=== PATIENT | male | born 1965 | race Caucasian/White ===

== ENCOUNTER 2020-07-25 13:14 | Emergency (ER) | payer OTHER, SELFPAY ==
--- NOTE | ~2020-07-25 | CT_ITS ---
EXAMINATION: CT abdomen pelvis wo con DATE: 07/25/2020 14:25 INDICATION: Left flank pain. TECHNIQUE: Computed tomography (CT) of the abdomen and pelvis was performed without intravenous contr ast. Automated exposure control and iterative reconstruction technique were employed. The dose-length product was 245.10 mGy-cm. COMPARISON: None. FINDINGS: The visualized portions of the lung bases demonstrate mild atelectasis. No pleural effusion . The heart size is normal. No pericardial effusion. The liver, spleen, gallbladder, pancreas, adrena l glands, and right kidney are normal. There are cysts in left kidney measuring up to 2.0 cm. There i s a 2 mm stone in left kidney. Stool distends the proximal colon. The appendix is normal. There are n o pathologically enlarged lymph nodes. There is no free intraperitoneal fluid. IMPRESSION: 1. 2 mm nonobstructing left kidney stone. Reviewed, dictated and finalized at location B. [employer]
[2020-07-25 14:09] VITALS: BP 126/87; PULSE 80; RESP 17; TEMP 36.2; O2SAT 97
--- NOTE | 2020-07-25 14:16 | ED.ABDPAIN ---
HPI - Abdominal Pain General Chief Complaint: Abdominal Pain Stated Complaint: L FLANK PAIN X2D Time Seen by Provider: 07/25/20 14:13 Source: patient Mode of arrival: ambulatory Limitations: no limitations History of Present Illness HPI narrative: Patient is a 55-year-old male complaining of left flank pain rating to his left lower quadrant, 5 out of 10, sharp started proximately 2 days ago. Patient denies any nausea vomiting diarrhea. Patient denies any chest pain, shortness of breath, abdominal pain, fever or chills. Patient denies any urinary symptoms. Related Data Allergies Allergy/AdvReac Type Severity Reaction Status Date / Time No Known Allergies Allergy Unknown Unverified 11/19/08 12:02 Review of Systems Review of Systems: All systems reviewed & are unremarkable except as noted in HPI and below Constitutional: Constitutional: Denies body ache(s), Denies chills, Denies excessive sweating, Denies fatigue, Denies fever(s), Denies headache(s), Denies lethargy, Denies malaise, Denies weakness and Denies weight loss Eyes: Eyes: Denies blurry vision, Denies change in vision and Denies loss of vision ENT: Denies dizziness, Denies ear discharge, Denies headache(s), Denies lip swelling, Denies epistaxis, Denies nasal congestion, Denies neck pain, Denies throat swelling and Denies tongue swelling Cardiovascular: Cardiovascular: Denies chest pain, Denies chest pain at rest, Denies chest pain with activity, Denies diaphoresis, Denies rapid heart rate, Denies edema, Denies irregular heart rhythm, Denies lightheadedness, Denies palpitations, Denies dyspnea and Denies dyspnea on exertion Respiratory: Respiratory: Denies chest congestion, Denies cough, Denies hemoptysis, Denies dyspnea and Denies dyspnea on exertion Gastrointestinal: Gastrointestinal: Denies abdominal pain, Denies melena, Denies hematochezia, Denies diarrhea, Denies nausea, Denies vomiting and Denies hematemesis Musculoskeletal: Musculoskeletal: Denies abnormal gait, Denies deformity, Denies joint swelling, Denies limited range of motion, Denies neck pain and Denies numbness Neurologic: Denies Abnormal speech present, Denies abnormal gait, Denies confusion, Denies dizziness, Denies headache(s), Denies focal weakness, Denies loss of vision, Denies numbness, Denies Other visual disturbances, Denies Sensory deficit (Neuro) and Denies weakness Psychiatric: Psychiatric: Denies confusion, Denies depression, Denies auditory hallucinations, Denies homicidal ideation and Denies suicidal ideation Endocrine: Endocrine: Denies cold intolerance, Denies excessive sweating, Denies fatigue, Denies heat intolerance and Denies palpitations Hematologic/Lymphatic: Hematologic/Lymphatic: Denies easy bleeding and Denies easy bruising Allergic/Immunologic: Allergic/Immunologic: Denies lip swelling, Denies throat swelling and Denies tongue swelling [facility] Social History Social History Gender identity (if verbalized by the patient): Male Exam Const: General: cooperative, healthy appearing, comfortable, no acute distress, well developed, alert and awake; No confusion Orientation/consciousness: oriented to person, oriented to place, oriented to time, patient oriented x3 and No confusion Limitations: no limitations HENMT: Head: normal to inspection, normocephalic and atraumatic Ears: hearing grossly normal bilaterally, TM normal on the right and TM normal on the left General nose exam: Normal external nose present, Normal nares present and No nasal discharge present Face and sinus: normal facial exam Mouth: Yes Normal oral and palatal mucosa present, Yes lip normal, Yes tongue normal and Yes oropharynx normal Throat: posterior oropharynx normal, tonsils normal and uvula midline Eyes: General: appearance normal, both eyes and all related structures Pupils: Equal, round and reactive pupils present EOM: EOMs intact bilaterally Neck: Neck: normal visual inspection, full ROM, no lymphadenopa
--- NOTE | 2020-07-25 14:29 | PC.NURSE ---
1425 - Patient instructed that a urine specimen is needed. Urinal provided. 1427 - Patient to CT.
[2020-07-25 14:31] LABS: Basophils Percent Auto 0.5 % (0.2-1.2); Eosinophils Absolute Auto 0.1 K/mm3 (0-0.3); Eosinophils Percent Auto 0.8 % (0-4.4); Hematocrit 50.3 % (42.0-52.0); Hemoglobin 17.5 g/dL (14.0-18.0); Immature Granulocyte Absolute 0.03 K/mm3 (0.00-0.031); Immature Granulocyte Percent A 0.3 % (0-0.5); Lymphocytes Absolute Auto 1.78 K/mm3 (0.9-3.2); Lymphocytes Percent Auto 20.2 % (18.3-44.2); Mean Corpuscular HGB Conc 34.8 g/dl (32-36); Mean Corpuscular Hemoglobin 31.4 pg (26-34); Mean Corpuscular Volume 90.3 fl (80-100); Mean Platelet Volume 8.8 fl (7.4-10.4); Monocytes Absolute Auto 0.7 K/mm3 (0.1-0.6); Monocytes Percent Auto 7.9 % (2.6-8.5); Neutrophils Absolute Auto 6.2 K/mm3 (1.3-6.7); Neutrophils Percent Auto 70.3 % (45.5-73.1); Platelet Count Result 203 k/mm3 (150-375); Red Blood Count 5.57 M/mm3 (4.6-6.20); Red Cell Distribution Width 12.1 % (11.5-14.5); White Blood Count 8.8 K/mm3 (4.5-10.0)
[2020-07-25 14:34] LABS: Add Urine Microscopic? YES; Appearance Urine Clear (Clear); Bilirubin Urine Negative (Negative); Blood Urine 1+ (Negative); Color Urine Yellow (Yellow); Glucose Urine UA Negative (Negative); Ketones Urine Negative (Negative); Leukocyte Esterase Ur Negative LEU/UL (Negative); Mucus Urine Rare /lpf; Nitrate Urine Negative (Negative); Protein Urine 1+ mg/dL (Negative); Specific Grav Ur 1.028 (1.001-1.035); WBC Urine 0-3 /hpf
[2020-07-25 14:42] LABS: Alanine Aminotransferase 17 U/L (4-50); Alkaline Phosphatase 95 U/L (38-126); Anion Gap 6 mmol/L (8-16); Aspartate Amino Transferase 27 U/L (17-59); Bilirubin,Total 0.8 mg/dL (0.2-1.3); Blood Urea Nitrogen 8 mg/dL (9-20); Calcium 9.4 mg/dL (8.4-10.2); Carbon Dioxide 28 mmol/L (22-30); Chloride 99 mmol/L (98-107); Estimated CRCL calculation 92 ml/min; Estimated Glomerular Filt Rate > 60; Glucose 115 mg/dL (75-110); Lipase 29 U/L (23-300); Potassium 4.1 mmol/L (3.4-5.0); Sodium 133 mmol/L (137-145)
[2020-07-25 14:46] VITALS: BP 122/92; PULSE 73; RESP 14; O2SAT 98
[2020-07-25] MEDS: KETOROLAC 30 MG/ML VIAL (*BKC) IV PUSH (16:34)
== END 2020-07-25 16:39 | disposition home or self-care (01) ==
PROVIDERS: Emergency Medicine; Emergency Provider Emergency Medicine
DX: N23 Unspecified renal colic (principal)
CPT/HCPCS: 36415; 74176; 80053; 81001; 83690; 85025; 96374; 99284; J1885

== ENCOUNTER 2024-06-10 09:20 | Outpatient (CLI) | payer OTHER, SELFPAY ==
[2024-06-10 09:49] LABS: Basophils Absolute Auto 0.1 K/mm3 (0.0-0.1); Basophils Percent Auto 0.8 % (0.2-1.2); Eosinophils Absolute Auto 0.3 K/mm3 (0-0.3); Eosinophils Percent Auto 3.1 % (0-4.4); Hematocrit 48.6 % (42.0-52.0); Hemoglobin 16.2 g/dL (14.0-18.0); Immature Granulocyte Absolute 0.03 K/mm3 (0.00-0.031); Immature Granulocyte Percent A 0.4 % (0-0.5); Lymphocytes Absolute Auto 1.67 K/mm3 (0.9-3.2); Mean Corpuscular HGB Conc 33.3 g/dl (32-36); Mean Corpuscular Hemoglobin 31.3 pg (26-34); Mean Corpuscular Volume 93.8 fl (80-100); Mean Platelet Volume 8.5 fl (7.4-10.4); Monocytes Absolute Auto 0.8 K/mm3 (0.1-0.6); Monocytes Percent Auto 9.6 % (2.6-8.5); Neutrophils Absolute Auto 5.5 K/mm3 (1.3-6.7); Neutrophils Percent Auto 66.1 % (45.5-73.1); Platelet Count Result 201 k/mm3 (150-375); Red Blood Count 5.18 M/mm3 (4.6-6.20); Red Cell Distribution Width 13.2 % (11.5-14.5); White Blood Count 8.4 K/mm3 (4.5-10.0)
[2024-06-10 11:14] LABS: Alanine Aminotransferase 14 U/L (6-50); Albumin Level 4.3 g/dL (3.5-5.1); Alkaline Phosphatase 112 U/L (38-126); Anion Gap 8 mmol/L (4-12); Aspartate Amino Transferase 23 U/L (17-59); Bilirubin,Total 0.8 mg/dL (0.2-1.3); Blood Urea Nitrogen 11 mg/dL (9-20); Carbon Dioxide 31 mmol/L (22-30); Chloride 101 mmol/L (98-107); Estimated Glomerular Filt Rate > 60; Glucose 100 mg/dL (65-110); Potassium 4.7 mmol/L (3.4-5.0); Sodium 140 mmol/L (137-145)
== END 2024-06-10 09:21 | disposition home or self-care (01) ==
LOC: ANHLAB 09:22
PROVIDERS: Visit Provider Internal Medicine Hematology & Oncology
DX: C34.12 Malignant neoplasm of upper lobe, left bronchus or lung (principal)
CPT/HCPCS: 36415; 80053; 85025

== ENCOUNTER 2024-06-19 08:57 | Outpatient (CLI) | payer OTHER, SELFPAY ==
--- NOTE | 2024-06-19 11:46 | WPDPFTINT ---
PFT Procedure Performed PFT Procedure Performed Plethysmography (Lung Vol) Diffusing Cap (DLCO) Flow Vol Loop Spirometry w/o Bronchodil PFT Interpretation This is a pulmonary function test with spirometry, plethysmography and diffusing capacity. The test was performed and results interpreted in accordance with the 2019 and 2005 ATS/ERS Task Force guidelines respectively using the Global Lung Function Initiative-2012 reference equations. Patient demonstrated good effort and cooperation. Reproducibility criteria were met. The quality of the spirometry maneuver was Grade A. Findings: Spirometry: There is decreased maximal expiratory airflow at all lung volumes with concave expiratory flow tracing. The contour the inspiratory flow tracing is normal. The FVC is 3.38 L, 73% predicted. The FEV1 is 1.52 L, 43% predicted. The FEV1: FVC ratio is 45%. Plethysmography: The total lung capacity is 7.45 L, 106% predicted. The functional residual capacity is 4.87 L, 133% predicted. The residual volume is 3.84 L, 169% predicted. The residual volume: Total lung capacity ratio is 52%. Plethysmography: The diffusing capacity unadjusted for hemoglobin and carboxyhemoglobin is 10.2, 36% predicted. The diffusing capacity adjusted for alveolar volume is 1.60, 38% predicted. Impression: There is a severe obstructive abnormality. The increase in residual volume to total lung volume ratio is consistent with hyperinflation from an obstructive abnormality. The diffusing capacity unadjusted for hemoglobin and carboxyhemoglobin is severely decreased and remains severely decreased when adjusted for alveolar volume. There are no prior studies for comparison
== END 2024-06-19 08:58 | disposition home or self-care (01) ==
LOC: ANHPFT 08:58
PROVIDERS: Visit Provider Internal Medicine Hematology & Oncology
DX: C34.12 Malignant neoplasm of upper lobe, left bronchus or lung (principal); R94.2 Abnormal results of pulmonary function studies
CPT/HCPCS: 94375; 94726; 94729

== ENCOUNTER 2024-10-20 13:43 | Outpatient (CLI) | payer OTHER, SELFPAY ==
[2024-10-20 14:09] LABS: Estimated Glomerular Filt Rate > 60
== END 2024-10-20 13:44 | disposition home or self-care (01) ==
PROVIDERS: Visit Provider Internal Medicine Hematology & Oncology
DX: I71.40 Abdominal aortic aneurysm, without rupture, unspecified (principal); I72.3 Aneurysm of iliac artery; K59.00 Constipation, unspecified; K76.0 Fatty (change of) liver, not elsewhere classified; D18.09 Hemangioma of other sites; C34.12 Malignant neoplasm of upper lobe, left bronchus or lung
CPT/HCPCS: 71260; 74177; Q9967

== ENCOUNTER 2024-10-29 14:23 | Outpatient (CLI) | payer OTHER, SELFPAY ==
[2024-10-29 14:35] LABS: Basophils Absolute Auto 0.1 K/mm3 (0.0-0.1); Basophils Percent Auto 1.2 % (0.2-1.2); Eosinophils Absolute Auto 0.3 K/mm3 (0-0.3); Eosinophils Percent Auto 3.7 % (0-4.4); Hematocrit 44.2 % (42.0-52.0); Immature Granulocyte Absolute 0.04 K/mm3 (0.00-0.031); Immature Granulocyte Percent A 0.5 % (0-0.5); Lymphocytes Absolute Auto 1.46 K/mm3 (0.9-3.2); Lymphocytes Percent Auto 17.2 % (18.3-44.2); Mean Corpuscular HGB Conc 33.9 g/dl (32-36); Mean Corpuscular Hemoglobin 31.9 pg (26-34); Mean Platelet Volume 8.6 fl (7.4-10.4); Monocytes Absolute Auto 0.8 K/mm3 (0.1-0.6); Monocytes Percent Auto 9.3 % (2.6-8.5); Neutrophils Absolute Auto 5.8 K/mm3 (1.3-6.7); Neutrophils Percent Auto 68.1 % (45.5-73.1); Platelet Count Result 229 k/mm3 (150-375); Red Cell Distribution Width 12.6 % (11.5-14.5); White Blood Count 8.5 K/mm3 (4.5-10.0)
[2024-10-29 14:37] LABS: Blood Urea Nitrogen 10 mg/dL (8-26); Carbon Dioxide 27 mmol/L (22-30); Chloride 102 mmol/L (98-109); Estimated Glomerular Filt Rate > 60; Glucose 85 mg/dL (70-105); Ionized Calcium (POC) 1.18 mmol/L (1.11-1.31); Potassium 4.9 mmol/L (3.5-4.9); Sodium 140 mmol/L (138-146)
--- OUTSIDE RECORDS SUMMARY | 2024-10-29 16:14 | XMS_ITS | Patient Health Summary ---
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 This disclosure is being madepursuant to the Care Everywhere program and may not contain all information available regarding this patient. Last updated 18.[facility] Allergies No known active allergies Medications * Be aware that medications may not be up to date on this document. Alwaysverify current medications with the patient. * NIFEdipine CR osmotic 24hr (Procardia-XL) 30 MG tablet(Started 03/30/2024) Take 1 (one) tablet by mouth once daily * clopidogrel (plaVIX) 75 MG tablet Take 1 (one) tablet by mouth once daily * Breztri Aerosphere 160-9-4.8 MCG/ACT inhaler(Started 04/27/2024) Inhale 2 (two) puffs by mouth 2 times daily * aspirin (Aspirin) 81 MG chew tablet Chew 1 tablet every day by oral route. * albuterol HFA (Proventil; Ventolin; Proair) 108 (90 Base) MCG/ACT inhaler Take 1 (one) puff by mouth every 4 hours as needed Social History Tobacco Use Types Packs/Day Years Used Date Smoking Tobacco: Every Day Cigarettes Smokeless Tobacco: Never Tobacco Cessation:Ready to Q uit: Not Asked; Counseling Given: Not Answered Alcohol Use Standard Drinks/Week Comments Not Currently 0 (1 standard drink = 0.6 oz pur e alcohol) Sex and Gender Information Value Date Recorded Sex Assigned at Not on file Gender Identity Not on file Sexual Orientation Not on file Last Filed Vital Signs Vital Sign Reading Time Taken Comments Blood Pressure 115/80 05/18/2024 4:30 PM CDT Pulse 62 05/18/2024 4:30 PM CDT Temperature 36.7 C (98 F) 05/18/2024 4:30 PM CDT Respiratory Rate 14 05/18/2024 4:30 PM CDT Oxygen Saturation 97% 05/18/2024 4:30 PM CDT Inhaled Oxygen Concentration 21% 05/18/2024 3 :45 PM CDT Weight 58.3 kg (128 lb 8 oz) 05/18/2024 11:03 AM CDT Height 179.1 cm (5' 10.5 ) 05/18/2024 11:03 AM C DT Body Mass Index 18.18 05/18/2024 11:03 AM CDT Procedures * MRI BRAIN WWO CONTRAST(Performed 05/19/2024) Performed for Nodule of left lung * XR CHEST 1VW PORTABLE(Performed 05/18/2024) Performed for Abnormal chest CT * BRONCHOSCOPY(Performed 05/18/2024) * FINE NEEDLE ASPIRATION (STL)(Performed 05/18/2024) Performed for Abnormal chest CT * PATHOLOGY TISSUE(Performed 05/18/2024) Performed for Abnormal chest CT * ENDOTRACHEAL TUBE NOTE(Performed 05/18/2024) * VA DX BRONCHOSCOPE/LAVAGE(Performed 05/18/2024) Performed for Abnormal chest CT * CT CHEST W CONTRAST(Performed 05/11/2024) Performed for Lung nodule * CREATININE - POCT INTERFACED(Performed 05/11/2024) Results * MRI Brain Wwo Contrast (05/19/2024 8:50 AM CDT) Anatomical Region Laterality Modality Head Magnetic Resonan ce 05/19/2024 10:5 2 AM CDT Impressions 05/19/2024 2:52 PM CDT IMPRESSION: 1.No evidence of enhancing lesions to suggest intracranial metastatic disease. The report was drafted by Titus Weller MD (senior vice president) I, Rosales Amaro MD have personally reviewed and interpreted this examination/study. > Interpreting Provider: Rosales Amaro MD on 05/19/2024 2:52 PM Narrative 05/19/2024 2:52 PM CDT PROCEDURE: MRI BRAIN WWO CONTRAST, DATE/TIME OF EXAM: 05/19/2024 8:50 AM, LOCATION [facility] INDICATION: R91.1: Nodule of left lung ADDITIONAL CLINICAL INFORMATION: Ordering Provider Reason For Exam: Nodule of the left lung Technologist Note: None. Additional: None. EXAMINATION: Magnetic resonance imaging (MRI) of the brain without and with contrast CONTRAST: GADOBUTROL 1 MMOL/ML IV SSM SO:6 mL TECHNIQUE: MRI of the brain was performed prior to and following the uneventful administration of 6 mL GADAVIST intravenous gadolinium contrast according to a tumor protocol. COMPARISON: No prior study is available for comparison at the time of this dictation. FINDINGS: No evidence of acute or chronic hemorrhage is identified. No evidence of acute cerebral infarction is seen. There is mild cerebral volume loss with associated ex vacuo ventricular dilatation. No mass effect or midline shift is seen. Periventricular, subcortical, and pontine white matter FLAIR hyperintensities likely represent sequelae of chronic small vessel ischemic disease. No enhancing lesions are identified. Suggestion of a partially empty sella. The corpus callosum and sella appear otherwise grossly unremarkable. The posterior fossa, brainstem, and craniocervical junction appear normal. Other than mild paranasal sinus disease, the visualized portions of the orbits, paranasal sinuses, and mastoids appear normal. The nasal septum is deviated to the right with a septal spur extending between the right middle and inferior turbinates. Normal flow voids are demonstrated in the carotid arteries and basilar artery. The calvarium and visualized cervical spine appear normal. Procedure Note Rosales Amaro MD - 05/19/2024 PROCEDURE: MRI BRAIN WWO CONTRAST, DATE/TIME OF EXAM: 05/19/2024 8:50AM, LOCATION [facility] INDICATION: R91.1: Nodule of left lung ADDITIONAL CLINICAL INFORMATION: Ordering Provider Reason For Exam: Nodule of the left lung Technologist Note: None. Additional: None. EXAMINATION: Magnetic resonance imaging (MRI) of the brain without andwith contrast CONTRAST: GADOBUTROL 1 MMOL/ML IV SSM SO:6 mL TECHNIQUE: MRI of the brain was performed prior to and following the uneventful administration of 6 mL GADAVIST intravenous gadoliniumcontrast according to a tumor protocol. COMPARISON: No prior study is available for comparison at the time ofthis dictation. FINDINGS: No evidence of acute or chronic hemorrhage is identified. No evidence of acute cerebral infarction is seen. There is mild cerebral volume losswith associated ex vacuo ventricular dilatation. No mass effect or midlineshift is seen. Periventricular, subcortical, and pontine white matter FLAIR hyperintensities likely represent sequelae of chronic small vesselischemic disease. No enhancing lesions are identified. Suggestion of a partially empty sella. The corpus callosum and sella appear otherwise grossly unremarkable. The posterior fossa, brainstem, and craniocervicaljunction appear normal. Other than mild paranasal sinus disease, the visualized portions of the orbits, paranasal sinuses, and mastoids appear normal. The nasal septumis deviated to the right with a septal spur extending between the rightmiddle and inferior turbinates. Normal flow voids are demonstrated in thecarotid arteries and basilar artery. The calvarium and visualized cervical spine appear normal. IMPRESSION: 1.No evidence of enhancing lesions to suggest intracranial metastatic disease. The report was drafted by Titus Weller MD (senior vice president) IRosales MD have personally reviewed and interpretedthis examination/study. > Interpreting Provider: Rosales Amaro MD on 05/19/2024 2:52 PM Shon Ogden MD MR ORDERABLES * XR Chest 1Vw Portable (05/18/2024 3:48 PM CDT) Anatomical Region Laterality Modality Chest Digital Radiogra phy 05/18/2024 3:58 PM CDT Narrative 05/19/2024 11:38 AM CDT PROCEDURE: XR CHEST 1VW PORTABLE, DATE/TIME OF EXAM: 05/18/2024 3:48 PM, LOCATION [facility] INDICATION: R93.89: Abnormal chest CT ADDITIONAL CLINICAL INFORMATION: Ordering Provider Reason For Exam: post bronch COMPARISON: Chest CT dated 05/11/2024. FINDINGS/IMPRESSION: Diffuse bilateral coarsened interstitial opacities predominantly within the bilateral upper lobes compatible with emphysema better demonstrated on prior CT. No focal consolidation, pleural effusion or pneumothorax. The superior mediastinal contours and cardiac silhouette are normal. No displaced fracture. Report dictated by Deangelo Cuellar MD, (vice president underwriting). Rhonda Sharif MD have personally reviewed and interpreted this examination/study. > Interpreting Provider: Rhonda Gallagher MD on 05/19/2024 11:38 AM Procedure Note Rhonda Gallagher MD - 05/19/2024 PROCEDURE: XR CHEST 1VW PORTABLE, DATE/TIME OF EXAM: 05/18/2024 3:48PM, LOCATION [facility] INDICATION: R93.89: Abnormal chest CT ADDITIONAL CLINICAL INFORMATION: Ordering Provider Reason For Exam: post bronch COMPARISON: Chest CT dated 05/11/2024. FINDINGS/IMPRESSION: Diffuse bilateral coarsened interstitial opacities predominantly withinthe bilateral upper lobes compatible with emphysema better demonstrated on prior CT. No focal consolidation, pleural effusion or pneumothorax. The superior mediastinal contours and cardiac silhouette are normal. No displaced fracture. Report dictated by Deangelo Cuellar MD, (vice president underwriting). Rhonda Sharif MD have personally reviewed and interpreted this examination/study. > Interpreting Provider: Rhonda Gallagher MD on 05/19/2024 11:38 AM Elly Rosario MD DIAGNOSTIC IMAGING O RDERABLES * BRONCHOSCOPY (05/18/2024 2:54 PM CDT) Report Endoscopy POC [facility] Advanced Diagnostic Bronchoscopy and Interventional Pulmonary Service __ _ Patient Name: Prosper Dodson Procedure Date: 05/18/2024 2:54 PM Date of : 1965 Attending MD: Elly Rosario MD, [id number] Age: 58 __ _ Providers: Elly Rosario MD, Radames Waldrop MD (Fellow), Magnus Horton MD (Fellow), Elsa Swanson TOOL DISPATCHER, Arina Swanson TOOL DISPATCHER, Reinaldo Ayala TOOL DISPATCHER Referring MD: Procedure: Bronchoscopy Indications: Abnormal CT scan of chest Medicines: General Anesthesia Description of Procedure: After obtaining informed consent, the linear EBUS bronchoscope was introduced through the and advanced to the. The procedure was accomplished without difficulty. The patient tolerated the procedure well. Total fluoroscopy time was 3 minutes, 16 seconds. Findings: Noted moderate amount of clear mucus in bilateral airwat. Therapeutic suctioning was performed in the entire tracheobronchial tree. Mucus was removed from the airway and the airway was cleared. FIRST lesion: The Ion Shape Sensing Robotic Assisted Bronchoscope was brought into the field and the process of registration was carried out. The guide catheter was used for peripheral navigational bronchoscopy using the planned pathway into the JEAN MARIE lingular lesion and was able to be wedged peripherally at a distance of 0mm away from the target. We locked the catheter position in, and removed the vision probe. We introduced the radial EBUS probe and obtained a(n) concentric vhzy-lmt-tsqird image location relative to the lesion in the same lobe. We confirmed our location with a fluoroscopic C-arm. After that, we used the 1.1mm ERBE flexible cryoprobe with freeze time of 3-5 seconds to obtain 7 large samples for transbronchial cryobiopsies of the same lesion. Hemostasis was ensured by keeping the ION catheter in place for tamponade and TXA *2. LEONCIO is concerning non small cell lung cancer. Second Lesion: The Ion Shape Sensing Robotic Assisted Bronchoscope was brought into the field and the process of registration was carried out. The guide catheter was used for peripheral navigational bronchoscopy using the planned pathway into the JEAN MARIE apical lesion and was able to be wedged peripherally at a distance of 6mm away from the target. We locked the catheter position in, and removed the vision probe. We introduced the radial EBUS probe and obtained a(n) eccentric hgqy-gxa-thmicy image location relative to the lesion in the same lobe. We confirmed our location with a fluoroscopic C-arm. We then removed the R-EBUS and introduced the biopsy tools starting with a 21G ION bronchoscopic peripheral needle for Transbronchial Needle Aspirations (TBNA) for two passes. After that, we used the 1.1mm ERBE flexible cryoprobe with freeze time of 3-5 seconds to obtain 8 large samples for transbronchial cryobiopsies of the same lesion. Hemostasis was ensured by keeping the ION catheter in place for tamponade and TXA. Post Ion robotic bronch, regular bronch was performed and no active bleeding was appreciated. An endobronchial ultrasound endoscope was utilized to screen for LN at 4L, 4R, 10L, 10R, 11L, 11R, 7, with no pathologic lymph node >1cm apprecaited. Estimated Blood Loss: Estimated blood loss was minimal. Complications: No immediate complications. Estimated blood loss: Minimal __ _ Impression: - Abnormal CT scan of chest - Therapeutic suctioning was performed. - Endobronchial ultrasound was performed. Recommendation: - Await biopsy results. Attending Participation: I was present and participated during the entire procedure, including non-ness portions. Elly Rosario MD 05/18/2024 4:25:16 PM Magnus Horton MD, Radames Waldrop MD, Note Initiated On: 05/18/2024 2:54 PM Number of Addenda: 0 [facility] [address] [place] [address] [facility] 05/18/2024 2:54 PM CDT Elly Rosario MD RESPIRATORY THERAPY ORDERABLES [facility] * FINE NEEDLE ASPIRATION (STL) (05/18/2024 2:21 PM CDT) Case Report Medical Cytology Report Case: [id number] Authorizing Provider: Elly Rosario MD Collected: 05/18/2024 02:21 PM Ordering Location: [facility] Received: 05/18/2024 02:59 PM Pathologist: Annabel Zamorano MD Specimens: A) - Lung, JEAN MARIE lesion B) - Lung, JEAN MARIE Apical 05/19/2024 11:59 AM CDT [facility] Specimen Adequacy Adequate cellularity for evaluation. 05/19/2024 11:59 AM CDT [facility] Final Diagnosis Lung, left upper lobe lesion, cryobiopsy/touchprep (A): - Malignant cells present, morphologically compatible with non-small cell carcinoma Lung, left upper lobe apical lesion, EBUS/FNA and cryobiopsy/touchprep (B): - Specimen consists of reactive respiratory epithelial cells and macrophages - Negative for definite malignant cells 05/19/2024 11:59 AM CDT [facility] Clinical History The patient is a 58 year old male with a 8 x 6 mm spiculated nodular density within the left apex & a 1.4 cm spiculated pulmonary nodule within the inferior aspect of the left upper lobe. 05/19/2024 11:59 AM CDT [facility] Gross Description A) 3 diff quick stained touch preps B) 1 pap stained smear slide, 1 diff quick stained smear slide, 6 diff quick stained touch prep slides and 1 cell block (scant) from 25cc of light red, slightly cloudy collection fluid Immediate interpretation by Dr. Dima Zamorano A) Lung, JEAN MARIE lesion, Touchprep: Episode 1: Pass 1: Malignant, non small cell carcinoma (13:45) Episode 2: Pass 2: Malignant, non small cell carcinoma (13:50) Pass 3: Malignant, non small cell carcinoma B) Lung, JEAN MARIE apical lesion, EBUS/FNA: Episode 1: Pass 1: Inadequate (14:10) Lung, JEAN MARIE apical lesion, Touchprep: Episode 1: Pass 1: Inadequate (14:15) Episode 2: Pass 2/3: Inadequate (14:20) Pass 4/5: Inadequate Episode 3: Pass 6: Inadequate (14:25) 05/19/2024 11:59 AM CDT [facility] Microscopic Description Please also correlate with concurrent surgical pathology report, [id number]. If clinically indicated, additional sampling is recommended for part B. 05/19/2024 11:59 AM CDT [facility] Pathologist Location at [facility] 05/19/2024 11:59 AM CDT [facility] Disclaimer The performance characteristics of all immunohistochemical and indirect immunofluorescence stains (if any) cited in this report were determined by the Histopathology Laboratory of [facility]. Some of these tests rely on the use of analyte-specific reagents and are subject to specific labeling requirements by the US Food and Drug Administration. Such tests were developed by the [facility]ology Laboratory of [facility] and have not been cleared or approved by the FDA. The FDA has determined that such clearance and approval is not necessary. These tests are used for clinical purposes and should not be regarded as investigational or for research. This laboratory is certified under the Clinical Laboratory Improvement Amendments (CLIA) as qualified to perform high complexity clinical laboratory testing. This case has been personally reviewed and interpreted by the attending (teaching) pathologist. 05/19/2024 11:59 AM CDT [facility] Embedded Images 05/19/2024 11:59 AM CDT [facility] Pathology/Cytology ENTIRE LUNG / Unknown Collection / Unknown 05/18/2024 2:21 PM CDT 05/18/2024 2:59 PM CDT Miscellaneous samples (specimen) ENTIRE LUNG / Unknown 05/18/2024 2:21 PM CDT 05/18/2024 2:59 PM CDT Elly Rosario MD LAB - PATHOLOGY/CYTO LOGY ORDERABLES [facility] [address] [place], [place] [id number] [place] [address] * PATHOLOGY TISSUE (05/18/2024 1:54 PM CDT) Case Report Surgical Pathology Report Case: [id number] Authorizing Provider: Elly Rosario MD Collected: 05/18/2024 01:54 PM Ordering Location: [facility] Received: 05/18/2024 02:49 PM Pathologist: David Belcher MD Specimens: A) - Lung, Left Upper Lobe B) - Lung, Left Upper Lobe, Apical 05/20/2024 8:54 AM [facility] Final Diagnosis Left upper lung lobe, transbronchial biopsy (A): - Adenocarcinoma Left upper lung lobe apex, transbronchial biopsy (B): - Fragments of benign airway wall - No malignancy identified 05/20/2024 8:54 AM [facility] Microscopic Description and Comment The JEAN MARIE biopey (part A) shows acinar-pattern adenocarcinoma with marked nuclear pleomorphism and fibrotic stroma, characteristic of invasive acinar-pattern lung adenocarcinoma. The immunoprofile will be reported in an addendum. 05/20/2024 8:54 AM [facility] Clinical History The patient is a 58 year old male with a 8 x 6 mm spiculated nodular density within the left apex & a 1.4 cm spiculated pulmonary nodule within the inferior aspect of the left upper lobe. 05/20/2024 8:54 AM [facility] Gross Description The requisition and specimen(s) are identified with the patient's name Prosper Dodson . Received in formalin, specimen A , consists of multiple alejo-feng to red-pink, variegated, irregular, tissue fragments averaging 0.2 cm in greatest dimension and aggregating to 0.6 x 0.5 x 0.1 cm which are submitted in toto in a single cassette labeled A1. Received in formalin, specimen B , consists of multiple alejo-feng to red-pink, variegated, irregular, tissue fragments ranging from 0.1 to 0.4 cm in greatest dimension and aggregating to 0.6 x 0.5 x 0.1 cm which are submitted in toto in a single cassette labeled B1. RB 05/20/2024 8:54 AM [facility] Addendum 1 The tumor cells (par t A, block A1) are positive for TTF-1 and CK7 while negative for p40. The findings would be in keeping with lung primary. 05/20/2024 8:54 AM CDT [facility] Addendum electronically signed by David Belcher MD on 05/20/2024 at 8:54 AM Pathologist Location at [facility] 05/20/2024 8:54 AM CDT [facility] Disclaimer The performance characteristics of all immunohistochemical and indirect immunofluorescence stains (if any) cited in this report were determined by the Histopathology Laboratory of [facility]. Some of these tests were developed by our own laboratory and have not been cleared or approved by the US Food and Drug Administration. The FDA does not require this test to go through premarket FDA review. These tests are used for clinical purposes. They should not be regarded as investigational or for research. This laboratory is certified under the Clinical Laboratory Improvement Amendments (CLIA) as qualified to perform high complexity clinical laboratory testing. This case has been personally reviewed and interpreted by the attending (teaching) pathologist. 05/20/2024 8:54 AM CDT [facility] Embedded Images 05/20/2024 8:54 AM CDT [facility] Biopsy, Excision (Lung, Left Upper Lobe) 05/18/2024 1:54 PM CDT 05/18/2024 2:49 PM CDT Comment:Pre-op diagnosis: ABNORMAL CHEST CT Biopsy, Excision (Lung, Left Upper Lobe) 05/18/2024 2:18 PM CDT 05/18/2024 2:49 PM CDT Comment:Pre-op diagnosis: ABNORMAL CHEST CT Elly Rosario MD LAB - PATHOLOGY/CYTO LOGY ORDERABLES Performing Organization Address City/State/[facility] Phone Number [facility] [address] [place], [place] [id number] [place] [address] * ETT LINE PERFORMABLE (05/18/2024 1:37 PM CDT) Narrative Norma Florence Anes Asst - 05/18/2024 1:37 PM CDT Norma Florence Anes Asst 05/18/2024 1:38 PM Endotracheal Tube Placement: Patient Location: OR. Intubation Event Date/Time: 05/18/2024 1:22 PM Procedure: intubation ([id number]) Procedure Section: Sedation: under general anesthesia. Indications for Airway Management: anesthesia Induction: standard IV Patient Position: sniffing and supine Mask Ventilation: easy with oral airway. Blade Type: Belcher Blade Size: 2 Laryngoscopy View: grade 1 (full cords) Intubation Adjuncts: stylet Tube: endotracheal tube Placement: oral Tube type: cuff - inflated Tube Size (MM): 8.5 Depth of Insertion (CM): 24 Measured From: lips Cuff Inflated With: air Number of Attempts: 1. Placement Verified By: direct visualization, bilateral breath sounds, chest auscultation and CO2 monitor Tube secured with: adhesive tape. Dentition unchanged? Yes Difficult Airway? No. Procedure Start Time: 05/18/2024 1:22 PM. Procedure End Time: 05/18/2024 1:22 PM. Procedure Total Time: 0 minutes. Staff Section Anesthesia Provider: Norma Florence Anes Asst, Performed the procedure Provider #1: Lit Lucas MD. Additional Comments: Atraumatic intubation. Gums, lips, mouth and tongue as in preop.. Lit Lucas MD GENERAL ANESTHESIA O RDERABLES * CT Chest W Contrast (05/11/2024 8:31 AM CDT) Anatomical Region Laterality Modality Chest Computed Tomogra phy 05/11/2024 8:42 AM CDT Impressions 05/11/2024 1:33 PM CDT Impression: 1.There is a spiculated pulmonary nodule measuring 1.4 cm within the inferior aspect of the left upper lobe which is suspicious. Additional spiculated nodular density within the left apex may represent additional pulmonary nodule versus nodular scarring. Recommend PET/CT and/or biopsy for further evaluation. (No previous imaging is available for comparison at this time). 2.Moderate emphysema with upper lobe predominance. 3.The ascending aorta just above the sinotubular junction is aneurysmal measuring 5.3 cm. 4.Hepatic hemangioma noted within segment 3. > Dictated by Osei Hammonds DO (vice president underwriting). IJacquie MD have personally reviewed and interpreted this examination/study. > Interpreting Provider: Jacquie Pond MD on 05/11/2024 1:33 PM Narrative 05/11/2024 1:33 PM CDT PROCEDURE: CT CHEST W CONTRAST, DATE/TIME OF EXAM: 05/11/2024 8:32 AM, LOCATION [facility] INDICATION: R91.1: Lung nodule COMPARISON: None. TECHNIQUE: CT of the chest was performed following the uneventful administration of 100 mL of Isovue 370 intravenous contrast according to standard protocol. Findings: Lower Neck and Axillae: Normal. Lungs: There is moderate emphysema upper lobe predominance emphysematous change with scarring and bullae noted within the bilateral lung apices. There is 8 x 6 mm spiculated nodular density within the left apex which may represent pulmonary nodule versus nodular scarring. There are scattered areas of subsegmental atelectasis. There is a spiculated pulmonary nodule within the inferior aspect of the left upper lobe (series 4 image 61) that measures 1.4 cm. No previous CTs available for comparison. Heart and Pericardium: The cardiac chambers are normal in size. No pericardial fluid or thickening is present. The coronary arteries are atherosclerotic. Mediastinum and Petrona: No enlarged lymph nodes are present. Thoracic Vasculature: The ascending aorta just above the sinotubular junction is aneurysmal measuring 5.3 cm in maximal diameter (series 6 image 60). Bones and Chest Wall: Bone windows demonstrate no suspicious lytic or blastic lesions. The visible osseous structures are intact. Upper Abdomen: Several hypodensities are seen to be associated with the left kidney and likely represent cysts. There is circumferential atheromatous plaque of the visualized portions of the abdominal aorta. There is a 1.8 cm hypodense focus within hepatic segment 3 with peripheral nodular discontinuous contrast puddling likely representing a hepatic hemangioma. Procedure Note aLura Pond MD - 05/11/2024 PROCEDURE: CT CHEST W CONTRAST, DATE/TIME OF EXAM: 05/11/2024 8:32 AM, LOCATION [facility] INDICATION: R91.1: Lung nodule COMPARISON: None. TECHNIQUE: CT of the chest was performed following the uneventful administration of 100 mL of Isovue 370 intravenous contrast according to standard protocol. Findings: Lower Neck and Axillae: Normal. Lungs: There is moderate emphysema upper lobe predominance emphysematous change with scarring and bullae noted within the bilateral lung apices. There is8 x 6 mm spiculated nodular density within the left apex which mayrepresent pulmonary nodule versus nodular scarring. There are scattered areas of subsegmental atelectasis. There is a spiculated pulmonary nodule withinthe inferior aspect of the left upper lobe (series 4 image 61) that measures 1.4 cm. No previous CTs available for comparison. Heart and Pericardium: The cardiac chambers are normal in size. No pericardial fluid orthickening is present. The coronary arteries are atherosclerotic. Mediastinum and Petrona: No enlarged lymph nodes are present. Thoracic Vasculature: The ascending aorta just above the sinotubular junction is aneurysmal measuring 5.3 cm in maximal diameter (series 6 image 60). Bones and Chest Wall: Bone windows demonstrate no suspicious lytic or blastic lesions. The visible osseous structures are intact. Upper Abdomen: Several hypodensities are seen to be associated with the left kidney and likely represent cysts. There is circumferential atheromatous plaque ofthe visualized portions of the abdominal aorta. There is a 1.8 cm hypodense focus within hepatic segment 3 with peripheral nodular discontinuous contrast puddling likely representing a hepatic hemangioma. Impression: 1.There is a spiculated pulmonary nodule measuring 1.4 cm within the inferior aspect of the left upper lobe which is suspicious. Additional spiculated nodular density within the left apex may represent additional pulmonary nodule versus nodular scarring. Recommend PET/CT and/or biopsy for further evaluation. (No previous imaging is available for comparisonat this time). 2.Moderate emphysema with upper lobe predominance. 3.The ascending aorta just above the sinotubular junction is aneurysmal measuring 5.3 cm. 4.Hepatic hemangioma noted within segment 3. > Dictated by Osei Hammonds DO (vice president underwriting). IJacquie MD have personally reviewed and interpreted this examination/study. > Interpreting Provider: Jacquie Pond MD on 05/11/2024 1:33 PM Shon Ogden MD CT ORDERABLES * CREATININE - POCT INTERFACED (05/11/2024 8:19 AM CDT) Creatinine POCT 0.66 0.30 - 1.30 mg/dL 05/11/2024 8:21 AM CDT [facility] eGFR >90 >=90 mL/min/1.7 3 m2 05/11/2024 8:21 AM T [facility] Blood BLOOD SPECIMEN / Unknown 05/11/2024 8:19 AM CDT 05/11/2024 8:21 AM CDT Shon Ogden MD LAB - POINT O F CARE ORDERABLES Performing Organization Address [facility]/State/[facility] Co de Phone Number [facility] [address] [place] [phone], [facility] [phone] Care Teams Sheetmetal Patternmaker Relationship Specialty [place] [address] [place] [address] [address] [place] [id number] PCP - General Internal Medicine 04/29/24
--- OUTSIDE RECORDS SUMMARY | 2024-10-29 16:14 | XMS_ITS | CONTINUITY OF CARE DOCUMENT ---
Author Name gopal herron Address Unknown Organization [facility] Address [address] [place] [address] Phone [phone] Care Team Providers Care Desk Operator Name Role Phone Priscilla ANTONIO, Rj Unavailable [phone] TATIANA ANTONIO, NII Unavailable TATIANA ANTONIO, NII Unavailable PROBLEMS Condition Status Date Provider Notes Hyperkalemia active Chiquita Hernandez Abnormal EKG active Constantine Trujillo MD Tobacco abuse active Constantine Trujillo MD HTN essential active Constantine Trujillo MD h/o Kidney stones active Constantine Trujillo MD Shortness of breath with exertion active Us mynor Trujillo MD Pulmonary nodule, spiculated , left upper lobe, concerning for malignancy active Rj Germain Ascending aorta dilitation active Rj tyler MD Aortic regurgitation, severe active Rj Wells MD Abdominal aortic aneurysm, w ithout rupture, unspecified active Rj Wells MD TIA active Rj Wells MD Cardiology examination active Rj carlisle MD COPD active Rj Wells MD Lung cancer active Rj Wells MD ENCOUNTERS Date Type Provider Location Encounter Diag nosis - In-person encounter Office Visit Rj Wells MD [facility] Lung cancer - In-person encounter Office Visit Rj Wells MD [facility] - In-person encounter Office Visit Rj Wells MD [facility] Pulmonary nodule, spiculated, left upper lobe, concerning for malignancyCardiology examinationCOPD - In-person encounter Office Visit Rj Wells MD [facility] Pulmonary nodule, spiculated, left upper lobe, concerning for malignancyAscending aorta dilitationAortic regurgitation, severeAbdominal aortic aneurysm, without rupture, unspecifiedTIA - In-person encounter Office Visit Constantine Trujillo MD [facility] Abnormal EKGTobacco abuseHTN essentialh/o Kidney stonesShortness of breath with exertion VITAL SIGNS Date Observation Value Provider Body Mass Index (Ratio) 17.85 kg/m2 Marilee Wells MD blood pressure, diastolic 88 mm[Hg] Shiva [facility] blood pressure, systolic 120 mm[Hg] Amaris danilo [facility] oxygen saturation, oximetry 97 % [facility] 87 [facility]min Pamela [facility] blood pressure, cuff size regular Shiva nieves [facility] weight E&M 128 [lb_av] [facility] height E&M 71 [in_i] [facility] Body Mass Index (Ratio) 17.32 kg/m2 Marilee Wells MD blood pressure, diastolic 90 mm[Hg] Stephen Swan blood pressure, systolic 126 mm[Hg] Fantasma ob Delanot oxygen saturation, oximetry 98 % Emanuel Swan pulse rate 78 /min Emanuel Swan weight E&M 124.2 [lb_av] Emanuel Wickt height E&M 71 [in_i] [facility] Body [facility] Index (Ratio) 16.87 kg/m2 Ray blood Sosa blood pressure, cuff size regular Ta jeannette Belcher blood pressure, diastolic 88 mm[Hg] Ta jeannette Belcher blood pressure, systolic 110 mm[Hg] Micky minor Belcher pulse rate 93 /min Zaira Belcher oxygen saturation, oximetry 98 % Zaira Belcher weight E&M 121 [lb_av] Zaira Belcher respiratory rate E&M 12 /min Zaira Belcher height E&M 71 [in_i] Zaira Jackson Body Mass Index (Ratio) 17.29 kg/m2 Marilee Wells MD blood pressure, diastolic 89 mm[Hg] Stephen rret blood pressure, systolic 121 mm[Hg] Jar ret pulse rate 69 /min Augustin y blood pressure, cuff size regular Stephen rret oxygen saturation, oximetry 100 % Augustin weight E&M 124 [lb_av] Augustin y respiratory rate E&M 16 /min Augustin height E&M 71 [in_i] Augustin y Body Mass Index (Ratio) 21.76 kg/m2 Travis Trujillo MD blood pressure, cuff size regular Ke rri Morrouenedhiraj blood pressure, diastolic 80 mm[Hg] Ke rri Morrouenedhiraj blood pressure, systolic 122 mm[Hg] Rojas Kendall oxygen saturation, oximetry 98 % Heidi Kendall respiratory rate E&M 16 /min Heidi gaines pulse rate 85 /min Heidi puckett weight E&M 156 [lb_av] Heidi Sextonjimanderson lder height E&M 71 [in_i] Heidi Hookerdeisi lder ALLERGIES No Known Drug Allergies HISTORY OF MEDICATION USE Medication Status Instructions Dates Provider Indications Com ments aspirin 81 mg tablet,delayed release (DR/EC) active Take 1 tablet by mouth once a day Rj Raymundotri Aerosphere 160-9-4.8 mcg/actuation HFA aerosol inhaler active Emanuel Swan albuterol sulfate 90 mcg/actuation HFA aerosol inhaler active Inhale 1-2 puff using inhaler every four to six hours 2 Rj Wells MD clopidogrel 75 mg tablet completed Take 1 tablet by mouth once a day - 0 Rj Wells MD nifedipine 30 mg tablet extended release 24hr active Take 1 tablet by mouth once daily SOCIAL HISTORY Date Observation Value Provider Underweight yes Rj Wells MD alcohol use no Rj Wells MD smoking/tobacco cess ation, patient education and counseling yes Rj Wells MD number of years as a smoker 42 a Rj Wells MD smoking history, tot al pack/day 2 ppd Rj Wells MD cigarette use yes Rj Wells MD smoking status Current every day smoker Coral Wells MD Underweight yes Rj Wells MD alcohol use no Rj Wells MD smoking/tobacco cess ation, patient education and counseling yes Rj Wells MD number of years as a smoker 42 a Rj Wells MD smoking history, tot al pack/day 2 ppd Rj Wells MD cigarette use yes Rj Wells MD smoking status Current every day smoker Coral Wells MD Underweight yes Emanuel Swan alcohol use no Rj Wells MD smoking/tobacco cess ation, patient education and counseling yes Rj Wells MD number of years as a smoker 42 a Rj Wells MD smoking history, tot al pack/day 2 ppd Rj Wells MD cigarette use yes Rj Wells MD smoking status Current every day smoker Coral Wells MD alcohol use no Rj Wells MD smoking/tobacco cess ation, patient education and counseling yes Rj Wells MD number of years as a smoker 42 a Rj Wells MD smoking history, tot al pack/day 2 ppd Rj Wells MD cigarette use yes Rj Wells MD smoking status Current every day smoker Coral Wells MD Underweight yes Rj Wells MD number of grandchildren Constantine Trujillo MD U shar Trujillo MD alcohol use no Constantine Trujillo MD social history E&M S moking History: P atluiz currently smokes every day. P atluiz has been counseled to quit. Constantine Trujillo MD social history reviewed E&M revi ewed - no changes required Constantine Trujillo MD smoking/tobacco cess ation, patient education and counseling yes Constantine Trujillo MD number of years as a smoker 42 a Heidi Kendall smoking history, tot al pack/day 2 ppd Heidi Kendall cigarette use yes Heidi Geovany elder smoking status Current every day smoker K yury Kendall FAMILY HISTORY Family Member Condition First Degree Blood Relative No Known Fam pelon History INSURANCE PROVIDERS Payer name Policy type / Coverage type [place]ing red green party ID B[employer]TRY [employer] [id number] ADVANCE DIRECTIVES Name Date DISCUSSED - NO DECISION MADE TREATMENT PLAN Date Name Performer Cardiology Rj Germain Cardiology Rj Germain Cardiology: T he Patient was reencouraged to stop smoking. Rj Wells MD Cardiology:This visi t has been a part of the consistent, comprehensive, and ongoing management of the chronic medical condition(s) listed above for the patient. BP today: 120/88 P rior BP: 126/90 (04/27/2024) His updated medication list for this problem includes: Nifedipine 30 Mg Tablet Extended Release 24hr (Nifedipine) ..... Take 1 tablet by mouth once daily Rj Wells MD Cardiology Rj Germain Cardiology Rj Germain Cardiology:The Patie nt was reencouraged to stop smoking. Rj Wells MD Cardiology: H is updated medication list for this problem includes: Nifedipine 30 Mg Tablet Extended Release 24hr (Nifedipine) ..... Take 1 tablet by mouth once daily Rj Wells MD Cardiology: B P today: 126/90 P rior BP: 110/88 (03/30/2024) His updated medication list for this problem includes: Nifedipine 30 Mg Tablet Extended Release 24hr (Nifedipine) ..... Take 1 tablet by mouth once daily Rj Wells MD Cardiology:Was refer red for lung biopsy and copy of CT PET scan to be made for disc to be sent to Dr Urena. 6 month f/u. Rj Wells MD Cardiology Rj Germain Cardiology Rj Germain Cardiology: T he Patient was reencouraged to stop smoking. Devin retana 2 ppd Rj Wells MD Cardiology: B P today: 110/88 P rior BP: 121/89 (02/17/2024) His updated medication list for this problem includes: Nifedipine 30 Mg Tablet Extended Release 24hr (Nifedipine) ..... Take 1 tablet by mouth once daily Rj Wells MD Cardiology Rj Germain Cardiology Rj Germain Cardiology: T he Patient was reencouraged to stop smoking. Devin retana 2 violet Wells MD Cardiology: B P today: 121/89 P rior BP: 122/80 (08/29/2020) His updated medication list for this problem includes: Nifedipine 30 Mg Tablet Extended Release 24hr (Nifedipine) ..... Take 1 tablet by mouth once daily Rj Wells MD Cardiology Rj Germain Cardiology Rj Germain Cardiology Rj Germain Cardiology Rj Germain Cardiology Rj Germain Cardiology New Patient ':Check P FTs Constantine Trujillo MD Cardiology New Patie nt ':Reveals MAYUR Constantine Trujillo MD Cardiology New Patie nt ':The Patient was reencouraged to stop smoking. Devin retana 2 violet Trujillo MD Cardiology New Patie nt ':Check echo. On no meds BP today: 122/80 Constantine Trujillo MD Date Name Aldosterone BASIC METABOLIC PANE L W/EGFR PROTHROMBIN TIME WIT H INR LIPID PANEL CBC (INCLUDES DIFF/P LT) BASIC METABOLIC PANE L W/EGFR PET/CT Whole Body DLCO - 64421 FRC - 03591 FVC - 16258 CT Chest without con trast DLCO - 21613 FRC - 90085 FVC - 84387 Complete Echo HISTORY OF PROCEDURES Procedure Date Procedure Name Provider Procedure Notes S tatus Complex e/m visit add on jR Wells MD completed Complex e/m visit add on Rj Wells MD completed Complex e/m visit add on Rj Wells MD completed EKG Rj Wells MD complet ed EKG Constantine Trujillo MD completed
--- OUTSIDE RECORDS SUMMARY | 2024-10-29 16:14 | XMS_ITS | Clinical Summary ---
Author Organization [facility] Mallika whitaker Humberto Address [address] [address] Care Team Providers Care Forensic Chemist Name Role Phone Barbara Mcdonald MD Primary Care Provider Allergies No known active allergies Medications Breztri Aerosphere 160 mcg-9mcg-4.8mcg /actuation HFA aerosol inhaler Take 2 Puffs by inhalation 2 times daily. 4 Active albuterol sulfate HFA 90 mcg/actuation aerosol inhaler Take 1 Puff by mouth every 4 hours as needed. Active aspirin (ELIZABETH CHEWABLE) 81 mg Tablet, Chewable Take 81 mg by mouth daily. Active clopidogreL (PLAVIX) 75 mg Tablet Take 1 Tablet by mouth daily. 4 Active tamsulosin (FLOMAX) 0.4 mg capsule Take 1 Capsule by mouth daily. 4 Active NIFEdipine (PROCARDIA XL) 30 mg Extended Release 24 hour tablet Take 1 Tablet (30 mg) by mouth daily. 30 Tablet 3 4 Active Active Problems Problem Noted Date Diagnosed Date Primary malignant neoplasm of left upper lobe of lung 07/12/2024 Chronic obstructive pulmonary disease 03/30/2024 Aortic valve regurgitation 02/17/2024 Ascending aorta dilatation 02/17/2024 Transient ischemic attack 02/17/2024 Calculus of kidney 08/29/2020 Tobacco dependence syndrome 08/29/2020 Encounters Date Type Department Care Team Description 10/29/2024 2:30 PM CDT Office Visit [facility] Oncology and Hematology - [place] [address] [place] [address] Hilton Lindquist MD Malignant neoplasm of upper lobe of left lung (CMS/HCC) (Primary Dx) 10/21/2024 Orders Only [facility] Oncology and Hematology - [place] [address] [place] [address] Hilton Lindquist MD 10/13/2024 Orders Only [facility] Oncology and Hematology - [place] [address] [place] [address] Hilton Lindquist MD Malignant neoplasm of upper lobe of left lung (CMS/HCC) (Primary Dx) 10/07/2024 External Device Data STL ABSTRACTION Provider, Abstract 09/15/2024 External Device Data STL ABSTRACTION Provider, Abstract 09/09/2024 External Device Data STL ABSTRACTION Provider, Abstract 09/09/2024 External Device Data STL ABSTRACTION Provider, Abstract 09/01/2024 External Device Data STL ABSTRACTION Provider, Abstract 08/04/2024 Orders Only [facility] Chatterjee [facility] Radiation Therapy [address] [place] [phone] Ryder Valderrama MD from Last 3 Months Family History Medical History Relation Name Comments No Known Problems Brother No Known Problems Child No Known Problems Father Blood Clots Mother Lung Cancer Mother Heart Disease Sister Relation Name Status Comments Brother Child Alive Father Mother Sister Alive Social History Tobacco Use Types Packs/Day Years Used Date Smoking Tobacco: Every Day Cigarettes 1 45 Smokeless Tobacco: Never Tobacco Cessation:Ready to Q uit: Not Asked; Counseling Given: Not Answered Alcohol Use Standard Drinks/Week Comments Not Currently 0 (1 standard drink = 0.6 oz pur e alcohol) not in years Sex and Gender Information Value Date Recorded Sex Assigned at Not on file Legal Sex Male 12:24 PM CDT Gender Identity Not on file Sexual Orientation Not on file Last Filed Vital Signs Vital Sign Reading Time Taken Comments Blood Pressure 99/65 10/29/2024 2:44 PM CDT Pulse 86 10/29/2024 2:44 PM CDT Temperature 36.7 C (98 F) 10/29/2024 2:44 PM CDT Respiratory Rate 15 10/29/2024 2:44 PM CDT Oxygen Saturation 97% 10/29/2024 2:44 PM CDT Inhaled Oxygen Concentration - - Weight 57.2 kg (126 lb) 10/29/2024 2:44 PM CDT Height 177.8 cm (5' 10 ) 06/29/2024 2:38 PM QUALITY CONTROL SYSTEMS MANAGER Body Mass Index 18.08 06/29/2024 2:38 PM QUALITY CONTROL SYSTEMS MANAGER Plan of Treatment Upcoming Encounters Date Type Department Care Team (Late st Contact Info) Description 02/03/2025 3:30 PM CDT Office Visit [facility] Oncology and Hematology - [place] [address] [facility] [place] [address] Hilton Lindquist MD [address] [place] [address] Health Maintenance Due Date Last Done Comments DTAP/TDAP/TD VACCINES (1 - Tdap) 1982 COLORECTAL SCREENING 2008 Colorectal Cancer Screening 2008 FIT-DNA Q 3 years 2008 FIT/FOBT Q 1 year 2008 Flex Sig/CT Colonography Q 5 years 2008 ZOSTER VACCINE (1 of 2) 2013 RSV VACCINE (60+ or ) (1 - Risk 60-74 years 1-dose series) 2023 INFLUENZA VACCINE (#1) 2024 Preventative Visit- Commercial 08/19/2024 Procedures Procedure Name Priority Date/Time Associated Diagnosis Comments CT CHEST ABDOMEN PELVIS W CONT Routine 10/20/2024 9:23 AM QUALITY CONTROL SYSTEMS MANAGER from Last 3 Months Results * CT CHEST ABDOMEN PELVIS W CONT (10/20/2024 9:23 AM QUALITY CONTROL SYSTEMS MANAGER) Anatomical Region Laterality Modality Chest Other us Hilton Lindquist MD CT ORDERABLES Final Result from Last [address] [address] [address] [employer] [id number] Care Teams Forensic Chemist Relationship Specialty Start Date End Date Barbara Mcdonald MD PCP - General Internal Medicine 06/10/24
--- OUTSIDE RECORDS SUMMARY | 2024-10-29 16:14 | XMS_ITS | Encounter Summary ---
Author Organization [facility] Address [address] [place] [address] Care Team Providers Care Food And Beverage Checker Name Role Phone Barbara Mcdonald MD Primary Care Provider Reason for Referral * CT Scan (Routine) - Pending Review Specialty Diagnoses / Procedures Referred By Shari t Referred To Contact Diagnoses Malignant neoplasm of upper lobe of left lung (CMS/HCC) Procedures CT CHEST W CONTRAST Hilton Lindquist MD [address] [place] [address] Phone: tel: fax: [place] [phone] Referral ID Status Reason Start Date Expiration Date Visits Requested Visits Authorized [id number] Pending Review [facility] CTS 10/29/2024 11/29/2025 1 1 Reason for Visit * Reason Comments Cancer Follow Up Encounter Details Date Type Department Care Team (Late st Contact Info) Description 10/29/2024 2:30 PM CDT Office Visit [facility] Oncology and Hematology [place] [address] [address] [facility] [address] [place] [address] Hilton Lindquist MD [address] [place] [address] Malignant neoplasm of upper lobe of left lung (CMS/HCC) (Primary Dx) Social History Tobacco Use Types Packs/Day Years [...] on file Sexual Orientation Not on file documented as of this encounter Last Filed Vital Signs Vital Sign Reading Time Taken Comments Blood Pressure 99/65 10/29/2024 2:44 PM CDT Pulse 86 10/29/2024 2:44 PM CDT Temperature 36.7 C (98 F) 10/29/2024 2:44 PM CDT Respiratory Rate 15 10/29/2024 2:44 PM CDT Oxygen Saturation 97% 10/29/2024 2:44 PM CDT Inhaled Oxygen Concentration - - Weight 57.2 kg (126 lb) 10/29/2024 2:44 PM CDT Height - - Body Mass Index 18.08 06/29/2024 2:38 PM FORENSICS ANALYST documented in this encounter Progress Notes * Hilton Lindquist MD - 10/29/2024 3:14 PM CDT HEMATOLOGY / ONCOLOGY PROGRESS NOTE Patient Identification: Name: Prosper Dodson Age: 59 y.o. Sex: male : 1965 DIAGNOSIS T1 N0 M0 stage IA non-small cell lung cancer status post transbronchial biopsy done on May 18, 2024 showed adenocarcinoma. CURRENT TREATMENT Surveillance TREATMENT HISTORY SBRT treatment x 5 completed August 06, 2025 to the left upper lobe lung mass. SUBJECTIVE Patient came to the office for follow-up visit after the CT scan. He has some mild tiredness and fatigue. Complain of shortness of breath. No chest pain. Weight and appetite stable. No other new complaints. Review of system Constitutional: Patient did not mention fevers, sweats, complain of tiredness and fatigue HEENT: Patient did not mention sinus congestion, hearing or vision problems Respiratory: Patient did not mention cough, dyspnea, wheeze Cardiovascular: Patient did not mention chest pain, exertional chest pressure/discomfort, nausea, syncope, complain of shortness of breath GI: Patient did not mention constipation, diarrhea, dsyphagia, reflux symptoms, vomiting, melena : Patient did not mention dysuria, frequency, incontinence, urgency Integumentary system: no lymphadenopathy, sweats, flushing Musculoskeletal: Patient not mention: myalgia, arthralgia Neurological: Patient did not mention blurry or disturbed vision, numbness/weakness, dizziness Skin: No lumps, bumps or rashes. 12 point review of system was reviewed Objective: Vital signs in last 24 hours: As per nursing note Exam: General appearance: alert, cooperative, no distress, appears stated age Head: normocephalic, without obvious abnormality, atraumatic Eyes: conjunctivae/corneas clear, EOM's intact Ears: normal external ear canals AU Nose: Nares normal. Septum midline. Mucosa normal. No drainage or sinus tenderness Throat: Lips, mucosa, and tongue normal. Teeth and gums normal Neck: supple, symmetrical, trachea midline. Lungs: clear to auscultation bilaterally Heart: regular rate and rhythm, S1, S2 normal, no murmur, click, rub or gallop Abdomen: soft, non-tender. Bowel sounds normal. No masses, No organomegaly Extremities: extremities normal, atraumatic, no cyanosis or edema Skin: Skin color, texture, turgor normal. No rashes or lesions Lymph nodes: No lymphadenopathy Neuro: No obvious focal deficit Exam as above PATH LABS Labs from October 29 showed creatinine 1.2 hemoglobin 15 WBC 8.5 platelet 229,000 @IMAGEIMP@ Assessment: Plan: Patient Active Problem List Diagnosis Date Noted Primary malignant neoplasm of left upper lobe of lung (CMS/HCC) 07/12/2024 Chronic obstructive pulmonary disease (CMS/HCC) 03/30/2024 Aortic valve regurgitation 02/17/2024 Ascending aorta dilatation 02/17/2024 Transient ischemic attack 02/17/2024 Calculus of kidney 08/29/2020 Tobacco dependence syndrome 08/29/2020 T1 N0 M0 stage IA non-small cell lung cancer status post transbronchial biopsy done on May 18, 2024 showed adenocarcinoma. Status post SBRT treatment to the left upper lobe lung mass completed August 06, 2024. CT scan chest done on October 20, 2024 showed 2 nodules seen in the left lung apical region and in thelower lobe inferiorly with emphysematous changes. I will repeat CT chest in 3 months and follow-up in 3 months. Hypertension. Stable on. COPD. Stable on albuterol inhaler. I recommended smoking cessation. ? TOBACCO COUNSELING He was counseled to discontinue tobacco/nicotine use. 10/29/2024 Hilton Lindquist MD documented in this encounter Plan of Treatment Upcoming Encounters Date Type Department Care Team (Late st Contact Info) Description 02/03/2025 3:30 PM CDT Office Visit [facility] Oncology and Hematology [facility] [address] [facility] [address] [place] [id number] Hilton Lindquist MD [address] [place] [address] Scheduled Orders Name Type Priority Associated Diagnoses Orde r Schedule CBC WITH DIFFERENTIAL Lab Stat Malignant neoplasm of upper lobe of left lung (CMS/HCC) Expected: 01/21/2025, Expires: 10/29/2025 COMPREHENSIVE METABOLIC PANEL Lab Stat Malignant neoplasm of upper lobe of left lung (CMS/HCC) Expected: 01/21/2025, Expires: 10/29/2025 CT CHEST W CONTRAST Imaging Routine Malignant neoplasm of upper lobe of left lung (CMS/HCC) Expected: 01/29/2025, Expires: 10/29/2025 documented as of this encounter Visit Diagnoses Diagnosis Malignant neoplasm of upper lobe of left lung (CMS/HCC)- Primary documented in this encounter Care Teams Food And Beverage Checker Relationship Specialty Start Date End Date Barbara Mcdonald MD PCP - General Internal Medicine 06/10/24 documented as of this encounter
--- OUTSIDE RECORDS SUMMARY | 2024-10-29 16:14 | XMS_ITS | Clinical Summary ---
Author Organization [facility] Address [address] [place] [address] Care Team Providers Care Accountant Supervisor Name Role Phone Barbara Mcdonald MD Primary Care Provider Source Comments [facility],non-owned Affiliates and Associated Physician Practices is amultiple site organization consisting of ambulatory clinics and hospital sitesin [place], [place], [place] and [place]. This disclosure is being madepursuant to the Care Everywhere program and may not contain all information available regarding this patient. Last updated 18.[facility] Allergies No known active allergies Medications * Be aware that medications may not be up to date on this document. Alwaysverify current medications with the patient. Medication Sig Dispensed Refills Start Date End Date Status NIFEdipine CR osmotic 24hr (Procardia-XL) 30 MG tablet Take 1 (one) tablet by mouth once daily 03/30/2024 Active clopidogrel (plaVIX) 75 MG tablet Take 1 (one) tablet by mouth once daily Active Breztri Aerosphere 160-9-4.8 MCG/ACT inhaler Inhale 2 (two) puffs by mouth 2 times daily 04/27/2024 Active aspirin (Aspirin) 81 MG chew tablet Chew 1 tablet every day by oral route. Active albuterol HFA (Proventil; Ventolin; Proair) 108 (90 Base) MCG/ACT inhaler Take 1 (one) puff by mouth every 4 hours as needed Active Social History Tobacco Use Types Packs/Day Years [...] Mass Index 18.18 05/18/2024 11:03 AM CDT Plan of Treatment Health Maintenance Due Date Last Done Comments COLOGUARD (AGES 45-75) - COL ON CA SCREENING 1965 COLON MONITORING 1965 COLONOSCOPY - COLON CA SCREENING 1965 CT COLONOGRAPHY - COLON CA SCREENING 1965 Colorectal Cancer Screening 1965 FIT - COLON CA SCREENING 1965 FLEX SIG - COLON CA SCREENING 1965 LIPID TESTING 1965 HIV SCREENING 1978 HEPATITIS C SCREENING 05/26/1981 DTAP/TDAP/TD VACCINES (1 - Tdap) 1982 PNEUMOCOCCAL VACCINE 50+ (1 of 2 - PCV) 1982 ZOSTER VACCINE (1 of 2) 2013 Respiratory Syncytial Virus (RSV) Vaccine Pt: or over 60 yrs (1 - Risk 60-74 years 1-dose series) 2023 COVID-19 VACCINE (1 - 2023-2 5 season) 2024 DEPRESSION SCREENING 08/19/2024 INFLUENZA VACCINE Completed 06/04/2024 HEPATITIS B VACCINE Aged Out No longe r eligible based on patient's age to complete this topic HIB VACCINE Aged Out No longer eligi ble based on patient's age to complete this topic HPV VACCINE Aged Out No longer eligi ble based on patient's age to complete this topic MENINGOCOCCAL (Group B) VACC INE SHARED DECISION-MAKING Aged Out No longer eligibl e based on patient's age to complete this topic MENINGOCOCCAL GROUPS A/C/Y/W VACCINE Aged Out No longer eligible b ased on patient's age to complete this topic Care Teams Accountant Supervisor Relationship Specialty Start Date End Date Barbara Mcdonald MD [address] [facility] [address] [place] [address] PCP - General Internal Medicine 04/29/24
--- OUTSIDE RECORDS SUMMARY | 2024-10-29 16:14 | XMS_ITS | Referral Summary ---
Author Organization [facility] Address [address] [place] [address] Care Team Providers Care Oil Pipeline Dispatcher Name Role Phone Barbara Mcdonald MD Primary Care Provider Source Comments [facility],non-owned Affiliates and Associated Physician Practices is amultiple site organization consisting of ambulatory clinics and hospital sitesin [place], [place], [place] and [place]. This disclosure is being madepursuant to the Care Everywhere program and may not contain all information available regarding this patient. Last updated 18.[facility] Allergies No known active allergies Medications * [...] 05/18/2024 11:03 AM CDT Plan of Treatment Not on file Care Teams Oil Pipeline Dispatcher Relationship Specialty Start Date End Date Barbara Mcdonald MD [address] [facility] [address] [place] [address] PCP - General Internal Medicine 04/29/24
--- OUTSIDE RECORDS SUMMARY | 2024-10-29 16:14 | XMS_ITS | Data Portability ---
Author Organization [place] [facility] [employer], Main Office Address [address] [place] [address] Care Team Providers Care Complementary Health Therapists Name Role Phone BARBARA MCDONALD Primary Care Provider BARBARA MCDONALD Referring Provider PAUL URENA Surveying Teacher JINA COREAS Zipper Slide Attacher [facility] WELLS Faculty Dean Assessment Encounter Date Assessment Date Assessment LastModified by Organization Details LastModified Time 06/04/2024 06/04/2024 06/02/2024: PSA 4.72 LDL 100 K 5.3, Ca 10.2 (calculated) [email or web address] Not available 06/12/2024 23:55:06 10/13/2024 10/13/2024 Assessment: Multiple environmental allergies High IgE Nicotine smoke: 2 ppd since 1997 = 54 pack years 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 Shon Ogden thoracic surgery note 05/11/[address] Elly Rosario for robotic EBUS and biopsy Dr. Elly Rosario note 05/18/24 robotic bronchoscopy with cryobiopsy x7 and FNA x1 of JEAN MARIE nodule and cryobiopsy x8 of apical JEAN MARIE nodule -> JEAN MARIE T1N0M0 stage 1A adenocarcinoma Dr. Isaac Ivory thoracic surgery note 06/29/24 large ascending aortic aneurysm, severe AI, low lung function and DLCO -> poor operative candidate. Dr. Hilton Lindquist note 07/10/24 refer to radiation oncology as patient is not a surgical candidate Follow up with Dr. Hilton Lindquist as scheduled on October 29 and November 10. Nicotine cessation counseling provided. Strayhorn for quitting nicotine include getting ready, getting support and encouragement, learning new skills and behaviors and being prepared to handle slips. Tips for dealing with cravings provided. Prevention of subsequent illnesses from nicotine addiction discussed. Comorbidities include but are not limited to hypertension, cerebrovascular disease, coronary heart disease, congestive heart failure, hyperlipidemia, COPD/asthma, peptic ulcer disease, esophagitis/gastri tis, and osteoporosis. Therapy options offered include: Quitting by total abstinence Receiving nicotine replacement therapy Undergoing hypnosis Filling a bupropion or varenicline prescription Enrolling in Quit For Life program Registering at [email or web address] Making a call to 7-093-LPLF-NOW ( ). A strong, clear, personalized message was given to the patient to quit smoking. The patient was urged to set a quit date. We discussed patient's barriers to quitting and I will be of assistance when patient is ready to quit. I encouraged patient to inform friends and family of plans to quit with a request for support. I encouraged the patient to remove all cigarettes from the environment. We reviewed any previous quit attempts and lessons learned from them. I encouraged total abstinence from smoking and advised the patient that drinking alcohol and/or associating with other smokers are associated with failure or relapse. Patient can enroll in [facility]'s smoking cessation class through America Velásquez RN at . Enrollment is free and classes are held every saturday of the month from 1:30 pm to 2:30 pm at the conference room next to the cafeteria on the ground floor. General information on COPD was covered. COPD affects breathing. Self-care skills such as not smoking, using medications as prescribed, oxygen therapy, and knowing when to contact the healthcare provider are covered. Diaphragmatic breathing and pursed lip breathing are explained and demonstrated. Positive lifestyle changes are introduced. Following these self-care skills will help in the management of COPD so the patient can stay out of the hospital. Continue Albuterol HFA as needed. Continue Breztri 160/9/4.8 mcg 2 puffs BID. Gargle after use. The patient does not know how to accurately administer the inhalers. Today, the patient was shown how to take these medications. The proper technique for delivering these medications was instructed. The patient expressed a clear understanding and demonstrated back how to use these medications. Without the proper technique, the patient will not reap the benefits of these medications as the contents will not reach the lower airways as intended to be. Adherence to therapy is advocated. Nonadherence may lead to treatment failure, further progression of the condition, and other complications. Hospitals admissions are often the result of individuals not taking prescription medications accurately. Alternatively, greater adherence to medication regimens have shown to lower rates of hospitalization and decrease total medical costs in patients with chronic medical conditions. Advocated influenza vaccination annually and pneumonia vaccination ASTRID. Encouraged patient to adjust caloric intake to maintain/achieve ideal body weight, emphasizing on fruits, vegetables, whole grains, and fat-free or low-fat products. These include lean meats, poultry, fish, beans, eggs, and nuts and foods that are low in saturated fats, trans-fats, cholesterol, salt (sodium), and glycemic index. Stressed the importance of regular exercise up to the patient's capacity limits. In this case, we [email or web address] min daily walking, 2 days a week of resistance training. Patient to monitor BP daily and bring records to PCP for further management. Follow-up: 6 months, March 2025 Not available 10/13/2024 15:20:33 10/13/2024 10/13/2024 06/02/2024: PSA 4.72 LDL 100 K 5.3, Ca 10.2 (calculated) 06/19/2024: LDL 112 HCT 50.4 45 minutes spent with the patient, personally called and spoke with oncology, labs provided, medication prescribed [email or web address] Not available 10/13/2024 12:01:07 Plan of Treatment Reminders Order Date Submit Date Provider Last Modified By Organization Details Last Modified Time Details Appointments Any 15 2024 09:30A M Barbara carrasco MD Not available Not available Not available Follow Up 2024 08:00A Satish Urena MD Not available Not available Not available Lab CMP, serum or plasma [address] (Lab), [address] [place], [address], 10/15/2024 10:04:14 lipid panel, serum [address] (Lab), [address] [place], [address], 10/15/2024 10:04:14 CBC w/ auto diff [address] (Lab), [address] [place], [address], 10/15/2024 10:04:14 TSH, serum or plasma [address] (Lab), [address] [place], [address], 10/15/2024 10:04:14 potassium , serum or plasma [email or web address] (Lab), [address] [place], [address], 06/11/2024 09:20:22 CMP, serum or plasma 2023 024 [facility] (Lab), [address] [place], [address], 06/19/2024 16:41:25 lipid panel, serum 2023 024 [facility] (Lab), [address] [place], [address], 06/19/2024 16:41:29 CBC w/ auto diff 2023 024 [facility] (Lab), [address] [place], [address], 06/19/2024 16:36:22 TSH, serum or plasma 2023 024 [facility] (Lab), [address] [place], [address], 06/19/2024 17:11:19 PSA, total, serum or plasma 2023 024 [facility] (Lab), [address] [place], [address], 06/02/2024 18:43:52 CMP, serum or plasma 2023 024 [facility] (Lab), [address] [place], [address], 06/02/2024 18:08:50 lipid panel, serum 2023 024 [facility] (Lab), [address] [place], [address], 06/02/2024 18:08:54 CBC w/ auto diff 2023 024 [facility] (Lab), [address] [place], [address], 06/02/2024 17:50:24 TSH, serum or plasma 2023 024 [facility] (Lab), [address] [place], [address], 06/02/2024 18:43:47 Referral pulmonolo gist referral 2024 025 [email or web address] Paul Urean MD, [address] [place], [address], 10/13/2024 17:46:32 urologist referral - Please call patient to schedule an appointme nt. Thank you. 2024 025 [email or web address], [address], [address], [place], [address], 10/29/2024 13:35:28 hematolog ist/oncol ogist referral - Please call patient to schedule an appointme nt. Thank you. 2024 025 KEATON Lindquist MD, [address], [place], [address], 10/13/2024 18:45:23 cardiolog ist referral 2024 025 [email or web address] Nhi Wells, [address], [address], [place], [address], 10/14/2024 09:56:30 pulmonolo gist referral 2023 024 [email or web address] Paul Urena MD, [address] [place], [address], 06/04/2024 18:39:49 urologist referral 2023 024 TROY Arnold, [address] [facility], [facility] [place], [address], 06/19/2024 15:55:24 hematolog ist/oncol ogist referral 2023 024 [email or web address] Hilton Lindquist MD, [address], [place], [address], 07/02/2024 16:01:23 cardiolog ist referral 2023 024 [email or web address] Nhi Wells, [address], [address], [address], 06/04/2024 18:39:22 hematolog ist/oncol ogist referral 2023 024 [email or web address] Hilton Lindquist MD, [address], [place], [address], 05/05/2024 09:14:45 cardiolog ist referral 2023 024 [email or web address] Nhi Wells, [address] [facility], [address], [place], [address], 05/05/2024 09:15:36 pulmonolo gist referral 2023 024 [email or web address] Paul Urena MD, [address] [place], [address], 05/05/2024 09:15:21 Procedures colonosco py screening (PROC) - Please call patient to schedule an appointme nt. Thank you. 2024 025 [facility], [address] [facility] [address], [place], [address], 10/14/2024 11:20:31 colonosco py screening (PROC) - Please call patient to schedule. 2023 024 [email or web address] Jina Coreas MD, [address] [facility], [address], [place], [address], 06/04/2024 18:36:40 colonosco py screening (PROC) - Please call patient to schedule. 2023 024 Jina Coreas MD, [address] [facility], [facility] [address], [place], [address], 06/08/2024 15:37:57 Surgeries None recorded. Imaging US, bladder 2023 024 [email or web address] [facility] [place], [address] [facility], [address], [place], [address], 06/19/2024 15:58:09 Medication Orders albuterol sulfate HFA 90 mcg/actua tion aerosol inhaler [address] [facility] #[id number], [address] [place], [place], [id number], 10/13/2024 15:02:43 Breztri Aerospher e 160 mcg-9mcg- 4.8mcg/ac tuation HFA aerosol inhaler [address] [facility] #48433, [address] [place], [place], [id number], 10/13/2024 15:02:42 ondansetr on 4 mg disintegr ating tablet [address] [facility] #46418, [address] [place], [place], [id number], 10/13/2024 11:57:21 nifedipin e ER 30 mg tablet,ex tended release [address] [facility] #81231, [address] [place], [place], [id number], 10/13/2024 11:57:21 ciproflox acin 500 mg tablet [address] [facility] #30981, [address] [place], [place], [id number], 10/13/2024 11:15:11 tamsulosi n 0.4 mg capsule [address] [facility] #14567, [address] [place], [place], [id number], 06/19/2024 15:41:41 alprazola m 1 mg tablet [address] [facility] #83883, [address] [place], [place], [id number], 10/13/2024 11:15:55 Breztri Aerospher e 160 mcg-9mcg- 4.8mcg/ac tuation HFA aerosol inhaler 2023 024 [facility] #[id number], [address] [place], [place], [id number], 06/04/2024 15:06:52 Patient TargetsNo targets recorded. Patient Instructions Encounter Date Encounter Id Patient Instructions Last Modified By Organization Details Last Modified Time 06/19/2024 [id number] 1. The patient will be scheduled in the office for transrectal ultrasound with ultrasound-guided biopsy of the prostate under just local. if the patient needs alprazolam I will have to send him in another time when my VIP is working if so it will just be 1 mg they will bring to the office but he does not necessarily have to have the alprazolam 2. I will still send a prescription for Cipro 3. I will also still go ahead and give him possible Ancef on the day of his procedure if his transperineal [email or web address] Not available 07/08/2024 17:41:29 10/13/2024 [id number] complete PFT w/ post bronchodilator spirometry* Not available 10/13/2024 15:02:37 Reason for Referral Surveying Teacher Referral for C hronic obstructive pulmonary disease Referring Physician: Barbara Mcdonald Internal [facility], Encounter Date: 04/30/2024 Faculty Dean Referral for Es sential hypertension Referring Physician: Barbara Mcdonald Internal Medicine, Encounter Date: 04/30/2024 Referring Physician: Barbara Mcdonald [facility], Encounter Date: 04/30/2024 Surveying Teacher Referral for C hronic obstructive pulmonary disease Referring Physician: Barbara Mcdonald Internal [facility], Encounter Date: 06/04/2024 Faculty Dean Referral for Es sential hypertension Referring Physician: Barbara Mcdonald Internal Medicine, Encounter Date: 06/04/2024 Referring Physician: Barbara Mcdonald Internal [facility], Encounter Date: 06/04/2024 Urologist Referral for Prost ate specific antigen above reference range Referring Physician: Barbara Mcdonald Internal Medicine, Encounter Date: 06/04/2024 Surveying Teacher Referral for C hronic obstructive pulmonary disease Referring Physician: Barbara Mcdonald Internal [facility], Encounter Date: 10/13/2024 Faculty Dean Referral for Es sential hypertension Referring Physician: Barbara Mcdonald Internal Medicine, Encounter Date: 10/13/2024 Urologist Referral for Prost ate specific antigen above reference range Please call patient to schedule an appointment. Thank you. Referring Physician: Barbara Mcdonald Internal Medicine, Encounter Date: 10/13/2024 Please call patient to sched ule an appointment. Thank you. Referring Physician: Barbara Mcdonald Internal Medicine, Encounter Date: 10/13/2024 Results Created Date Observation Date Name Description Value Unit Range Abnormal Flag Note LastModifiedBy Organization Detail LastModifiedTime 06/02/2006/02/2024 CBC/C OMPLE TE BLD COUNT W/DIF F white blood cells 7.6 x10'3 /uL 4.2-10 .8 Not Available [facility] (Lab) [address] [place], [address], 06/02/2024 17:50:24 06/02/2006/02/2024 CBC/C OMPLE TE BLD COUNT W/DIF F red blood cells 4.97 x10'6 /uL 4.10-5 .80 Not Available [facility] (Lab) [address] [place], [address], 06/02/2024 17:50:24 06/02/20 24 06/02/2024 CBC/C OMPLE TE BLD COUNT W/DIF F hemoglobin 15.8 g/dL 13.2-1 7.0 Not Available [facility] (Lab) [address] [place], [address], 06/02/2024 17:50:24 06/02/2006/02/2024 CBC/C OMPLE TE BLD COUNT W/DIF F hematocrit 46.6 % 39.3-5 0.0 Not Available [facility] (Lab) [address] [place], [address], 06/02/2024 17:50:24 06/02/2006/02/2024 CBC/C OMPLE TE BLD COUNT W/DIF F mean red cell volume 93.8 fL 80.0-9 7.0 Not Available [facility] (Lab) [address] [place], [address], 06/02/2024 17:50:24 06/02/2006/02/2024 CBC/C OMPLE TE BLD COUNT W/DIF F mean red cell hemoglobin 31.8 pg 27.0-3 3.0 Not Available [facility] (Lab) [address] [place], [address], 06/02/2024 17:50:24 06/02/20 24 06/02/2024 CBC/C OMPLE TE BLD COUNT W/DIF F mean RBC HGB concentratio n 33.9 g/dL 31.0-3 6.0 Not Available [facility] (Lab) [address] [place], [address], 06/02/2024 17:50:24 06/02/20 24 06/02/2024 CBC/C OMPLE TE BLD COUNT W/DIF F red cell distribution width 13.2 % 11.8-1 5.5 Not Available [facility] (Lab) [address] [place], [address], 06/02/2024 17:50:24 06/02/20 24 06/02/2024 CBC/C OMPLE TE BLD COUNT W/DIF F platelets 219 x10'3 /uL 150-40 0 Not Available [facility] (Lab) [address] [place], [address], 06/02/2024 17:50:24 06/02/2006/02/2024 CBC/C OMPLE TE BLD COUNT W/DIF F mean platelet volume 8.9 fL 9.0-12 .4 low Not Available [facility] (Lab) [address] [place], [address], 06/02/2024 17:50:24 06/02/2006/02/2024 CBC/C OMPLE TE BLD COUNT W/DIF F neutrophils 63.9 % 39.0-7 2.0 Not Available [facility] (Lab) [address] [place], [address], 06/02/2024 17:50:24 06/02/2006/02/2024 CBC/C OMPLE TE BLD COUNT W/DIF F lymphocytes 23.7 % 16.0-4 7.0 Not Available [facility] (Lab) [address] [place], [address], 06/02/2024 17:50:24 06/02/20 24 06/02/2024 CBC/C OMPLE TE BLD COUNT W/DIF F monocytes 8.7 % 5.0-12 .0 Not Available [facility] (Lab) [address] [place], [address], 06/02/2024 17:50:24 06/02/2006/02/2024 CBC/C OMPLE TE BLD COUNT W/DIF F eosinophils 2.5 % 1.0-7. 0 Not Available [facility] (Lab) [address] [place], [address], 06/02/2024 17:50:24 06/02/20 24 06/02/2024 CBC/C OMPLE TE BLD COUNT W/DIF F basophils 0.7 % 0.0-2. 0 Not Available [facility] (Lab) [address] [place], [address], 06/02/2024 17:50:24 06/02/2006/02/2024 CBC/C OMPLE TE BLD COUNT W/DIF F immature granulocytes 0.5 % 0.00-0 .50 Not Available [facility] (Lab) [address] [place], [address], 06/02/2024 17:50:24 06/02/2006/02/2024 CBC/C OMPLE TE BLD COUNT W/DIF F neutrophils, absolute count 4.82 x10'3 /uL 1.5-8. 0 Not Available [facility] (Lab) [address] [place], [address], 06/02/2024 17:50:24 06/02/2006/02/2024 CBC/C OMPLE TE BLD COUNT W/DIF F lymphocytes, absolute count 1.79 x10'3 /uL 1.07-3 .43 Not Available [facility] (Lab) [address] [place], [address], 06/02/2024 17:50:24 06/02/20 24 06/02/2024 CBC/C OMPLE TE BLD COUNT W/DIF F monocytes, absolute count 0.66 x10'3 /uL 0.29-0 .99 Not Available [facility] (Lab) [address] [place], [address], 06/02/2024 17:50:24 06/02/2006/02/2024 CBC/C OMPLE TE BLD COUNT W/DIF F eosinophils, absolute count 0.19 x10'3 /uL 0.02-0 .53 Not Available [facility] (Lab) [address] [place], [address], 06/02/2024 17:50:24 06/02/20 24 06/02/2024 CBC/C OMPLE TE BLD COUNT W/DIF F basophils, absolute count 0.05 x10'3 /uL 0.01-0 .08 Not Available [facility] (Lab) [address] [place], [address], 06/02/2024 17:50:24 06/02/20 24 06/02/2024 CBC/C OMPLE TE BLD COUNT W/DIF F immature granulocytes ,absolute 0.04 x10'3 /uL 0.00-0 .05 Not Available [facility] (Lab) [address] [place], [address], 06/02/2024 17:50:24 06/02/20 24 06/02/2024 CBC/C OMPLE TE BLD COUNT W/DIF F nucleated red blood cells 0.0 % -0 Not Available [facility] (Lab) [address] [place], [address], 06/02/2024 17:50:24 06/02/20 24 06/02/2024 CBC/C OMPLE TE BLD COUNT W/DIF F NRBC# 0.00 x10'3 /uL Not Available [facility] (Lab) [address] [place], [address], 06/02/2024 17:50:24 06/02/2006/02/2024 COMPR EHENS RISHI METAB OLIC PANEL sodium 140 mmol/ L 137-14 5 Not Available [facility] (Lab) [address] [place], [address], 06/02/2024 18:08:50 06/02/2006/02/2024 COMPR EHENS RISHI METAB OLIC PANEL potassium 5.3 mmol/ L 3.5-5. 1 high Not Available [facility] (Lab) [address] [place], [address], 06/02/2024 18:08:50 06/02/20 24 06/02/2024 COMPR EHENS RISHI METAB OLIC PANEL chloride 105 mmol/ L 98-107 Not Available [facility] (Lab) [address] [place], [address], 06/02/2024 18:08:50 06/02/20 24 06/02/2024 COMPR EHENS RISHI METAB OLIC PANEL carbon dioxide 29 mmol/ L 22-30 Not Available [facility] (Lab) [address] [place], [address], 06/02/2024 18:08:50 06/02/20 24 06/02/2024 COMPR EHENS RISHI METAB OLIC PANEL anion gap 11.3 mmol/ L 14-22 low Not Available [facility] (Lab) [address] [place], [address], 06/02/2024 18:08:50 06/02/20 24 06/02/2024 COMPR EHENS RISHI METAB OLIC PANEL glucose 82 mg/dL 70-99 Not Available [facility] (Lab) [address] [place], [address], 06/02/2024 18:08:50 06/02/20 24 06/02/2024 COMPR EHENS RISHI METAB OLIC PANEL BUN 8 mg/dL 8-19 Not Available [facility] (Lab) [address] [place], [address], 06/02/2024 18:08:50 06/02/20 24 06/02/2024 COMPR EHENS RSIHI METAB OLIC PANEL creatinine 1.06 mg/dL 0.66-1 .25 Not Available [facility] (Lab) [address] [place], [address], 06/02/2024 18:08:50 06/02/20 24 06/02/2024 COMPR EHENS RISIH METAB OLIC PANEL GFR >60 Refer ence Range : [place] ge GFR Healt hy Adult : >60 mL/mi n/1.7 3 m2 Chron ic Kidne y Disea se: 15-60 mL/mi n/1.7 3 m2 Kidne y Failu re: <15/m L/min /1.73 m2 www.n iddk. nih.g ov The MDRD study equat ion has not been valid ated in child shanna <18 years of age; pregn ant women ; the elder ly >85 years of age; or in some racia l or ethni c subgr oups, such as Hispa nics. Outsi de the valid ated florencio eters , estim ated GFR is less accur ate, requi ring clini stanley judgm ent on a case- by-ca se basis . Clini stanley inter preta tion for other races and ages must be made by the clini adelia. The MDRD study equat ion has not been valid ated for the evalu ation of serum creat inine relat ed to nutri mita l statu s or medic ation usage . For perso ns <18 years of age, a pedia tric GFR calcu lator is avail able on the [facility] websi te: https ://alicia w.tru rayo.o rg/pr ofess ional s/kdo qi/gf r_cal culat or Not Available [facility] (Lab) [address] [place], [address], 06/02/2024 18:08:50 06/02/20 24 06/02/2024 COMPR EHENS RISHI METAB OLIC PANEL alkaline phosphatase 101 U/L 38-126 Not Available [facility] (Lab) [address] [place], [address], 06/02/2024 18:08:50 06/02/20 24 06/02/2024 COMPR EHENS RISHI METAB OLIC PANEL alanine aminotransfe rase 20 U/L 0-50 Not Available [facility] (Lab) [address] [place], [address], 06/02/2024 18:08:50 06/02/20 24 06/02/2024 COMPR EHENS RISHI METAB OLIC PANEL aspartate aminotransfe rase 28 U/L 15-46 Not Available [facility] (Lab) [address] [place], [address], 06/02/2024 18:08:50 06/02/20 24 06/02/2024 COMPR EHENS RISHI METAB OLIC PANEL bilirubin, total 1.10 mg/dL 0.20-1 .30 Not Available [facility] (Lab) [address] [place], [address], 06/02/2024 18:08:50 06/02/20 24 06/02/2024 COMPR EHENS RISHI METAB OLIC PANEL calcium 10.3 mg/dL 8.4-10 .2 high Not Available [facility] (Lab) [address] [place], [address], 06/02/2024 18:08:50 06/02/20 24 06/02/2024 COMPR EHENS RISHI METAB OLIC PANEL total protein 7.0 g/dL 6.3-8. 2 Not Available [facility] (Lab) [address] [place], [address], 06/02/2024 18:08:50 06/02/20 24 06/02/2024 COMPR EHENS RISHI METAB OLIC PANEL albumin 4.1 g/dL 3.4-5. 0 Not Available [facility] (Lab) [address] [place], [address], 06/02/2024 18:08:50 06/02/20 24 06/02/2024 COMPR EHENS RISHI METAB OLIC PANEL globulin 2.9 g/dL 2.6-4. 2 Not Available [facility] (Lab) [address] [place], [address], 06/02/2024 18:08:50 06/02/20 24 06/02/2024 COMPR EHENS RISHI METAB OLIC PANEL A/G ratio 1.4 ratio 1.0-2. 0 Not Available [facility] (Lab) [address] [place], [address], 06/02/2024 18:08:50 06/02/2006/02/2024 LIPID PANEL cholesterol 165 mg/dL 140-19 9 NIH UGDELIA NSUS RECOM MENDA TION FOR ELKE STERO L: ADULT CHILD LOW RISK: <200 <170 BORDE RLINE : <200- 239 ----- HIGH RISK: >240 >200 Not Available [facility] (Lab) [address] [place], [address], 06/02/2024 18:08:54 06/02/2006/02/2024 LIPID PANEL triglyceride s 112 mg/dL 0-150 NIH GUDELIA NSUS REPOR T RECOM MENDA TION FOR TRIGL YCERI KARIS: ADULT CHILD LOW RISK: <150 ----- BODER LINE: 150-1 99 ----- HIGH RISK: >200 ----- Not Available [facility] (Lab) [address] [place], [address], 06/02/2024 18:08:54 06/02/2006/02/2024 LIPID PANEL HDL cholesterol 43 mg/dL 40- Not Available [facility] (Lab) [address] [place], [address], 06/02/2024 18:08:54 06/02/2006/02/2024 LIPID PANEL LDL cholesterol, calculated 100 mg/dL 0-130 NIH GUDELIA NSUS REPOR T RECOM MENDA TIONS FOR LDL: ADULT CHILD LOW RISK <130 <110 (OPTI MAL LDL) <100 ----- BORDE RLINE : 130-1 59 ----- HIGH RISK: >160 >130 A TRIGL YCERI DE RESUL T >400 INVAL IDATE S THE CALCU LATIO N FOR LDL FRACT IONAT ION - THE LDL RESUL T WILL NOT BE REPOR VÍCTOR. Not Available [facility] (Lab) [address] [place], [address], 06/02/2024 18:08:54 06/02/20 24 06/02/2024 TSH W/REF MAGGIE FT4 TSH with reflex free T4 0.863 uIU/m L 0.465- 4.680 Not Available [facility] (Lab) [address] [place], [address], 06/02/2024 18:43:47 06/02/20 24 06/02/2024 PSA SCREE N PSA medicare screen 4.72 NG/mL 0.00-4 .00 high Not Available [facility] (Lab) [address] [place], [address], 06/02/2024 18:43:52 06/19/20 24 06/19/2024 CBC/C OMPLE TE BLD COUNT W/DIF F white blood cells 7.9 x10'3 /uL 4.2-10 .8 Not Available [facility] (Lab) [address] [place], [address], 06/19/2024 16:36:22 06/19/20 24 06/19/2024 CBC/C OMPLE TE BLD COUNT W/DIF F red blood cells 5.20 x10'6 /uL 4.10-5 .80 Not Available [facility] (Lab) [address] [place], [address], 06/19/2024 16:36:22 06/19/20 24 06/19/2024 CBC/C OMPLE TE BLD COUNT W/DIF F hemoglobin 16.7 g/dL 13.2-1 7.0 Not Available [facility] (Lab) [address] [place], [address], 06/19/2024 16:36:22 06/19/20 24 06/19/2024 CBC/C OMPLE TE BLD COUNT W/DIF F hematocrit 50.4 % 39.3-5 0.0 high Not Available [facility] (Lab) [address] [place], [address], 06/19/2024 16:36:22 06/19/20 24 06/19/2024 CBC/C OMPLE TE BLD COUNT W/DIF F mean red cell volume 96.9 fL 80.0-9 7.0 Not Available [facility] (Lab) [address] [place], [address], 06/19/2024 16:36:22 06/19/20 24 06/19/2024 CBC/C OMPLE TE BLD COUNT W/DIF F mean red cell hemoglobin 32.1 pg 27.0-3 3.0 Not Available [facility] (Lab) [address] [facility] [place], [address], 06/19/2024 16:36:22 06/19/20 24 06/19/2024 CBC/C OMPLE TE BLD COUNT W/DIF F mean RBC HGB concentratio n 33.1 g/dL 31.0-3 6.0 Not Available [facility] (Lab) [address] [place], [address], 06/19/2024 16:36:22 06/19/20 24 06/19/2024 CBC/C OMPLE TE BLD COUNT W/DIF F red cell distribution width 13.2 % 11.8-1 5.5 Not Available [facility] (Lab) [address] [place], [address], 06/19/2024 16:36:22 06/19/20 24 06/19/2024 CBC/C OMPLE TE BLD COUNT W/DIF F platelets 247 x10'3 /uL 150-40 0 Not Available [facility] (Lab) [address] [place], [address], 06/19/2024 16:36:22 06/19/20 24 06/19/2024 CBC/C OMPLE TE BLD COUNT W/DIF F mean platelet volume 9.6 fL 9.0-12 .4 Not Available [facility] (Lab) [address] [place], [address], 06/19/2024 16:36:22 06/19/20 24 06/19/2024 CBC/C OMPLE TE BLD COUNT W/DIF F neutrophils 63.8 % 39.0-7 2.0 Not Available [facility] (Lab) [address] [place], [address], 06/19/2024 16:36:22 06/19/20 24 06/19/2024 CBC/C OMPLE TE BLD COUNT W/DIF F lymphocytes 20.8 % 16.0-4 7.0 Not Available [facility] (Lab) [address] [place], [address], 06/19/2024 16:36:22 06/19/20 24 06/19/2024 CBC/C OMPLE TE BLD COUNT W/DIF F monocytes 10.3 % 5.0-12 .0 Not Available [facility] (Lab) [address] [place], [address], 06/19/2024 16:36:22 06/19/20 24 06/19/2024 CBC/C OMPLE TE BLD COUNT W/DIF F eosinophils 3.6 % 1.0-7. 0 Not Available [facility] (Lab) [address] [place], [address], 06/19/2024 16:36:22 06/19/20 24 06/19/2024 CBC/C OMPLE TE BLD COUNT W/DIF F basophils 1.0 % 0.0-2. 0 Not Available [facility] (Lab) [address] [place], [address], 06/19/2024 16:36:22 06/19/20 24 06/19/2024 CBC/C OMPLE TE BLD COUNT W/DIF F immature granulocytes 0.5 % 0.00-0 .50 Not Available [facility] (Lab) [address] [place], [address], 06/19/2024 16:36:22 06/19/20 24 06/19/2024 CBC/C OMPLE TE BLD COUNT W/DIF F neutrophils, absolute count 5.02 x10'3 /uL 1.5-8. 0 Not Available [facility] (Lab) [address] [place], [address], 06/19/2024 16:36:22 06/19/20 24 06/19/2024 CBC/C OMPLE TE BLD COUNT W/DIF F lymphocytes, absolute count 1.64 x10'3 /uL 1.07-3 .43 Not Available [facility] (Lab) [address] [facility] [place], [address], 06/19/2024 16:36:22 06/19/20 24 06/19/2024 CBC/C OMPLE TE BLD COUNT W/DIF F monocytes, absolute count 0.81 x10'3 /uL 0.29-0 .99 Not Available [facility] (Lab) [address] [place], [address], 06/19/2024 16:36:22 06/19/20 24 06/19/2024 CBC/C OMPLE TE BLD COUNT W/DIF F eosinophils, absolute count 0.28 x10'3 /uL 0.02-0 .53 Not Available [facility] (Lab) [address] [place], [address], 06/19/2024 16:36:22 06/19/20 24 06/19/2024 CBC/C OMPLE TE BLD COUNT W/DIF F basophils, absolute count 0.08 x10'3 /uL 0.01-0 .08 Not Available [facility] (Lab) [address] [place], [address], 06/19/2024 16:36:22 06/19/20 24 06/19/2024 CBC/C OMPLE TE BLD COUNT W/DIF F immature granulocytes ,absolute 0.04 x10'3 /uL 0.00-0 .05 Not Available [facility] (Lab) [address] [place], [address], 06/19/2024 16:36:22 06/19/20 24 06/19/2024 CBC/C OMPLE TE BLD COUNT W/DIF F nucleated red blood cells 0.0 % -0 Not Available [facility] (Lab) [address] [place], [address], 06/19/2024 16:36:22 06/19/20 24 06/19/2024 CBC/C OMPLE TE BLD COUNT W/DIF F NRBC# 0.00 x10'3 /uL Not Available [facility] (Lab) [address] [place], [address], 06/19/2024 16:36:22 06/19/20 24 06/19/2024 COMPR EHENS RISHI METAB OLIC PANEL sodium 142 mmol/ L 137-14 5 Not Available [facility] (Lab) [address] [place], [address], 06/19/2024 16:41:25 06/19/20 24 06/19/2024 COMPR EHENS RISHI METAB OLIC PANEL potassium 5.1 mmol/ L 3.5-5. 1 Not Available [facility] (Lab) [address] [place], [address], 06/19/2024 16:41:25 06/19/20 24 06/19/2024 COMPR EHENS RISHI METAB OLIC PANEL chloride 104 mmol/ L 98-107 Not Available [facility] (Lab) [address] [place], [address], 06/19/2024 16:41:25 06/19/20 24 06/19/2024 COMPR EHENS RISHI METAB OLIC PANEL carbon dioxide 28 mmol/ L 22-30 Not Available [facility] (Lab) [address] [place], [address], 06/19/2024 16:41:25 06/19/20 24 06/19/2024 COMPR EHENS RISHI METAB OLIC PANEL anion gap 15.1 mmol/ L 14-22 Not Available [facility] (Lab) [address] [place], [address], 06/19/2024 16:41:25 06/19/20 24 06/19/2024 COMPR EHENS RISHI METAB OLIC PANEL glucose 93 mg/dL 70-99 Not Available [facility] (Lab) [address] [place], [address], 06/19/2024 16:41:25 06/19/20 24 06/19/2024 COMPR EHENS RISHI METAB OLIC PANEL BUN 12 mg/dL 8-19 Not Available [facility] (Lab) [address] [place], [address], 06/19/2024 16:41:25 06/19/20 24 06/19/2024 COMPR EHENS RISHI METAB OLIC PANEL creatinine 0.95 mg/dL 0.66-1 .25 Not Available [facility] (Lab) [address] [place], [address], 06/19/2024 16:41:25 06/19/20 24 06/19/2024 COMPR EHENS RISHI METAB OLIC PANEL GFR >60 Refer ence Range : [place] ge GFR Healt hy Adult : >60 mL/mi n/1.7 3 m2 Chron ic Kidne y Disea se: 15-60 mL/mi n/1.7 3 m2 Kidne y Failu re: <15/m L/min /1.73 m2 www.n iddk. nih.g ov The MDRD study equat ion has not been valid ated in child shanna <18 years of age; pregn ant women ; the elder ly >85 years of age; or in some racia l or ethni c subgr oups, such as Hispa nics. Outsi de the valid ated florencio eters , estim ated GFR is less accur ate, requi ring clini stanley judgm ent on a case- by-ca se basis . Clini stanley inter preta tion for other races and ages must be made by the clini adelia. The MDRD study equat ion has not been valid ated for the evalu ation of serum creat inine relat ed to nutri mita l statu s or medic ation usage . For perso ns <18 years of age, a pedia tric GFR calcu lator is avail able on the [facility] websi te: https ://ww w.kid girma.o rg/pr ofess ional s/kdo qi/gf r_cal culat or Not Available [facility] (Lab) [address] [place], [address], 06/19/2024 16:41:25 06/19/20 24 06/19/2024 COMPR EHENS RISHI METAB OLIC PANEL alkaline phosphatase 112 U/L 38-126 Not Available [facility] (Lab) [address] [place], [address], 06/19/2024 16:41:25 06/19/20 24 06/19/2024 COMPR EHENS RISHI METAB OLIC PANEL alanine aminotransfe rase 23 U/L 0-50 Not Available [facility] (Lab) [address] [place], [address], 06/19/2024 16:41:25 06/19/20 24 06/19/2024 COMPR EHENS RISHI METAB OLIC PANEL aspartate aminotransfe rase 32 U/L 15-46 Not Available [facility] (Lab) [address] [place], [address], 06/19/2024 16:41:25 06/19/20 24 06/19/2024 COMPR EHENS RISHI METAB OLIC PANEL bilirubin, total 0.70 mg/dL 0.20-1 .30 Not Available [facility] (Lab) [address] [place], [address], 06/19/2024 16:41:25 06/19/20 24 06/19/2024 COMPR EHENS RISHI METAB OLIC PANEL calcium 9.8 mg/dL 8.4-10 .2 Not Available [facility] (Lab) [address] [place], [address], 06/19/2024 16:41:25 06/19/20 24 06/19/2024 COMPR EHENS RISHI METAB OLIC PANEL total protein 7.4 g/dL 6.3-8. 2 Not Available [facility] (Lab) [address] [place], [address], 06/19/2024 16:41:25 06/19/20 24 06/19/2024 COMPR EHENS RISHI METAB OLIC PANEL albumin 4.5 g/dL 3.4-5. 0 Not Available [facility] (Lab) [address] [place], [address], 06/19/2024 16:41:25 06/19/20 24 06/19/2024 COMPR EHENS RISHI METAB OLIC PANEL globulin 2.9 g/dL 2.6-4. 2 Not Available [facility] (Lab) [address] [place], [address], 06/19/2024 16:41:25 06/19/20 24 06/19/2024 COMPR EHENS RISHI METAB OLIC PANEL A/G ratio 1.6 ratio 1.0-2. 0 Not Available [facility] (Lab) [address] [place], [address], 06/19/2024 16:41:25 06/19/20 24 06/19/2024 LIPID PANEL cholesterol 193 mg/dL 140-19 9 NIH GUDELIA NSUS RECOM MENDA TION FOR ELKE STERO L: ADULT CHILD LOW RISK: <200 <170 BORDE RLINE : <200- 239 ----- HIGH RISK: >240 >200 Not Available [facility] (Lab) [address] [place], [address], 06/19/2024 16:41:29 06/19/20 24 06/19/2024 LIPID PANEL triglyceride s 144 mg/dL 0-150 NIH GUDELIA NSUS REPOR T RECOM MENDA TION FOR TRIGL YCERI KARIS: ADULT CHILD LOW RISK: <150 ----- BODER LINE: 150-1 99 ----- HIGH RISK: >200 ----- Not Available [facility] (Lab) [address] [place], [address], 06/19/2024 16:41:29 06/19/20 24 06/19/2024 LIPID PANEL HDL cholesterol 52 mg/dL 40- Not Available [facility] (Lab) [address] [place], [address], 06/19/2024 16:41:29 06/19/20 24 06/19/2024 LIPID PANEL LDL cholesterol, calculated 112 mg/dL 0-130 NIH GUDELIA NSUS REPOR T RECOM MENDA TIONS FOR LDL: ADULT CHILD LOW RISK <130 <110 (OPTI MAL LDL) <100 ----- JEFFDE RLINE : 130-1 59 ----- HIGH RISK: >160 >130 A TRIGL YCERI DE RESUL T >400 INVAL IDATE S THE CALCU LATIO N FOR LDL FRACT IONAT ION - THE LDL RESUL T WILL NOT BE REPOR VÍCTOR. Not Available [facility] (Lab) [address] [place], [address], 06/19/2024 16:41:29 06/19/20 24 06/19/2024 TSH W/REF MAGGIE FT4 TSH with reflex free T4 0.603 uIU/m L 0.465- 4.680 Not Available [facility] (Lab) [address] [place], [address], 06/19/2024 17:11:18 04/21/20 24 01/16/2024 CT, angio gram, abdom en + pelvi s, w/ contr ast No observ ation record ed. BARCODE Not Available 2023 13:53:01 06/19/20 24 06/19/2024 US, bladd er No observ ation record ed. [email or web address] [facility] [place] [address] [facility], [address], [place], [address], 06/19/2024 15:14:13 10/13/19 25 01/16/2024 US, echoc ardio gram, trans thora cic, compl ete No observ ation record ed. BARCODE Not Available 2024 15:56:49 Result Notes None recorded. Problems Name Problem SNOMED Code Status Onset Date Resolution Date Notes Provider Name and Address Organization Details Recorded Time History of calculus of kidney 335853072 Active 2020 Not Available [facility] 06:08:27 Smoker 45187598 Active 2023 Paul Urena MD [address], [place], [address] , [facility] [employer] [facility] 4 15:47:42 Solitary nodule of lung 519956199 Active 2023 Paul Urena MD [address], [place], [address] , [facility] [employer] [facility] 4 15:49:25 Severe chronic obstructive pulmonary disease 433786048 Active 2023 Paul Urena MD [address], [place], [address] , [facility] 4 15:54:08 Essential hypertension 51562527 Active 2023 Barbara carlisle MD [address], [place], [address] , [facility] [employer] [facility] 4 18:36:22 Prostate specific antigen above reference range 631944773 Active 2023 Barbara carlisle MD [address], [place], [address] , [facility] 4 14:53:00 Hyperlipidemi a 23668273 Active 2023 Barbara carlisle MD [address] [facility], [address], [address] , [facility] 4 14:55:46 Anxiety 55802434 Active 2023 Reinaldo Arnold MD [address] [facility], [address], [address] , [facility] 4 15:33:08 Benign prostatic hyperplasia with outflow obstruction 008073262 Active 2023 Reinaldo Arnold MD [address] [facility], [address], [address] , [facility] 4 15:41:13 Erythrocytosi s 719106529 Active 2024 Barbara carlisle MD [address] [facility], [address], [address] , [facility] 5 11:29:23 Malignant tumor of lung 420503869 Active 2024 Barbara carlisle MD [address], [address] , [facility] 5 11:55:45 Adenocarcinom a of lung 651676467 Active 2024 Paul Urena MD [address] [facility], [address], [address] , [facility] 5 15:05:20 Notes:2-D echocardiogram EF 50%, mild MR, severe AR PFT pending Medical History: Right tinnitus Eosinophils 210/uL Rhinitis to multiple environmental allergens with postnasal drip IgE 762 IU/mL AAT PiMM 211 mg% Nicotine use 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 Procedures Surgical History Date Name Laterality Status Provider Name and Address Organization Details Recorded Time removal completed Not Available [facility] 08/2022 05:58:49 Back Surgery completed GISEL Lou [facility] 04/27/2024 15:17:56 Back Surgery completed Natalie Garrison MA [facility] 04/27/2024 15:17:57 Back Surgery completed GISEL Lou Dev[facility] 04/27/2024 15:17:58 Imaging Results Imaging Date Name Status LastModified by Organiz ation Details LastModified Time 01/16/2024 CT, angiogram, abdomen + pelvis, w/ contrast completed BARCODE Information not available 04/21/2024 13:53:01 06/19/2024 US, bladder completed [email or web address] [facility] [address], [address], [place], [address], 06/19/2024 15:14:13 01/16/2024 US, echocardiogra m, transthoracic , complete completed BARCODE Information not available 10/13/2024 15:56:49 Procedure Notes None recorded. Medical Equipment None Reported. Allergies No known drug allergies Medications Name Sig Start Date Stop Date Status Note LastModified by Organization Details LastModified Time nifedipine ER 30 mg tablet,exte nded release 24 hr TAKE 1 TABLET BY MOUTH DAILY 10/13 completed Not Available Not Available Not Available alprazolam 1 mg tablet TAKE 1 TABLET BY MOUTH 20 MINUTES BEFORE PROCEDURE 10/13 completed Not Available Not Available Not Available nifedipine ER 30 mg tablet,exte nded release TAKE 1 TABLET BY MOUTH EVERY DAY active Not Available Not Available No t Available clopidogrel 75 mg tablet TAKE 1 TABLET BY MOUTH DAILY active Not Available Not Available No t Available ciprofloxac in 500 mg tablet take 1 tablet twice a day day before procedure day of procedure and day after 10/13 completed Not Available Not Available Not Available tamsulosin 0.4 mg capsule TAKE ONE CAPSULE BY MOUTH ONCE DAILY active Not Available Not Available No t Available nicotine 21 mg/24 hr daily transdermal patch APPLY TRANSDERM ALLY ONCE DAILY 10/13 completed Not Available Not Available Not Available aspirin 81 mg chewable tablet Chew 1 tablet every day by oral route. active Not Available Not Available No t Available albuterol sulfate HFA 90 mcg/actuati on aerosol inhaler INHALE 1 PUFF BY MOUTH EVERY 4 HOURS NEEDED active Not Available Not Available No t Available ondansetron 4 mg disintegrat ing tablet DISSOLVE 1 TABLET ON THE TONGUE TWICE DAILY FOR 15 DAYS NEEDED active Not Available Not Available No t Available NyQuil prn 10/13 completed Not Available Not Available Not Available Tylenol PRN for pain 2019 active Not Available Not Available Not Avai lable Breztri Aerosphere 160 mcg-9mcg-4. 8mcg/actuat ion HFA aerosol inhaler INHALE 2 PUFFS BY MOUTH TWICE DAILY active Not Available Not Available No t Available Vitals Date Recorded Body height Body mass index (BMI) Body weight Body temperature Heart rate Oxygen saturation Oxygen saturation in Arterial blood by Pulse oximetry Systolic blood pressure Diastolic blood pressure Provider Name and Address Organization Details Last Updated DateTime 4 179.07 cm 17.3 kg/m2 71410.2 7 g 96.4 [degF] 72 /min 96 % 96 % 126 mm[Hg] 76 mm[Hg] Natalie Garrison MA [facility] [employer] 4 09:44:05 Date Recorded Body height Body mass index (BMI) Body weight Body temperature Heart rate Systolic blood pressure Diastolic blood pressure Provider Name and Address Organization Details Last Updated DateTime 4 179.07 cm 18.4 kg/m2 91469.0 1 g 97.4 [degF] 78 /min 120 mm[Hg] 80 mm[Hg] YUNG Sanchez [place] [employer] [facility] [email or web address] [facility] 4 14:34:19 Date Recorded Body height Heart rate Body temperature Body mass index (BMI) Body weight Oxygen saturation Oxygen saturation in Arterial blood by Pulse oximetry Systolic blood pressure Diastolic blood pressure Provider Name and Address Organization Details Last Updated DateTime 4 179.07 cm 90 /min 97.3 [degF] 18.1 kg/m2 55160.8 2 g 96 % 96 % 133 mm[Hg] 87 mm[Hg] Liliana Maynard CMA [facility] [employer] [facility] 4 15:10:09 Date Recorded Body height Body mass index (BMI) Body weight Body temperature Heart rate Systolic blood pressure Diastolic blood pressure Provider Name and Address Organization Details Last Updated DateTime 5 179.07 cm 18.7 kg/m2 27589.1 9 g 97.7 [degF] 90 /min 124 mm[Hg] 76 mm[Hg] YUNG Sanchez [facility] [employer] [facility] 5 11:18:21 Date Recorded Body height Body mass index (BMI) Body weight Heart rate Body temperature Oxygen saturation Oxygen saturation in Arterial blood by Pulse oximetry Systolic blood pressure Diastolic blood pressure Provider Name and Address Organization Details Last Updated DateTime 5 179.07 cm 18.7 kg/m2 97326.1 9 g 87 /min 97.5 [degF] 98 % 98 % 116 mm[Hg] 74 mm[Hg] Matilde Tello MA [facility] [employer] [facility] 5 14:41:57 Date Recorded Heart rate Respiratory rate Provider Paula guzmán and Address Organization Details Last Updated DateTime 10/13/2024 87 /min 14 /min Paul Urena MD [address] [place] [address], [address], [facility] [employer] [facility] 10/13/2024 15:20:53 Social History Question Answer Notes LastModified by Organizat ion Details LastModified Time Tobacco Smoking Status Current Every Day Smoker Not Available [facility] 10/17/2022 05:55:30 Do You Have An Advance Directive? No [id number] Information not available 10/17/2022 What Is Your Level Of Alcohol Consumption? Occasional [id number] Information not available 10/17/2022 What Is Your Level Of Caffeine Consumption? Heavy [id number] Information not available 10/17/2022 How Much Tobacco Do You Chew? None [id number] Information not available 10/17/2022 In The 14 Days Before Symptom Onset, Have You Had Close Contact With A Laboratory-confir med COVID-19 While That Case Was Ill? No [id number] Information not available 10/17/2022 In The 14 Days Before Symptom Onset, Have You Had Close Contact With A Person Who Is Under Investigation For COVID-19 While That Person Was Ill? No [id number] Information not available 10/17/2022 Are You Currently Employed? Yes Information not available 10/13/2024 What Type Of Diet Are You Following? REGULAR [id number] Information not available 10/17/2022 Which Illicit Or Recreational Drugs Have You Used? NONE [id number] Information not available 10/17/2022 Do You Or Have You Ever Used E-cigarettes Or Vape? Never Used Electronic Cigarettes [id number] Information not available 10/17/2022 Do You Have An Electrostatic Air Filter? 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 No Not That Aware Of Information not available 10/13/2024 Do You Have A Humidifier? No Information not available 04/27/2024 Where Do You Live? [place] Information not available 10/13/2024 Do You Have Moisture Problems In Your Home? No Information not available 04/27/2024 What Was The Date Of Your Most Recent Tobacco Screening? 10/13/2024 Information not available 10/13/2024 Do You Have Any Pets? Yes Information not available 04/27/2024 Do You Use Your Seat Belt Or Car Seat Routinely? Yes Information not available 04/27/2024 Do You Have Smoke And Carbon Monoxide Detectors In Your Home? Yes Information not available 04/27/2024 At What Age Did You Start Smoking Tobacco? 12 STARTED SMOKING AROUND 12 YEARS OLD [id number].[id number] Information not available 10/17/2022 Are You Passively Exposed To Smoke? No Information no t available 04/27/2024 Do You Or Have You Ever Used Smokeless Tobacco? Never Used Smokeless Tobacco [id number] [id number] Information not available 10/17/2022 How Much Tobacco Do You Smoke? 1 PPD 1.5 Packs Per Day Information not available 10/13/2024 Do You Feel Stressed (tense, Restless, Nervous, Or Anxious, Or Unable To Sleep At Night)? [id number] Information not available 04/27/2024 Do You Use Any Illicit Or Recreational Drugs? No Information not available 10/13/2024 Do You Use Sunscreen Routinely? No MIGRATION.39798 [id number] Information not available 10/17/2022 Have You Recently Traveled Abroad? No Information not available 04/27/2024 Do You Have Any Dietary Restrictions? No Information not available 04/27/2024 Do You Or Have You Ever Used Any Other Forms Of Tobacco Or Nicotine? No Information not available 06/04/2024 Sex: Unknown Functional Status Question Answer Note LastModified by Organizat ion Details LastModified Time What is your exercise level? None [id number] Information not available 10/17/2022 Mental Status None recorded. Family History Relationship Description Onset Age of this Age Resolved Age Notes LastModified by Organization Details LastModified Time Mother Family history of malignant neoplasm [id number] Not available 10/17/2022 05:58:51 Mother Aneurysm [id number] Not available 10/17/2022 05:58:51 Maternal Grandfather Family history of malignant neoplasm [id number] Not available 10/17/2022 05:58:52 Medical History Condition Response BLINDNESS N NERVE DISEASE N RHEUMATIC FEVER N BLADDER PROBLEMS N KIDNEY STONES N MRSA N OTHER # 1 N POLIO N LUNG DISEASE/DISORDER N HISTORY OF DRUG ABUSE N RADIATION / CHEMOTHERAPY N COPD N Other # 2 N BLOOD DISEASES N EAR OR HEARING PROBLEMS N MUMPS N SHINGLES N DEPRESSION (INCLUDING POST ) N BOWEL PROBLEMS N STROKE/TIA N ULCERS N BENIGN PROSTATIC HYPERPLASIA N MEASLES N HYPOTENSION N MYOCARDIAL INFARCTION N OBESITY N GERD/NAUSEA N ANEURYSM N URINARY/BLADDER/KIDNEY PROBLEMS N CORONARY ARTERY DISEASE (CAD) N ADDICTION CONCERNS N ENDOMETRIOSIS N Impotence N USE OF BLOOD THINNERS N SKIN PROBLEMS N GASTROINTESTINAL DISORDER N PERIPHERAL VASCULAR DISEASE N MUSCLE,JOINT OR BONE PROBLEMS N GASTROINTESTINAL BLEEDING N BLOOD CLOTS N ASTHMA N CATARACTS N ERECTILE DYSFUNCTION N VARICOSITIES N GI PROBLEMS N Low Testosterone N INFERTILITY N AIDS/HIV N CHEMOTHERAPY / RADIATION N LIVER DISEASE N MALE HYPOGONADISM N HYPERTENSION N Deficiency N TOURETTE'S N ANXIETY DISORDER N BLOOD TRANSFUSION N ANEMIA/BLOOD DISORDER N CHRONIC EAR INFECTIONS N BRONCHITIS N TUBERCULOSIS N GLAUCOMA N FOOT PROBLEM N DIVERTICULITIS N CHICKENPOX N SLEEP APNEA N INFECTIOUS DISEASE N HEART ARRHYTHMIA N PROSTATE N INSOMNIA N HIGH CHOLESTEROL / HYPERLIPIDEMIA N HYPERTHYROIDISM N EYE PROBLEMS N EDEMA N CHRONIC PAIN SYNDROME N HYPOTHYROIDISM N CAROTID BLOCKAGE N CONSTIPATION N BACK / NECK PROBLEMS Y ATHEROSCLEROSIS N BREAST PROBLEMS N DIALYSIS N ECZEMA N OSTEOPOROSIS N ARTHRITIS N APPENDICITIS N DIABETES, TYPE N BAD TEETH N ENT N HEARTBURN / REFLUX N AUTISM SPECTRUM DISORDER (ASD) N HEPATITIS / LIVER DISEASE N GOUT N SLEEP DISORDER N ALZHEIMER'S DISEASE N Brain Problems N HERPES N DEMENTIA N HEADACHES/MIGRAINES Y SEIZURES/EPILEPSY N VASCULAR DISEASE N PACEMAKER N Blood Disorder N DIZZINESS N HEART DISEASE/HEART PROBLEMS N KIDNEY DISEASE N MULTIPLE SCLEROSIS N CARDIAC ARRHYTHMIA N CANCER: SPECIFY N ATRIAL FIBRILLATION N Gall Stones N PULMONARY EMBOLISM N AUTOIMMUNE DISEASE N Immunizations Vaccine Type Date Status Note Provider Nam e and Address Organization Details Recorded Time pneumococcal polysaccharide PPV23 0 completed Not Available [facility] 10/17/2022 06:18:40 Tdap 0 completed Not Available [facility] 10/17/2022 06:18:40 Influenza, split virus, trivalent, PF 4 completed Barbara Mcdonald MD [address] [place] [address], [place], [address], [facility] [employer] [facility] 06/12/2024 23:53:37 Past Encounters Encounter ID Performer Location Encounter Start Date Encounter Closed Date Diagnosis/Indication Diagnosis SNOMED-CT Code Diagnosis ICD10 Code Diagnosis Note [id number] Paul Urena MD [facility] [place] [address] [place] [address] 15 [place] [address] 04/27/2024 14:37:02 04/28/2024 15:19:38 Smoker 30045180 F17.218 F17.219 Z87.891 Solitary n odule of lung 359984834 R91.1 Severe chr onic obstructive pulmonary disease 784109953 J44.9 Dyspnea on exertion 6084 5006 R06.09 R05.9 T78.40XA D89.9 [id number] Barbara carlisle MD [facility] Internal Med [facility] [address] [place] [address] 15 [place] [address] 04/30/2024 09:26:00 04/30/2024 10:28:20 Screening - NAD 967005272 Z13.9 C-scope: Get this if not done Get yearly flu shot, get Tdap if not doneCan do shingrix vaccineGet RSV vaccine, can do COVID 19 vaccine RTC in 3 months, do labs Essential hypertension 79540101 I10 [facility] Dr Wells 03/31/2024 , f/u in one month On nifedipine ER 30mg dailyGet labs Chronic ob structive pulmonary disease 06946050 J44.9 JuanOn Karoline louise odasaf of lung 695053500 R91.1 Dr Urena 04/27/2024 Referred to thoracic surgeon by Dr Starr referred to Dr Urena Screening for malignant neoplasm of prostate 126855817 Z12.5 Screening for malignant neoplasm of colon 715566249 Z12.11 [id number] Barbara carlisle MD [facility] Internal Med [facility] [address] [facility], [facility] 15 [place] [address] 06/04/2024 14:22:36 06/04/2024 15:16:16 Screening - NAD 394104486 Z13.9 C-scope: Get this if not done Get yearly flu shot, get Tdap if not doneCan do shingrix vaccineGet RSV vaccine, can do COVID 19 vaccine RTC in 3 months, do labs, ER if worse, he did verbalize his understand ing of the above Essential hypertension 07707432 I10 [facility] 03/04/[address] [facility] [address] Wells 03/31/2024 , f/u in [facility] Dr Wells 04/27/2024 , f/u in 6 months On nifedipine ER 30mg dailyGet labs Chronic ob structive pulmonary disease 00958506 J44.9 Alice louise odasaf of lung 026217322 R91.[address] 03/12/2204 Dr Urena 04/27/2024 Referred to thoracic surgeon by Dr Urena, Dr Shon Kingsley referred to Dr Urena Screening for malignant neoplasm of colon 520868744 Z12.11 Prostate s pecific antigen above reference range 436165020 R97.20 Get a referral to urologist Hyperkalemia 08494981 E8 7.5 Repeat the K level Hyperlipidemia 36058617 E78.5 More diet and exerciseHe has declined any meds as he feels that this is 'borderlin e'Repeat the labs Administra tion of influenza vaccine 59301701 Z23 [id number] Reinaldo Arnold MD [facility] [address], [address] [place] [address] 06/19/2024 14:58:36 06/19/2024 15:58:08 Prostate specific antigen above reference range 700171610 R97.20 Anxiety 81282035 F41.9 Benign pro static hyperplasia with outflow obstruction 782636229 N40.1 [id number] Barbara carlisle MD [facility] Internal Med [facility] [address] [facility], [facility] 15 [place] [address] 10/13/2024 10:59:33 10/13/2024 11:56:30 Screening - NAD 376150313 Z13.9 C-scope: Get this if not done, referred 10/13/2024 Get yearly flu shot, get Tdap if not doneCan do shingrix vaccineGet RSV vaccine, can do COVID 19 vaccine RTC in 3 months, do labs, ER if worse, he did verbalize his understand ing of the above Essential hypertension 85226276 I10 [facility] 03/04/[address] [facility] [address] Wells 03/31/2024 , f/u in [facility] Dr Wells 04/27/2024 , f/u in 6 months On nifedipine ER 30mg daily renewed 10/13/2024 Get labs Chronic ob structive pulmonary disease 49537834 J44.9 SmokerOn Karoline n Sriram s Dr Ayanna Larios n odule of lung 946813399 R91.[address] 03/12/2204 Dr Urena 04/27/2024 Referred to thoracic surgeon by Dr Urena, Dr Shon Kingsley referred to Dr Ayanna Lindquist 07/10/2024 , referred to Dr Valderrama, as per Dr Lindquist 10/13/2024 , to get SBRT treatmentH e should see Dr Lindquist Screening for malignant neoplasm of colon 234788847 Z12.11 Prostate s pecific antigen above reference range 994682349 R97.20 Get a referral to urologist Hyperlipidemia 62380884 E78.5 More diet and exerciseHe has declined any meds as he feels that this is 'borderlin e'Repeat the labs Erythrocytosis 858096576 D75.[address] Lindquist Nausea and vomiting 1693 1999 R11.2 Will get on zofranWill do CT A/P with oncology, did personally speak with Dr Lindquist, today regarding his care Malignant tumor of lung 149434516 C34.90 S/p visit with Dr Vela/p radiaton Rx Dr Valderrmaa, now will have a follow up with Dr Lindquist again [id number] Paul Urena MD [facility] Pulmonolo gy [place] [address] 10/13/2024 14:21:47 10/13/2024 15:24:35 Smoker 29512946 F17.218 F17.219 Z87.891 Severe chr onic obstructive pulmonary disease 210895532 J44.9 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 Health Concerns Section Related Observation LastModified by Organization Detai ls LastModified Time None Recorded Concern Status LastModified by Organization Details LastModified Time None Recorded Advance Directives Directive N: Payers Encounter Date Sequence Insurance Name Policy Number Policy Martin Covered Member ID Martin Member ID Guarantor Name 04/30/2024 1 [facility] [id number] Prosper Arzola West [id number] Prosper L West 06/04/2024 1 [facility] [id number] Prosper Arzola West [id number] Prosper L West 06/19/2024 1 [facility] [id number] Prosper Arzola West [id number] Prosper L West 10/13/2024 1 [facility] [id number] Prosper L West [id number] Prosper L West 10/13/2024 1 [facility] [id number] Prosper Arzola West [id number] Prosper Arzola West Notes Date Note Type Note Provider Name and Address Organization Details Recorded Time 04/30/2024 text/html OV 04/30/2024:He re to establish care Present hx:HTNCOPDLung nodule Here to discuss above, states that he was seen by Dr Urena and the instructor technical training, did have a PET CT and is now referred to more testing Barbara Mcdonald MD [address], [place], [address], [facility] [employer] [facility] 05/04/2024 17:39:02 06/04/2024 text/html OV 04/30/2024:He re to establish care Present hx:HTNCOPDLung nodule Here to discuss above, states that he was seen by Dr Urena and the instructor technical training, did have a PET CT and is now referred to more testing OV 06/04/2024: Here for his f/u apt, he is doing well, he did do the labs on 06/02/2024 Barbara Mcdonald MD [address], [place], [address], [facility] [employer] [facility] 06/12/2024 23:55:15 06/19/2024 text/html this patient has a PSA of 4.72 which is definitely high for someone that is only 59 years of age. He has some slight BPH symptoms but he drinks a lot of coffee and tea and he gets up 0-3 times per night. But his bladder scan shows a postvoid residual of 142 He is very thin. He is a smoker. He has no history of gross hematuria. Reinaldo Arnold MD [address], [place], [address], [facility] [employer] 07/08/2024 17:41:34 10/13/2024 text/html Primary care/Referring provider: Barbara Mcdonald MD; Nhi Wells MD; Constantine Trujillo MD Patient is here to go over his JEAN MARIE adenocarcinoma and ACO management. Initial development of shortness of breath: 1978Duration of shortness of breath: 47 yearsCondition of shortness of breath: stableTiming of shortness of breath: noneFrequency: up to 3 times a dayLimits activities: yesAggravating factors: walking, bending over, cold airAlleviating factors: rest Modified [employer] [place] ([employer]) Dyspnea Scale - Grade 2Grade 0 I only get breathless with strenuous exercise .Grade 1 I get short of breath when hurrying on the level or walking up a slight hill .Grade 2 I walk slower than people of the same age on the level because of breathlessness or have to stop for breath when walking at my own pace on the level .Grade 3 I stop for breath after walking about 100 yards or after a few minutes on the level .Grade 4 I am too breathless to leave the house or I am breathless when dressing . Treatment history: Albuterol HFA as needed since 02/2024 [facility] 160/9/4.8 mcg 2 puffs BID Other symptoms:Drooling: noDysarthria: noNeck pain: noOdynophagia: noDysphagia: noWeak mastication: noFacial weakness: noNasal speech: noProtruding tongue: noProductive cough: clearWheezing: noChest tightness: yesOrthopnea: 2-pillow habitFrequent throat clearing or swallowing: noPalpitations: noHeartburn: noEdema: no Environmental exposures:Nicotine smoke: 2 ppd since 1997 = 54 pack yearsPaint: noDye: noDust mites: yesMold: noDamp basement: noWood burning stove: noAnimal dander: 2 dogsCockroaches: noPollen: yesArsenic: noAsbestos: noBeryllium: noCadmium: noChromium: noCoal smoke: noDiesel fumes: noNickel: noSilica: noSoot: no EPWORTH SLEEPINESS SCALE (ESS) CHANCE OF DOZING SCORE0 = would never doze1 = slight chance of dozing2 = moderate chance of dozing3 = high chance of dozing SITUATION AND CHANCE OF DOZINGSitting and reading - 1Watching television - 1Sitting inactive in a public place (e.g. a theater or meeting) - 0As a passenger in a car for an hour without a break - 2Lying down to rest in the afternoon when circumstances permit - 2Sitting and talking to someone - 0Sitting quietly after lunch without alcohol - 1In a car, while stopped for a few minutes in the traffic - 1TOTAL SCORE 8Subjectively, patient has a moderate chance of dozing. Paul Urena MD [address], [place], [address], [facility] [employer] [facility] [email or web address] [facility] 10/13/2024 15:21:11 10/13/2024 text/html OV 04/30/2024:He re to establish care Present hx:HTNCOPDLung nodule Here to discuss above, states that he was seen by Dr Urena and the instructor technical training, did have a PET CT and is now referred to more testing OV 06/04/2024: Here for his f/u apt, he is doing well, he did do the labs on 06/02/2024 OV 10/13/2024: Here for his f/u apt, he has been doing well, s/p radiation Rx with Dr Valderrama, has another apt and has to still have an apt with Dr Lindquist, he did have an episode of N/V yesterday but states that he ate a lot of 'greasy fast food', none today Barbara Mcdonald MD [address], [place], [address], [employer] 10/13/2024 12:03:48
[2024-10-29 16:35] LABS: Alanine Aminotransferase 13 U/L (6-50); Albumin Level 4.1 g/dL (3.5-5.1); Alkaline Phosphatase 107 U/L (38-126); Anion Gap 8 mmol/L (4-12); Aspartate Amino Transferase 22 U/L (17-59); Bilirubin,Total 0.6 mg/dL (0.2-1.3); Blood Urea Nitrogen 12 mg/dL (9-20); Calcium 9.4 mg/dL (8.4-10.2); Carbon Dioxide 29 mmol/L (22-30); Chloride 102 mmol/L (98-107); Estimated Glomerular Filt Rate > 60; Glucose 86 mg/dL (65-110); Sodium 139 mmol/L (137-145)
== END 2024-10-29 14:24 | disposition home or self-care (01) ==
LOC: ANHLAB 14:24
PROVIDERS: Visit Provider Internal Medicine Hematology & Oncology
DX: C34.12 Malignant neoplasm of upper lobe, left bronchus or lung (principal)
CPT/HCPCS: 36415; 80047; 80053; 85025

== ENCOUNTER 2024-11-27 00:21 | Day surgery (SDC) | payer OTHER, SELFPAY ==
[2024-11-20 08:40] VITALS: BMI 17.9
--- NOTE | 2024-11-20 09:18 | PC.NURSE ---
Spoke with patient regarding medication aspirin. Patient verbalizes understanding that the last dose is to be taken on 11/21/2024 and the Endoscopist will instruct them when to restart after the procedure. Got clearance from Dr. Wells. Pt no longer takes plavix. Hold ASA for 5 days, per Dr. Wells.
--- OUTSIDE RECORDS SUMMARY | 2024-11-27 00:23 | XMS_ITS | Clinical Summary ---
Author Organization [facility] [employer] Address [address] [place] [address] Care Team Providers Care Rand Cementer Name Role Phone Barbara Mcdonald MD Primary Care Provider Source Comments [facility] [employer],non-owned Affiliates and Associated Physician Practices is amultiple site organization consisting of ambulatory clinics and hospital sitesin [place], [place], [place] and [place]. This disclosure is being madepursuant to the Care Everywhere program and may not contain all information available regarding this patient. Last updated 18.[facility] Allergies No known active allergies Medications * [...] age to complete this topic Care Teams Rand Cementer Relationship Specialty Start Date End Date Barbara Mcdonald MD [address] [facility] [address] [place] [address] PCP - General Internal Medicine 04/29/24
--- OUTSIDE RECORDS SUMMARY | 2024-11-27 00:23 | XMS_ITS | CONTINUITY OF CARE DOCUMENT ---
Author Name gopal herron Address Unknown Organization [facility] Address [address] [place] [address] Phone [phone] Care Team Providers Care Regulatory Manager Name Role Phone Priscilla ANTONIO, Rj Unavailable TATIANA ANTONIO, NII Unavailable [phone] TATIANA ANTONIO, NII Unavailable PROBLEMS Condition Status [...] Rj Germain Ascending aorta dilitation active Rj tylre MD Aortic regurgitation, severe active Rj Wells MD Abdominal aortic aneurysm, w ithout rupture, unspecified active Rj Wells MD TIA active Rj Wells MD Cardiology examination active Rj carlisle MD COPD active Rj Wells MD Lung cancer active Rj Wells MD ENCOUNTERS Date Type Provider Location Encounter Diag nosis - In-person encounter Office Visit Rj Wells MD [facility] Lung cancer - In-person encounter Office Visit Rj Wells MD [facility] - In-person encounter Office Visit Rj Wells MD [facility] Pulmonary nodule, spiculated, left upper lobe, concerning for malignancyCardiology examinationCOPD - In-person encounter Office Visit Rj Wells MD [facility] Pulmonary nodule, spiculated, left upper lobe, concerning for malignancyAscending aorta dilitationAortic regurgitation, severeAbdominal aortic aneurysm, without rupture, unspecifiedTIA - In-person encounter Office Visit Constantine Trujillo MD [facility] Abnormal EKGTobacco abuseHTN essentialh/o Kidney stonesShortness of breath with exertion VITAL SIGNS Date Observation Value Provider Body Mass Index (Ratio) 17.85 kg/m2 Marilee Wells MD blood pressure, diastolic 88 mm[Hg] Shiva [facility] blood pressure, systolic 120 mm[Hg] Amaris danilo [facility] oxygen saturation, oximetry 97 % [facility] 87 /min Pamela [facility] blood pressure, cuff size regular Shiva nieves [facility] weight E&M 128 [lb_av] [facility] height E&M 71 [in_i] [facility] Body Mass Index (Ratio) 17.32 kg/m2 Marilee Wells MD blood pressure, diastolic 90 mm[Hg] Stephen Swan blood pressure, systolic 126 mm[Hg] Fantasma ob Delanot oxygen saturation, oximetry 98 % Emanuel Swan pulse rate 78 /min Emanuel Swan weight E&M 124.2 [lb_av] Emanuel Wickt height E&M 71 [in_i] [facility] Body Mass Index (Ratio) 16.87 [...] Zaira Belcher height E&M 71 [in_i] Zaira [place] Body Mass Index (Ratio) 17.29 kg/m2 Marilee [...] Payer name Policy type / Coverage type [employer] party ID [id number] [id number] ADVANCE DIRECTIVES Name Date DISCUSSED - NO [...] L W/EGFR PET/CT Whole Body DLCO - 08508 FRC - 17520 FVC - 68261 CT Chest without con trast DLCO - 44375 FRC - 48181 FVC - 99566 Complete Echo HISTORY OF PROCEDURES Procedure Date Procedure Name Provider Procedure Notes S tatus Complex e/m visit add on Rj Wells MD completed Complex e/m visit add on Rj Wells MD completed Complex e/m visit add on Rj Wells MD completed EKG Rj Wells MD complet ed EKG Constantine Truijllo MD completed
--- OUTSIDE RECORDS SUMMARY | 2024-11-27 00:23 | XMS_ITS | Clinical Summary ---
Author Organization [facility] Mallika whitaker Humberto Address [address] [place] [address] Care Team Providers Care Hvac Instructor Name Role Phone Barbara Mcdonald MD Primary [...] Encounters Date Type Department Care Team Description 11/02/2024 Orders Only [facility] Oncology and Hematology [facility] [address] [place] [address] Hilton Lindquist MD 10/29/2024 2:30 PM CDT Office Visit [facility] Oncology [facility] H[facility]ology [facility] [address] [place] [address] Hilton Lindquist MD Malignant neoplasm of upper lobe of left lung (CMS/HCC) (Primary Dx) 10/21/2024 Orders Only [facility] Oncology and Hematology [place] [address] [place] [address] Hilton Lindquist MD 10/13/2024 Orders Only [facility] Oncology [facility] H[facility]ology [place] [address] [place] [address] Hilton Lindquist MD Malignant neoplasm of upper lobe of left lung (CMS/HCC) (Primary Dx) 10/07/2024 External Device Data STL ABSTRACTION Provider, Abstract 09/15/2024 External Device Data STL ABSTRACTION Provider, Abstract 09/09/2024 External Device Data STL ABSTRACTION Provider, Abstract 09/09/2024 External Device Data STL ABSTRACTION Provider, Abstract 09/01/2024 External Device Data STL ABSTRACTION Provider, Abstract from Last 3 Months Family History Medical [...] cm (5' 10 ) 06/29/2024 2:38 PM FULL TIME Body Mass Index 18.08 06/29/2024 2:38 PM FULL TIME Plan of Treatment Upcoming Encounters Date Type Department Care Team (Late st Contact Info) Description 02/03/2025 3:30 PM CDT Office Visit [facility] Oncology and Hematology - [place] [address] [facility] [address] [facility] [address] [place] [address] Hilton Lindquist MD [address] [address] [place] [address] Health Maintenance Due Date Last [...] Procedure Name Priority Date/Time Associated Diagnosis Comments COMPREHENSIVE METABOLIC PANEL Routine 10/29/2024 3:[address] CHEST ABDOMEN PELVIS W CONT Routine 10/20/2024 9:23 AM FULL TIME from Last 3 Months Results * COMPREHENSIVE METABOLIC PANEL (10/29/2024 3:44 PM CDT) Blood us Hilton Lindquist MD CHEMISTRY ORDERABLES Final Resu lt * CT CHEST ABDOMEN PELVIS W CONT (10/20/2024 9:23 AM FULL TIME) Anatomical Region Laterality Modality Chest Computed Tomogra phy us Hilton Lindquist MD CT ORDERABLES Final Result from Last 3 Months Insurance Erma ODONNELL [address] [id number] Care Teams Hvac Instructor Relationship Specialty Start Date End Date Barbara Mcdonald MD PCP - General Internal Medicine 06/10/24
--- OUTSIDE RECORDS SUMMARY | 2024-11-27 00:24 | XMS_ITS | Data Portability ---
Author Organization [place] - [facility] [employer] Main Office Address [address] [place] [address] Care Team Providers Care Fabric Worker Supervisor Name Role Phone BARBARA MCDONALD Primary Care Provider BARBARA MCDONALD Referring Provider PALU URENA Materials Buyer JINA COREAS Air Reduction Equipment Operator NHI [place]S Mission Systems Engineer Assessment Encounter Date Assessment Date Assessment LastModified [...] and November 10. Nicotine cessation counseling provided. [place] for quitting nicotine include getting ready, getting [...] in Quit For Life program Registering at [email or web address] Making a call to 9-048-EIZF-NOW ( ). A strong, clear, personalized message [...] failure or relapse. Patient can enroll in [facility]'s smoking cessation class through America Velásquez RN [...] patient's capacity limits. In this case, we [id number] min daily walking, 2 days a week [...] Lab CMP, serum or plasma [address] (Lab), [address] [place], [address], 10/15/2024 10:04:14 lipid panel, serum [address] (Lab), [address] [place], [address], 10/15/2024 10:04:14 CBC w/ auto diff [address] (Lab), [address] [place], [address], 10/15/2024 10:04:14 TSH, serum or plasma [address] (Lab), [address] [place], [address], 10/15/2024 10:04:14 potassium , serum or plasma [email or web address] (Lab), [address] [place], [address], 06/11/2024 09:20:22 CMP, serum or plasma 2023 024 [facility] (Lab), [address] [place], [address], 06/19/2024 16:41:25 lipid panel, serum 2023 024 [facility] (Lab), [address] [place], [address], 06/19/2024 16:41:29 CBC w/ auto diff 2023 024 [facility] (Lab), [address] [place], [address], 06/19/2024 16:36:22 TSH, serum or plasma 2023 024 [facility] (Lab), [address] [place], [address], 06/19/2024 17:11:19 PSA, total, serum or plasma 2023 024 [facility] (Lab), [address] [place], [address], 06/02/2024 18:43:52 CMP, serum or plasma 2023 024 [facility] (Lab), [address] [place], [address], 06/02/2024 18:08:50 lipid panel, serum 2023 024 [facility] (Lab), [address] [place], [address], 06/02/2024 18:08:54 CBC w/ auto diff 2023 024 [facility] (Lab), [address] [place], [address], 06/02/2024 17:50:24 TSH, serum or plasma 2023 024 [facility] (Lab), [address] [place], [address], 06/02/2024 18:43:47 Referral pulmonolo gist referral 2024 025 [email or web address] Paul Urena MD, [address] [place], [address], 10/13/2024 17:46:32 urologist referral - Please call patient to schedule an appointme nt. Thank you. 2024 025 [email or web address], [address], [address], [place], [address], 10/29/2024 13:35:28 hematolog ist/oncol ogist referral - Please call patient to schedule an appointme nt. Thank you. 2024 025 KEATON Lindquist MD, [address], [place], [address], 10/13/2024 18:45:23 cardiolog ist referral 2024 025 [email or web address] Nhi [place], [address], [address], [place], [address], 10/14/2024 09:56:30 pulmonolo gist referral 2023 024 [email or web address] Paul Urena MD, [address] [place], [address], 06/04/2024 18:39:49 urologist referral 2023 024 TROY Arnold, [address] [facility] [place], [address], 06/19/2024 15:55:24 hematolog ist/oncol ogist referral 2023 024 [email or web address] Hilton Lindquist MD, [address], [place], [address], 07/02/2024 16:01:23 cardiolog ist referral 2023 024 Nhi [place], [address], [address] [place], [address], 06/04/2024 18:39:22 hematolog ist/oncol ogist referral 2023 024 [email or web address] Hilton Lindquist MD, [address], [place], [address], 05/05/2024 09:14:45 cardiolog ist referral 2023 024 [email or web address] Nhi [place], [address], [address], [place], [address], 05/05/2024 09:15:36 pulmonolo gist referral 2023 024 [email or web address] Paul Urena MD, [address] [facility] [place], [address], 05/05/2024 09:15:21 Procedures colonosco py screening (PROC) - Please call patient to schedule an appointme nt. Thank you. 2024 025 [email or web address] Aleksey Mercado MD, [address] [facility] [address], [place], [address], 11/11/2024 08:40:56 colonosco py screening (PROC) - Please call patient to schedule. 2023 024 Jina Coreas MD, [address] [facility], [place], [address], 06/04/2024 18:36:40 colonosco py screening (PROC) - Please call patient to schedule. 2023 024 [email or web address] Jina Coreas MD, [address] [facility], [place], [address], 06/08/2024 15:37:57 Surgeries None recorded. Imaging US, bladder 2023 024 [email or web address], [address], [place], [address], 06/19/2024 15:58:09 Medication Orders albuterol sulfate HFA 90 mcg/actua tion aerosol inhaler 2024 025 [id number], [address] [place], [place], [id number], 10/13/2024 15:02:43 Breztri Aerospher e 160 mcg-9mcg- 4.8mcg/ac tuation HFA aerosol inhaler 2024 025 [facility] #[id number], [address] [place], [place], [id number], 10/13/2024 15:02:42 ondansetr on 4 mg disintegr ating tablet 2024 [facility] #[id number], [address] [place], [place], [id number], 10/13/2024 11:57:21 nifedipin e ER 30 mg tablet,ex tended release 2024 025 [facility] #[id number], [address] [place], [place], [id number], 10/13/2024 11:57:21 ciproflox acin 500 mg tablet [address] [facility], [address] [place], [place], [id number], 10/13/2024 11:15:11 tamsulosi n 0.4 mg capsule 2023 024 [facility] #[id number], [address] [place], [place], [id number], 06/19/2024 15:41:41 alprazola m 1 mg tablet [address] [facility][id number], [address] [place], [place], [id number], 10/13/2024 11:15:55 Breztri Aerospher e 160 mcg-9mcg- 4.8mcg/ac tuation HFA aerosol inhaler 2023 024 [facility][id number], [address] [place], [id number], 06/04/2024 15:06:52 Patient TargetsNo targets recorded. Patient Instructions Encounter Date Encounter Id Patient Instructions Last Modified By Organization Details Last Modified Time 06/19/2024 [id number] 1. The patient will be scheduled in [...] transperineal [email or web address] Not available 07/08/2024 17:41:29 10/13/2024 [id number] complete PFT w/ post bronchodilator spirometry* Not available 10/13/2024 15:02:37 Reason for Referral Materials Buyer Referral for C hronic obstructive pulmonary disease Referring Physician: Barbara Mcdonald, Internal Medicine, Encounter Date: 04/30/2024 Mission Systems Engineer Referral for Es sential hypertension Referring Physician: Barbara Mcdonald Internal Medicine, Encounter Date: 04/30/2024 Referring Physician: Barbara Mcdonald Internal Medicine, Encounter Date: 04/30/2024 Materials Buyer Referral for C hronic obstructive pulmonary disease Referring Physician: Barbara Mcdonald Internal Medicine, Encounter Date: 06/04/2024 Mission Systems Engineer Referral for Es sential hypertension Referring Physician: Barbara Mcdonald Internal Medicine, Encounter Date: 06/04/2024 Referring Physician: Barbara Mcdonald Internal Medicine, Encounter Date: 06/04/2024 Urologist Referral for Prost ate specific antigen above reference range Referring Physician: Barbara Mcdonald Internal Medicine, Encounter Date: 06/04/2024 Materials Buyer Referral for C hronic obstructive pulmonary disease Referring Physician: Barbara Mcdonald Internal Medicine, Encounter Date: 10/13/2024 Mission Systems Engineer Referral for Es sential hypertension Referring Physician: [...] 7.6 x10'3 /uL 4.2-10 .8 Not Available [facility] (Lab) [address] [place], [address], 06/02/2024 17:50:24 06/02/20 24 06/02/2024 CBC/C OMPLE TE BLD COUNT W/DIF F red blood cells 4.97 x10'6 /uL 4.10-5 .80 Not Available [facility] (Lab) [address] [place], [address], 06/02/2024 17:50:24 06/02/20 24 06/02/2024 CBC/C OMPLE TE BLD COUNT W/DIF F hemoglobin 15.8 g/dL 13.2-1 7.0 Not Available [facility] (Lab) [address] [place], [address], 06/02/2024 17:50:24 06/02/2006/02/2024 CBC/C OMPLE TE BLD COUNT W/DIF F hematocrit 46.6 % 39.3-5 0.0 Not Available [facility] (Lab) [address] [place], [address], 06/02/2024 17:50:24 06/02/2006/02/2024 CBC/C OMPLE TE BLD COUNT W/DIF F mean red cell volume 93.8 fL 80.0-9 7.0 Not Available [facility] (Lab) [address] [place], [address], 06/02/2024 17:50:24 06/02/2006/02/2024 CBC/C OMPLE TE BLD COUNT W/DIF F mean red cell hemoglobin 31.8 pg 27.0-3 3.0 Not Available [facility] (Lab) [address] [place], [address], 06/02/2024 17:50:24 06/02/2006/02/2024 CBC/C OMPLE TE BLD COUNT W/DIF F mean RBC HGB concentratio n 33.9 g/dL 31.0-3 6.0 Not Available [facility] (Lab) [address] [place], [address], 06/02/2024 17:50:24 06/02/20 24 06/02/2024 CBC/C OMPLE TE BLD COUNT W/DIF F red cell distribution width 13.2 % 11.8-1 5.5 Not Available [facility] (Lab) [address] [place], [address], 06/02/2024 17:50:24 06/02/20 24 06/02/2024 CBC/C OMPLE TE BLD COUNT W/DIF F platelets 219 x10'3 /uL 150-40 0 Not Available [facility] (Lab) [address] [place], [address], 06/02/2024 17:50:24 06/02/2006/02/2024 CBC/C OMPLE TE BLD COUNT W/DIF F mean platelet volume 8.9 fL 9.0-12 .4 low Not Available [facility] (Lab) [address] [place], [address], 06/02/2024 17:50:24 06/02/2006/02/2024 CBC/C OMPLE TE BLD COUNT W/DIF F neutrophils 63.9 % 39.0-7 2.0 Not Available [facility] (Lab) [address] [place], [address], 06/02/2024 17:50:24 06/02/2006/02/2024 CBC/C OMPLE TE BLD COUNT W/DIF F lymphocytes 23.7 % 16.0-4 7.0 Not Available [facility] (Lab) [address] [place], [address], 06/02/2024 17:50:24 06/02/20 24 06/02/2024 CBC/C OMPLE TE BLD COUNT W/DIF F monocytes 8.7 % 5.0-12 .0 Not Available [facility] (Lab) [address] [place], [address], 06/02/2024 17:50:24 06/02/2006/02/2024 CBC/C OMPLE TE BLD COUNT W/DIF F eosinophils 2.5 % 1.0-7. 0 Not Available [facility] (Lab) [address] [place], [address], 06/02/2024 17:50:24 06/02/20 24 06/02/2024 CBC/C OMPLE TE BLD COUNT W/DIF F basophils 0.7 % 0.0-2. 0 Not Available [facility] (Lab) [address] [place], [address], 06/02/2024 17:50:24 06/02/2006/02/2024 CBC/C OMPLE TE BLD COUNT W/DIF F immature granulocytes 0.5 % 0.00-0 .50 Not Available [facility] (Lab) [address] [place], [address], 06/02/2024 17:50:24 06/02/2006/02/2024 CBC/C OMPLE TE BLD COUNT W/DIF F neutrophils, absolute count 4.82 x10'3 /uL 1.5-8. 0 Not Available [facility] (Lab) [address] [place], [address], 06/02/2024 17:50:24 06/02/20 24 06/02/2024 CBC/C OMPLE TE BLD COUNT W/DIF F lymphocytes, absolute count 1.79 x10'3 /uL 1.07-3 .43 Not Available [facility] (Lab) [address] [place], [address], 06/02/2024 17:50:24 06/02/20 24 06/02/2024 CBC/C OMPLE TE BLD COUNT W/DIF F monocytes, absolute count 0.66 x10'3 /uL 0.29-0 .99 Not Available [facility] (Lab) [address] [place], [address], 06/02/2024 17:50:24 06/02/2006/02/2024 CBC/C OMPLE TE BLD COUNT W/DIF F eosinophils, absolute count 0.19 x10'3 /uL 0.02-0 .53 Not Available [facility] (Lab) [address] [place], [address], 06/02/2024 17:50:24 06/02/20 06/02/2024 CBC/C OMPLE TE BLD COUNT W/DIF F basophils, absolute count 0.05 x10'3 /uL 0.01-0 .08 Not Available [facility] (Lab) [address] [place], [address], 06/02/2024 17:50:24 06/02/20 24 06/02/2024 CBC/C OMPLE TE BLD COUNT W/DIF F immature granulocytes ,absolute 0.04 x10'3 /uL 0.00-0 .05 Not Available [facility] (Lab) [address] [place], [address], 06/02/2024 17:50:24 06/02/2006/02/2024 CBC/C OMPLE TE BLD COUNT W/DIF F nucleated red blood cells 0.0 % -0 Not Available [facility] (Lab) [address] [place], [address], 06/02/2024 17:50:24 06/02/20 24 06/02/2024 CBC/C OMPLE TE BLD COUNT W/DIF F NRBC# 0.00 x10'3 /uL Not Available [facility] (Lab) [address] [place], [address], 06/02/2024 17:50:24 06/02/2006/02/2024 COMPR EHENS RISHI METAB OLIC PANEL sodium 140 mmol/ L 137-14 5 Not Available [facility] (Lab) [address] [place], [address], 06/02/2024 18:08:50 06/02/2006/02/2024 COMPR EHENS RISHI METAB OLIC PANEL potassium 5.3 mmol/ L 3.5-5. 1 high Not Available [facility] (Lab) [address] [place], [address], 06/02/2024 18:08:50 06/02/20 06/02/2024 COMPR EHENS RISHI METAB OLIC PANEL chloride 105 mmol/ L 98-107 Not Available [facility] (Lab) [address] [place], [address], 06/02/2024 18:08:50 06/02/20 24 06/02/2024 COMPR EHENS RISHI METAB OLIC PANEL carbon dioxide 29 mmol/ L 22-30 Not Available [facility] (Lab) [address] [place], [address], 06/02/2024 18:08:50 06/02/2006/02/2024 COMPR EHENS RISHI METAB OLIC PANEL anion gap 11.3 mmol/ L 14-22 low Not Available [facility] (Lab) [address] [place], [address], 06/02/2024 18:08:50 06/02/2006/02/2024 COMPR EHENS RISHI METAB OLIC PANEL glucose 82 mg/dL 70-99 Not Available [facility] (Lab) [address] [place], [address], 06/02/2024 18:08:50 06/02/20 24 06/02/2024 COMPR EHENS RISHI METAB OLIC PANEL BUN 8 mg/dL 8-19 Not Available [facility] (Lab) [address] [place], [address], 06/02/2024 18:08:50 06/02/20 24 06/02/2024 COMPR EHENS RISHI METAB OLIC PANEL creatinine 1.06 mg/dL 0.66-1 .25 Not Available [facility] (Lab) [address] [place], [address], 06/02/2024 18:08:50 06/02/20 24 06/02/2024 COMPR EHENS RISHI METAB OLIC PANEL GFR >60 Refer ence Range : [place] ge GFR Healt hy Adult : >60 [...] calcu lator is avail able on the [facility] websi te: https ://alicia w.kid girma.o rg/pr ofess ional s/kdo qi/gf r_cal culat or Not Available [facility] (Lab) [address] [place], [address], 06/02/2024 18:08:50 06/02/20 24 06/02/2024 COMPR EHENS RISHI METAB OLIC PANEL alkaline phosphatase 101 U/L 38-126 Not Available [facility] (Lab) [address] [place], [address], 06/02/2024 18:08:50 06/02/20 24 06/02/2024 COMPR EHENS RISHI METAB OLIC PANEL alanine aminotransfe rase 20 U/L 0-50 Not Available [facility] (Lab) [address] [place], [address], 06/02/2024 18:08:50 06/02/20 24 06/02/2024 COMPR EHENS RISHI METAB OLIC PANEL aspartate aminotransfe rase 28 U/L 15-46 Not Available [facility] (Lab) [address] [place], [address], 06/02/2024 18:08:50 06/02/20 24 06/02/2024 COMPR EHENS RISHI METAB OLIC PANEL bilirubin, total 1.10 mg/dL 0.20-1 .30 Not Available [facility] (Lab) [address] [place], [address], 06/02/2024 18:08:50 06/02/20 24 06/02/2024 COMPR EHENS RISHI METAB OLIC PANEL calcium 10.3 mg/dL 8.4-10 .2 high Not Available [facility] (Lab) [address] [place], [address], 06/02/2024 18:08:50 06/02/20 24 06/02/2024 COMPR EHENS RISHI METAB OLIC PANEL total protein 7.0 g/dL 6.3-8. 2 Not Available [facility] (Lab) [address] [place], [address], 06/02/2024 18:08:50 06/02/20 24 06/02/2024 COMPR EHENS RISHI METAB OLIC PANEL albumin 4.1 g/dL 3.4-5. 0 Not Available [facility] (Lab) [address] [place], [address], 06/02/2024 18:08:50 06/02/20 24 06/02/2024 COMPR EHENS RISHI METAB OLIC PANEL globulin 2.9 g/dL 2.6-4. 2 Not Available [facility] (Lab) [address] [place], [address], 06/02/2024 18:08:50 06/02/20 24 06/02/2024 COMPR EHENS RISHI METAB OLIC PANEL A/G ratio 1.4 ratio 1.0-2. 0 Not Available [facility] (Lab) [address] [place], [address], 06/02/2024 18:08:50 06/02/2006/02/2024 LIPID PANEL cholesterol 165 mg/dL 140-19 9 NIH GUDELIA NSUS RECOM MENDA TION FOR ELKE STERO L: ADULT CHILD LOW RISK: <200 <170 BORDE RLINE : <200- 239 ----- HIGH RISK: >240 >200 Not Available [facility] (Lab) [address] [place], [address], 06/02/2024 18:08:54 06/02/2006/02/2024 LIPID PANEL triglyceride s 112 mg/dL 0-150 NIH GUDELIA NSUS REPOR T RECOM MENDA TION FOR TRIGL YCERI KARIS: ADULT CHILD LOW RISK: <150 ----- BODER LINE: 150-1 99 ----- HIGH RISK: >200 ----- Not Available [facility] (Lab) [address] [place], [address], 06/02/2024 18:08:54 06/02/2006/02/2024 LIPID PANEL HDL cholesterol 43 mg/dL 40- Not Available [facility] (Lab) [address] [place], [address], 06/02/2024 18:08:54 06/02/2006/02/2024 LIPID PANEL LDL cholesterol, [...] WILL NOT BE REPOR VÍCTOR. Not Available [facility] (Lab) [address] [place], [address], 06/02/2024 18:08:54 06/02/20 24 06/02/2024 TSH W/REF MAGGIE FT4 TSH with reflex free T4 0.863 uIU/m L 0.465- 4.680 Not Available [facility] (Lab) [address] [place], [address], 06/02/2024 18:43:47 06/02/20 24 06/02/2024 PSA SCREE N PSA medicare screen 4.72 NG/mL 0.00-4 .00 high Not Available [facility] (Lab) [address] [place], [address], 06/02/2024 18:43:52 06/19/20 24 06/19/2024 CBC/C OMPLE TE BLD COUNT W/DIF F white blood cells 7.9 x10'3 /uL 4.2-10 .8 Not Available [facility] (Lab) [address] [place], [address], 06/19/2024 16:36:22 06/19/20 24 06/19/2024 CBC/C OMPLE TE BLD COUNT W/DIF F red blood cells 5.20 x10'6 /uL 4.10-5 .80 Not Available [facility] (Lab) [address] [place], [address], 06/19/2024 16:36:22 06/19/20 24 06/19/2024 CBC/C OMPLE TE BLD COUNT W/DIF F hemoglobin 16.7 g/dL 13.2-1 7.0 Not Available [facility] (Lab) [address] [place], [address], 06/19/2024 16:36:22 06/19/20 24 06/19/2024 CBC/C OMPLE TE BLD COUNT W/DIF F hematocrit 50.4 % 39.3-5 0.0 high Not Available [facility] (Lab) [address] [place], [address], 06/19/2024 16:36:22 06/19/20 24 06/19/2024 CBC/C OMPLE TE BLD COUNT W/DIF F mean red cell volume 96.9 fL 80.0-9 7.0 Not Available [facility] (Lab) [address] [place], [address], 06/19/2024 16:36:22 06/19/20 24 06/19/2024 CBC/C OMPLE TE BLD COUNT W/DIF F mean red cell hemoglobin 32.1 pg 27.0-3 3.0 Not Available [facility] (Lab) [address] [place], [address], 06/19/2024 16:36:22 06/19/20 24 06/19/2024 CBC/C OMPLE TE BLD COUNT W/DIF F mean RBC HGB concentratio n 33.1 g/dL 31.0-3 6.0 Not Available [facility] (Lab) [address] [place], [address], 06/19/2024 16:36:22 06/19/20 24 06/19/2024 CBC/C OMPLE TE BLD COUNT W/DIF F red cell distribution width 13.2 % 11.8-1 5.5 Not Available [facility] (Lab) [address] [place], [address], 06/19/2024 16:36:22 06/19/20 24 06/19/2024 CBC/C OMPLE TE BLD COUNT W/DIF F platelets 247 x10'3 /uL 150-40 0 Not Available [facility] (Lab) [address] [place], [address], 06/19/2024 16:36:22 06/19/20 24 06/19/2024 CBC/C OMPLE TE BLD COUNT W/DIF F mean platelet volume 9.6 fL 9.0-12 .4 Not Available [facility] (Lab) [address] [place], [address], 06/19/2024 16:36:22 06/19/20 24 06/19/2024 CBC/C OMPLE TE BLD COUNT W/DIF F neutrophils 63.8 % 39.0-7 2.0 Not Available [facility] (Lab) [address] [place], [address], 06/19/2024 16:36:22 06/19/20 24 06/19/2024 CBC/C OMPLE TE BLD COUNT W/DIF F lymphocytes 20.8 % 16.0-4 7.0 Not Available [facility] (Lab) [address] [place], [address], 06/19/2024 16:36:22 06/19/20 24 06/19/2024 CBC/C OMPLE TE BLD COUNT W/DIF F monocytes 10.3 % 5.0-12 .0 Not Available [facility] (Lab) [address] [place], [address], 06/19/2024 16:36:22 06/19/20 24 06/19/2024 CBC/C OMPLE TE BLD COUNT W/DIF F eosinophils 3.6 % 1.0-7. 0 Not Available [facility] (Lab) [address] [place], [address], 06/19/2024 16:36:22 06/19/20 24 06/19/2024 CBC/C OMPLE TE BLD COUNT W/DIF F basophils 1.0 % 0.0-2. 0 Not Available [facility] (Lab) [address] [place], [address], 06/19/2024 16:36:22 06/19/20 24 06/19/2024 CBC/C OMPLE TE BLD COUNT W/DIF F immature granulocytes 0.5 % 0.00-0 .50 Not Available [facility] (Lab) [address] [place], [address], 06/19/2024 16:36:22 06/19/20 24 06/19/2024 CBC/C OMPLE TE BLD COUNT W/DIF F neutrophils, absolute count 5.02 x10'3 /uL 1.5-8. 0 Not Available [facility] (Lab) [address] [place], [address], 06/19/2024 16:36:22 06/19/20 24 06/19/2024 CBC/C OMPLE TE BLD COUNT W/DIF F lymphocytes, absolute count 1.64 x10'3 /uL 1.07-3 .43 Not Available [facility] (Lab) [address] [place], [address], 06/19/2024 16:36:22 06/19/20 24 06/19/2024 CBC/C OMPLE TE BLD COUNT W/DIF F monocytes, absolute count 0.81 x10'3 /uL 0.29-0 .99 Not Available [facility] (Lab) [address] [place], [address], 06/19/2024 16:36:22 06/19/20 24 06/19/2024 CBC/C OMPLE TE BLD COUNT W/DIF F eosinophils, absolute count 0.28 x10'3 /uL 0.02-0 .53 Not Available [facility] (Lab) [address] [place], [address], 06/19/2024 16:36:22 06/19/20 24 06/19/2024 CBC/C OMPLE TE BLD COUNT W/DIF F basophils, absolute count 0.08 x10'3 /uL 0.01-0 .08 Not Available [facility] (Lab) [address] [place], [address], 06/19/2024 16:36:22 06/19/20 24 06/19/2024 CBC/C OMPLE TE BLD COUNT W/DIF F immature granulocytes ,absolute 0.04 x10'3 /uL 0.00-0 .05 Not Available [facility] (Lab) [address] [place], [address], 06/19/2024 16:36:22 06/19/20 24 06/19/2024 CBC/C OMPLE TE BLD COUNT W/DIF F nucleated red blood cells 0.0 % -0 Not Available [facility] (Lab) [address] [place], [address], 06/19/2024 16:36:22 06/19/20 24 06/19/2024 CBC/C OMPLE TE BLD COUNT W/DIF F NRBC# 0.00 x10'3 /uL Not Available [facility] (Lab) [address] [place], [address], 06/19/2024 16:36:22 06/19/20 24 06/19/2024 COMPR EHENS RISHI METAB OLIC PANEL sodium 142 mmol/ L 137-14 5 Not Available [facility] (Lab) [address] [place], [address], 06/19/2024 16:41:25 06/19/20 24 06/19/2024 COMPR EHENS RISHI METAB OLIC PANEL potassium 5.1 mmol/ L 3.5-5. 1 Not Available [facility] (Lab) [address] [place], [address], 06/19/2024 16:41:25 06/19/20 24 06/19/2024 COMPR EHENS RISHI METAB OLIC PANEL chloride 104 mmol/ L 98-107 Not Available [facility] (Lab) [address] [place], [address], 06/19/2024 16:41:25 06/19/20 24 06/19/2024 COMPR EHENS RISHI METAB OLIC PANEL carbon dioxide 28 mmol/ L 22-30 Not Available [facility] (Lab) [address] [place], [address], 06/19/2024 16:41:25 06/19/20 24 06/19/2024 COMPR EHENS RISHI METAB OLIC PANEL anion gap 15.1 mmol/ L 14-22 Not Available [facility] (Lab) [address] [place], [address], 06/19/2024 16:41:25 06/19/20 24 06/19/2024 COMPR EHENS RISHI METAB OLIC PANEL glucose 93 mg/dL 70-99 Not Available [facility] (Lab) [address] [place], [address], 06/19/2024 16:41:25 06/19/20 24 06/19/2024 COMPR EHENS RISHI METAB OLIC PANEL BUN 12 mg/dL 8-19 Not Available [facility] (Lab) [address] [place], [address], 06/19/2024 16:41:25 06/19/20 24 06/19/2024 COMPR EHENS RISHI METAB OLIC PANEL creatinine 0.95 mg/dL 0.66-1 .25 Not Available [facility] (Lab) [address] [place], [address], 06/19/2024 16:41:25 06/19/20 24 06/19/2024 COMPR EHENS RISHI METAB OLIC PANEL GFR >60 Refer ence Range : [place] ge GFR Healt hy Adult : >60 [...] calcu lator is avail able on the [facility] websi te: https ://ww w.kid girma.o rg/pr ofess ional s/kdo qi/gf r_cal culat or Not Available [facility] (Lab) [address] [place], [address], 06/19/2024 16:41:25 06/19/20 24 06/19/2024 COMPR EHENS RISHI METAB OLIC PANEL alkaline phosphatase 112 U/L 38-126 Not Available [facility] (Lab) [address] [place], [address], 06/19/2024 16:41:25 06/19/20 24 06/19/2024 COMPR EHENS RISHI METAB OLIC PANEL alanine aminotransfe rase 23 U/L 0-50 Not Available [facility] (Lab) [address] [place], [address], 06/19/2024 16:41:25 06/19/20 24 06/19/2024 COMPR EHENS RISHI METAB OLIC PANEL aspartate aminotransfe rase 32 U/L 15-46 Not Available [facility] (Lab) [address] [place], [address], 06/19/2024 16:41:25 06/19/20 24 06/19/2024 COMPR EHENS RISHI METAB OLIC PANEL bilirubin, total 0.70 mg/dL 0.20-1 .30 Not Available [facility] (Lab) [address] [place], [address], 06/19/2024 16:41:25 06/19/20 24 06/19/2024 COMPR EHENS RISHI METAB OLIC PANEL calcium 9.8 mg/dL 8.4-10 .2 Not Available [facility] (Lab) [address] [place], [address], 06/19/2024 16:41:25 06/19/20 24 06/19/2024 COMPR EHENS RSIHI METAB OLIC PANEL total protein 7.4 g/dL 6.3-8. 2 Not Available [facility] (Lab) [address] [facility] [place], [address], 06/19/2024 16:41:25 06/19/20 24 06/19/2024 COMPR EHENS RISHI METAB OLIC PANEL albumin 4.5 g/dL 3.4-5. 0 Not Available [facility] (Lab) [address] [place], [address], 06/19/2024 16:41:25 06/19/20 24 06/19/2024 COMPR EHENS RISHI METAB OLIC PANEL globulin 2.9 g/dL 2.6-4. 2 Not Available [facility] (Lab) [address] [place], [address], 06/19/2024 16:41:25 06/19/20 24 06/19/2024 COMPR EHENS RISHI METAB OLIC PANEL A/G ratio 1.6 ratio 1.0-2. 0 Not Available [facility] (Lab) [address] [place], [address], 06/19/2024 16:41:25 06/19/20 24 06/19/2024 LIPID PANEL cholesterol 193 mg/dL 140-19 9 NIH GUDELIA NSUS RECOM MENDA TION FOR ELKE STERO L: ADULT CHILD LOW RISK: <200 <170 BORDE RLINE : <200- 239 ----- HIGH RISK: >240 >200 Not Available [facility] (Lab) [address] [place], [address], 06/19/2024 16:41:29 06/19/20 24 06/19/2024 LIPID PANEL triglyceride s 144 mg/dL 0-150 NIH GUDELIA NSUS REPOR T RECOM MENDA TION FOR TRIGL YCERI KARIS: ADULT CHILD LOW RISK: <150 ----- BODER LINE: 150-1 99 ----- HIGH RISK: >200 ----- Not Available [facility] (Lab) [address] [place], [address], 06/19/2024 16:41:29 06/19/20 24 06/19/2024 LIPID PANEL HDL cholesterol 52 mg/dL 40- Not Available [facility] (Lab) [address] [place], [address], 06/19/2024 16:41:29 06/19/20 24 06/19/2024 LIPID PANEL [...] WILL NOT BE REPOR VÍCTOR. Not Available [facility] (Lab) [address] [place], [address], 06/19/2024 16:41:29 06/19/20 24 06/19/2024 TSH W/REF MAGGIE FT4 TSH with reflex free T4 0.603 uIU/m L 0.465- 4.680 Not Available [facility] (Lab) [address] [place], [address], 06/19/2024 17:11:18 04/21/20 24 01/16/2024 CT, angio gram, abdom en + pelvi s, w/ contr ast No observ ation record ed. BARCODE Not Available 2023 13:53:01 06/19/20 24 06/19/2024 US, bladd er No observ ation record ed. [email or web address] [facility] [address], [place], [address], 06/19/2024 15:14:13 10/13/19 25 01/16/2024 US, echoc ardio gram, trans thora cic, compl ete No observ ation record ed. BARCODE Not Available 2024 15:56:49 Result Notes None recorded. Problems Name Problem SNOMED Code Status Onset Date Resolution Date Notes Provider Name and Address Organization Details Recorded Time History of calculus of kidney 150430003 Active 2020 Not Available [employer] 3 06:08:27 Smoker 10326358 Active 2023 Paul Urena MD [address], [address], [place], [address] , [facility] [employer] [facility] 4 15:47:42 Solitary nodule of lung 250003831 Active 2023 Paul Urena MD [address], [address], [place], [address] , [facility] [employer] [facility] 4 15:49:25 Severe chronic obstructive pulmonary disease 605837994 Active 2023 Paul Urena MD [address], [address], [place], [address] , [facility] [employer] [facility] 4 15:54:08 Essential hypertension 31384505 Active 2023 Barbara carlisle MD [address], [address], [place], [address] , [facility] [employer] [facility] 4 18:36:22 Prostate specific antigen above reference range 176863400 Active 2023 Barbara carlisle MD [address], [address], [place], [address] , [facility] 4 14:53:00 Hyperlipidemi a 54440220 Active 2023 Barbara carlisle MD [address] [facility], [address], [address] , [facility] 4 14:55:46 Anxiety 05968079 Active 2023 Reinaldo Arnold MD [address] [facility], [address], [address] , [facility] 4 15:33:08 Benign prostatic hyperplasia with outflow obstruction 077387505 Active 2023 Reinaldo Arnold MD [address] [facility], [address], [address] , [facility] 4 15:41:13 Erythrocytosi s 508122406 Active 2024 Barbara carlisle MD [address] [facility], [address], [address] , [facility] 5 11:29:23 Malignant tumor of lung 896324632 Active 2024 Barbara carlisle MD [address] [facility], [address], [address] , [facility] 5 11:55:45 Adenocarcinom a of lung 988024779 Active 2024 Paul Urena MD [address] [facility], [place] [address], [place], [address] , [facility] 5 15:05:20 Notes:2-D echocardiogram EF 50%, mild [...] catheterization 2023 Transbronchial biopsy 2023 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 Procedures Surgical History Date Name Laterality Status Provider Name and Address Organization Details Recorded Time removal completed Not Available [facility] 08[facility] 05:58:49 Back Surgery completed GISEL Lou Devin [facility] 04/27/2024 15:17:56 [facility] 04/27/2024 15:17:57 Back Surgery completed GISEL Lou Devin [facility] 04/27/2024 15:17:58 Imaging Results Imaging Date Name Status LastModified by Organiz ation Details LastModified Time 01/16/2024 CT, angiogram, abdomen + pelvis, w/ contrast completed BARCODE Information not available 04/21/2024 13:53:01 06/19/2024 US, bladder completed [email or web address] [facility] [address] [facility] [address], [place], [address], 06/19/2024 15:14:13 01/16/2024 US, echocardiogra m, transthoracic [...] Updated DateTime 4 179.07 cm 17.3 kg/m2 84035.2 7 g 96.4 [degF] 72 /min 96 % 96 % 126 mm[Hg] 76 mm[Hg] Natalie Garrison MA [place] [employer] [facility] [employer] 4 09:44:05 Date Recorded Body height Body mass index (BMI) Body weight Body temperature Heart rate Systolic blood pressure Diastolic blood pressure Provider Name and Address Organization Details Last Updated DateTime 4 179.07 cm 18.4 kg/m2 54255.0 1 g 97.4 [degF] 78 /min 120 mm[Hg] 80 mm[Hg] YUGN Sanchez [place] [employer] [facility] [employer] 4 14:34:19 Date Recorded Body height Heart rate Body temperature Body mass index (BMI) Body weight Oxygen saturation Oxygen saturation in Arterial blood by Pulse oximetry Systolic blood pressure Diastolic blood pressure Provider Name and Address Organization Details Last Updated DateTime 4 179.07 cm 90 /min 97.3 [degF] 18.1 kg/m2 33125.8 2 g 96 % 96 % 133 mm[Hg] 87 mm[Hg] Liliana Maynard CMA [facility] 4 15:10:09 Date Recorded Body height Body mass index (BMI) Body weight Body temperature Heart rate Systolic blood pressure Diastolic blood pressure Provider Name and Address Organization Details Last Updated DateTime 5 179.07 cm 18.7 kg/m2 28986.1 9 g 97.7 [degF] 90 /min 124 mm[Hg] 76 mm[Hg] YUNG Sanchez [facility] 5 11:18:21 Date Recorded Body height Body mass index (BMI) Body weight Heart rate Body temperature Oxygen saturation Oxygen saturation in Arterial blood by Pulse oximetry Systolic blood pressure Diastolic blood pressure Provider Name and Address Organization Details Last Updated DateTime 5 179.07 cm 18.7 kg/m2 43120.1 9 g 87 /min 97.5 [degF] 98 % 98 % 116 mm[Hg] 74 mm[Hg] Matilde Tello MA [facility] [employer] [facility] 5 14:41:57 Date Recorded Heart rate Respiratory rate Provider Paula guzmán and Address Organization Details Last Updated DateTime 10/13/2024 87 /min 14 /min Palu Urena MD [address] [place] [address], [address], [facility] 10/13/2024 15:20:53 Social History Question Answer Notes LastModified by Organizat ion Details LastModified Time Tobacco Smoking Status Current Every Day Smoker Not Available [facility] [employer] 10/17/2022 05:55:30 Do You Have An Advance Directive? No [id number].[id number] Information not available 10/17/2022 What Is Your Level Of Alcohol Consumption? Occasional MIGRATION.14518 [id number] Information not available 10/17/2022 What Is Your Level Of Caffeine Consumption? Heavy MIGRATION.55608 71695 Information not available 10/17/2022 How Much Tobacco Do You Chew? None MIGRATION. 67024 Information not available 10/17/2022 In The 14 Days Before Symptom Onset, Have You Had Close Contact With A Laboratory-confir med COVID-19 While That Case Was Ill? No MIGRATION.63678 [id number] Information not available 10/17/2022 In The 14 Days Before Symptom Onset, Have You Had Close Contact With A Person Who Is Under Investigation For COVID-19 While That Person Was Ill? No MIGRATION.05972 34581 Information not available 10/17/2022 Are You Currently Employed? Yes Information not available 10/13/2024 What Type Of Diet Are You Following? REGULAR MIGRATION.71952 63088 Information not available 10/17/2022 Which Illicit Or Recreational Drugs Have You Used? NONE MIGRATION.98476 19753 Information not available 10/17/2022 Do You Or Have You Ever Used E-cigarettes Or Vape? Never Used Electronic Cigarettes MIGRATION.26804 12232 Information not available 10/17/2022 Do You Have An Electrostatic Air Filter? 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 No Information no t available 04/27/2024 Do You Or Have You Ever Used Smokeless Tobacco? Never Used Smokeless Tobacco MIGRATION.84141 41790 Information not available 10/17/2022 How Much Tobacco Do You Smoke? 1 PPD 1.5 Packs Per Day Information not available 10/13/2024 Do You Feel Stressed (tense, Restless, Nervous, Or Anxious, Or Unable To Sleep At Night)? [id number] Information not available 04/27/2024 Do You Use Any Illicit Or Recreational Drugs? No Information not available 10/13/2024 Do You Use Sunscreen Routinely? No MIGRATION.88938 23701 Information not available 10/17/2022 Have You Recently [...] Time What is your exercise level? None [id number].[id number] Information not available 10/17/2022 Mental Status None recorded. Family History Relationship Description Onset Age of this Age Resolved Age Notes LastModified by Organization Details LastModified Time Mother Family history of malignant neoplasm MIGRATION.[id number] Not available 10/17/2022 05:58:51 Mother Aneurysm MIGRATION.259 [id number] Not available 10/17/2022 05:58:51 Maternal Grandfather Family history of malignant neoplasm MIGRATION.160 [id number] Not available 10/17/2022 05:58:52 Medical History Condition Response NERVE DISEASE N BLINDNESS N RHEUMATIC FEVER N KIDNEY STONES N BLADDER PROBLEMS N MRSA N OTHER # 1 N [...] ARTERY DISEASE (CAD) N ADDICTION CONCERNS N Impotence N ENDOMETRIOSIS N USE OF BLOOD THINNERS N SKIN [...] GLAUCOMA N FOOT PROBLEM N DIVERTICULITIS N SLEEP APNEA N CHICKENPOX N INFECTIOUS DISEASE N PROSTATE N HEART ARRHYTHMIA N INSOMNIA N HIGH CHOLESTEROL / HYPERLIPIDEMIA N EYE PROBLEMS N HYPERTHYROIDISM N EDEMA N CHRONIC PAIN SYNDROME N [...] N ALZHEIMER'S DISEASE N Brain Problems N DEMENTIA N HERPES N SEIZURES/EPILEPSY N HEADACHES/MIGRAINES Y VASCULAR DISEASE N PACEMAKER N Blood Disorder N DIZZINESS N HEART DISEASE/HEART PROBLEMS N KIDNEY DISEASE N MULTIPLE SCLEROSIS N CANCER: SPECIFY N CARDIAC ARRHYTHMIA N ATRIAL FIBRILLATION N Gall Stones N PULMONARY EMBOLISM N AUTOIMMUNE DISEASE N Immunizations Vaccine Type Date Status Note Provider Nam e and Address Organization Details Recorded Time pneumococcal polysaccharide PPV23 0 completed Not Available [facility] 10/17/2022 06:18:40 Tdap 0 completed Not Available [facility] 10/17/2022 06:18:40 Influenza, split virus, trivalent, PF 4 completed Barbara Mcdonald MD [address] [place] [address], [place], [address], [facility] [employer] 06/12/2024 23:53:37 Past Encounters Encounter ID Performer Location Encounter Start Date Encounter Closed Date Diagnosis/Indication Diagnosis SNOMED-CT Code Diagnosis ICD10 Code Diagnosis Note [id number] Paul Urena MD [facility] Pulmon[facility] gy [address] [place] [address] 04/27/2024 14:37:02 04/28/2024 15:19:38 Smoker 33503202 F17.218 F17.219 Z87.891 Solitary n odule of lung 490655683 R91.1 Severe chr onic obstructive pulmonary disease 635396125 J44.9 Dyspnea on exertion 6084 5006 R06.09 R05.9 T78.40XA D89.9 [id number] Barbara carlisle MD [facility] Internal Med [facility] [address] [place] [address] 15 [place] [address] 04/30/2024 09:26:00 04/30/2024 10:28:20 Screening - NAD 846930309 Z13.9 C-scope: Get this if not done Get yearly flu shot, get Tdap if not doneCan do shingrix vaccineGet RSV vaccine, can do COVID 19 vaccine RTC in 3 months, do labs Essential hypertension 74393172 I10 [facility] Dr Wells 03/31/2024 , f/u in one month On nifedipine ER 30mg dailyGet labs Chronic ob structive pulmonary disease 94806908 J44.9 SmokerOn Karoline Larios n odasaf of lung 287519467 R91.1 Dr Urena 04/27/2024 Referred to thoracic surgeon by Dr Starr referred to Dr Urena Screening for malignant neoplasm of prostate 265666102 Z12.5 Screening for malignant neoplasm of colon 045286122 Z12.11 [id number] Barbara carlisle MD [facility] Internal Med [facility] [address] [facility], [facility] [address] [place] [address] 06/04/2024 14:22:36 06/04/2024 15:16:16 Screening - NAD 714485592 Z13.9 C-scope: Get this if not done Get yearly flu shot, get Tdap if not doneCan do shingrix vaccineGet RSV vaccine, can do COVID 19 vaccine RTC in 3 months, do labs, ER if worse, he did verbalize his understand ing of the above Essential hypertension 06930071 I10 [facility] 03/04/[address] [facility] [address] Wells 03/31/2024 , f[facility] Wells 04/27/2024 , f/u in 6 months On nifedipine ER 30mg dailyGet labs Chronic ob structive pulmonary disease 79539953 J44.9 Alice Larios n odasaf of lung 205872187 R91.[address] 03/12/2204 Dr Urena 04/27/2024 Referred to thoracic surgeon by Dr Urena, Dr Shon Kingsley referred to Dr Urena Screening for malignant neoplasm of colon 453255441 Z12.11 Prostate s pecific antigen above reference range 870656227 R97.20 Get a referral to urologist Hyperkalemia 46676844 E8 7.5 Repeat the K level Hyperlipidemia 12733791 E78.5 More diet and exerciseHe has declined any meds as he feels that this is 'borderlin e'Repeat the labs Administra tion of influenza vaccine 46057750 Z23 [id number] Reinaldo Arnold MD [facility] [address] [facility] [address] [place] [address] 06/19/2024 14:58:36 06/19/2024 15:58:08 Prostate specific antigen above reference range 232150431 R97.20 Anxiety 49561321 F41.9 Benign pro static hyperplasia with outflow obstruction 957449669 N40.1 [id number] Barbara carlisle MD [facility] Internal Med [facility] [address] [facility] [address] [place] [address] 10/13/2024 10:59:33 10/13/2024 11:56:30 Screening - NAD 200422280 Z13.9 C-scope: Get this if not done, referred 10/13/2024 Get yearly flu shot, get Tdap if not doneCan do shingrix vaccineGet RSV vaccine, can do COVID 19 vaccine RTC in 3 months, do labs, ER if worse, he did verbalize his understand ing of the above Essential hypertension 88423785 I10 [facility] 03/04/[address] [facility] [address] Wells 03/31/2024 , f[facility]u [facility] Dr Wells 04/27/2024 , f/u in 6 months On nifedipine ER 30mg daily renewed 10/13/2024 Get labs Chronic ob structive pulmonary disease 98536244 J44.9 SmokerOn Karoline n Sriram s Dr Ayanna Larios n odule of lung 565696883 R91.[address] 03/12/2204 Dr Urena 04/27/2024 Referred to thoracic surgeon by Dr Urena, Dr Shon Kingsley referred to Dr Ayanna Lindquist 07/10/2024 , referred to Dr Valderrama, as per Dr Lindquist 10/13/2024 , to get SBRT treatmentH e should see Dr Lindquist Screening for malignant neoplasm of colon 650014287 Z12.11 Prostate s pecific antigen above reference range 150953872 R97.20 Get a referral to urologist Hyperlipidemia 94130450 E78.5 More diet and exerciseHe has declined any meds as he feels that this is 'borderlin e'Repeat the labs Erythrocytosis 773666026 D75.[address] Lindquist Nausea and vomiting 1693 1999 R11.2 Will get on zofranWill do CT A/P with oncology, did personally speak with Dr Lindquist, today regarding his care Malignant tumor of lung 684824916 C34.90 S/p visit with Dr Vela/p radiaton Rx Dr Valderrama, now will have a follow up with Dr Lindquist again [id number] Paul Urena MD [facility] Pulmonolo gy [address] [address] 10/13/2024 14:21:47 10/13/2024 15:24:35 Smoker 37378218 F17.218 F17.219 Z87.891 Severe chr onic obstructive pulmonary disease 095927893 J44.9 Adenocarci noma of lung 416116194 C34.90 Health Concerns Section Related Observation LastModified by Organization Detai ls LastModified Time None Recorded Concern Status LastModified by Organization Details LastModified Time None Recorded Advance Directives Directive N: Payers Encounter Date Sequence Insurance Name Policy Number Policy Martin Covered Member ID Martin Member ID Guarantor Name 04/30/2024 1 [facility] [id number] Prosper Arzola West [id number] Prosper L West 06/04/2024 1 [facility] [id number] Prosper L West [id number] Prosper L West 06/19/2024 1 [facility] [id number] Prosper L West [id number] Prosper L West 10/13/2024 1 [facility] [id number] Prosper L West [id number] Prosper L West 10/13/2024 1 [facility] [id number] Prosper L West [id number] Prosper Arzola West Notes Date Note Type Note Provider Name and Address Organization Details Recorded Time 04/30/2024 text/html OV 04/30/2024:He re to establish care Present hx:HTNCOPDLung nodule Here to discuss above, states that he was seen by Dr Urena and the registered dietetic technician, did have a PET CT and is now referred to more testing Barbara Mcdonald MD [address], [address], [place], [address], [employer] [facility] 05/04/2024 17:39:02 06/04/2024 text/html OV 04/30/2024:He re to establish care Present hx:HTNCOPDLung nodule Here to discuss above, states that he was seen by Dr Urena and the registered dietetic technician, did have a PET CT and is now referred to more testing OV 06/04/2024: Here for his f/u apt, he is doing well, he did do the labs on 06/02/2024 Barbara Mcdonald MD [address], [place], [address], [employer] [facility] [employer] [facility] 06/12/2024 23:55:15 06/19/2024 text/html this patient has [...] gross hematuria. Reinaldo Arnold MD [address], [place], [address], [facility] [employer] [facility] [employer] [facility] 07/08/2024 17:41:34 10/13/2024 text/html Primary care/Referring provider: [...] cold airAlleviating factors: rest Modified [employer] [place] (mMRC) Dyspnea Scale - Grade 2Grade 0 [...] history: Albuterol HFA as needed since 02/2024 [facility] 160/9/4.8 mcg 2 puffs BID [...] Urena MD [address], [place], [address], [employer] [facility] 10/13/2024 15:21:11 10/13/2024 text/html OV 04/30/2024:He re to establish care Present hx:HTNCOPDLung nodule Here to discuss above, states that he was seen by Dr Urena and the registered dietetic technician, did have a PET CT and is [...] Mcdonald MD [address], [place], [address], [employer] 10/13/2024 12:03:48
[2024-11-27 12:13] VITALS: BP 123/84; PULSE 88; RESP 20; TEMP 36.1; O2SAT 100; BMI 17.6
[2024-11-27] MEDS: LACTATED RINGERS 1,000 ML 150 ML IV CONT (12:20)
--- NOTE | 2024-11-27 12:39 | WPDANESEPPF ---
Anes - Initial Pre Proc Eval Procedure: Operation Date: 11/27/24 13:30 Proposed Procedures p Colonoscopy - Jameel Chicas MD Date/Time: 11/27/24 12:39 Surgeon: Jameel Chicas MD Pre Op Diagnosis: Encounter for screening for malignant neoplasm of Patient Data Age: 59 Gender: M Height: 1.8 m Weight: 57.2 kg Last Vital Signs Temp 97 F L 11/27/24 12:13 Pulse 88 11/27/24 12:13 Resp 20 11/27/24 12:13 BP 123/84 11/27/24 12:13 Pulse Ox 100 11/27/24 12:13 O2 Del Method Room Air 11/27/24 12:13 Allergies Allergy/AdvReac Type Severity Reaction Status Date / Time No Known Allergies Allergy Unknown Verified 11/27/24 12:12 Home Medications ?Medication ?Instructions ?Recorded ?Confirmed ?Type Adult Aspirin EC Low Strength 81 mg BYMOUTH DAILY 07/10/24 11/27/24 History nifedipine 20 mg capsule 20 mg PO Q8H 07/10/24 11/27/24 History albuterol sulfate 90 mcg/actuation 1 inh inhalation DAILY PRN 11/20/24 11/20/24 History aerosol inhaler shortness of breath or wheezing tamsulosin 0.4 mg capsule 0.4 mg PO DAILY 11/20/24 11/27/24 History Patient hx anesthesia problems: none Family hx anesthesia problems: none Results Review: All pre-operative results and documents have been reviewed as part of the pre-operative evaluation. [facility] Past Medical History Medical History (Updated 08/04/24 @ 15:25 by Ryder Valderrama MD) Primary lung cancer Social History Social History Smoking packs per day: 2 Smoking cigarettes per day: 40.0 Years smoked: 46 Smoking pack-years: 92.00 Smoking status: Heavy tobacco smoker Second hand tobacco smoke exposure: Yes Gender identity (if verbalized by the patient): Male Spiritual care concerns: No Anes - Eval Final PreProcedure Day of Procedure 11/27/24 12:39 Patient weight: normal Heart: regular rate and rhythm Lungs: clear to auscultation Airway: Mallampati scale class II Neurological: alert and oriented Last oral intake: >/= 8 hours ASA classification: III Emergent: no Anesthetic plan: proceed Anesthesia type and monitoring: general GIVS and standard monitoring Results Review: All pre-operative results and documents have been reviewed as part of the pre-operative evaluation. Informed Consent: The patient's anesthetic plan and its attendant risks and benefits were discussed with the patient/family/POA. Questions were solicited and answers provided to the satisfaction of the patient/family/POA.
--- NOTE | 2024-11-27 13:05 | PM.IMHP ---
H&P: HPI History of Present Illness Date/Time: 11/27/24 13:05 Chief Complaint: screening colonoscopy Narrative: This is the patient's first colonoscopy. There are no GI symptoms and there is no family history of colorectal cancer. Review of Systems Review of Systems: All systems reviewed & are unremarkable except as noted in HPI and below [facility] Past Medical History Medical History (Updated 11/27/24 @ 13:06 by Jameel Chicas MD) Primary lung cancer Social History Social History Smoking packs per day: 2 Smoking cigarettes per day: 40.0 Years smoked: 46 Smoking pack-years: 92.00 Smoking status: Heavy tobacco smoker Second hand tobacco smoke exposure: Yes Gender identity (if verbalized by the patient): Male Spiritual care concerns: No Meds Home Medications and Allergies Home Medications ?Medication ?Instructions ?Recorded ?Confirmed ?Type Adult Aspirin EC Low Strength 81 mg BYMOUTH DAILY 07/10/24 11/27/24 History nifedipine 20 mg capsule 20 mg PO Q8H 07/10/24 11/27/24 History albuterol sulfate 90 mcg/actuation 1 inh inhalation DAILY PRN 11/20/24 11/20/24 History aerosol inhaler shortness of breath or wheezing tamsulosin 0.4 mg capsule 0.4 mg PO DAILY 11/20/24 11/27/24 History Allergies Allergy/AdvReac Type Severity Reaction Status Date / Time No Known Allergies Allergy Unknown Verified 11/27/24 12:12 Vital Signs Vital Signs - 24 hr 11/27/24 12:13 Temperature 97 F L Pulse Rate 88 Respiratory Rate 20 Blood Pressure 123/84 Pulse Oximetry 100 Oxygen Delivery Room Air Exam Const: General: cooperative and healthy appearing Resp: Effort & Inspection: normal respiratory effort and able to speak in complete sentences Auscultation: clear to auscultation bilaterally Cardio: Rate: regular rate Rhythm: regular rhythm GI: Inspection: normal to inspection GI Palp: No No hepatosplenomegaly present Auscultation: normal bowel sounds Rectal Exam: deferred Skin: General skin exam: normal color Psych: Appearance: grossly normal Mental Status: mental status grossly normal Assessment and Plan Assessment and plan (1) Encounter for screening colonoscopy: Code(s): Z12.11 - Encounter for screening for malignant neoplasm of colon Status: Acute Assessment and Plan: The patient is deemed a good candidate for the procedure. Consent signed. Will proceed.
[2024-11-27 14:29] VITALS: BP 104/66; PULSE 60; RESP 27; O2SAT 100
[2024-11-27 14:39] VITALS: BP 122/73; PULSE 55; RESP 20; O2SAT 97
[2024-11-27 14:49] VITALS: BP 130/80; RESP 21; O2SAT 98
[2024-11-27 14:59] VITALS: BP 119/84; RESP 26; O2SAT 98
--- NOTE | 2024-11-27 15:53 | SUR.PREOP ---
1510-Pt had dropped his glasses while getting dressed. Offered to help patient get dressed, but he declined. Shortly after, while putting on his pants, he fell off the stretcher onto the floor, stating that he had hit his head, but not hard and it doesn't hurt . Offered to take him to the ER, but he refused. No scrapes, bruises or bleeding noted. Pt states he's wanting to go home. 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 Asked him to help him out of the truck and to help him in the house when he gets home.
== END 2024-11-27 15:40 | disposition home or self-care (01) ==
PROVIDERS: PCP Internal Medicine; Visit Provider Internal Medicine Gastroenterology
PROC: 0DJD8ZZ Inspection of Lower Intestinal Tract, Via Natural or Artificial Opening Endoscopic (ICD-10-PCS; CPT 45378; principal; 2024-11-27 13:30)
DX: Z12.11 Encounter for screening for malignant neoplasm of colon (principal); D12.3 Benign neoplasm of transverse colon; D12.4 Benign neoplasm of descending colon; D12.5 Benign neoplasm of sigmoid colon; D12.2 Benign neoplasm of ascending colon; K63.5 Polyp of colon; D12.8 Benign neoplasm of rectum; K64.8 Other hemorrhoids; F17.210 Nicotine dependence, cigarettes, uncomplicated; Z79.82 Long term (current) use of aspirin; Z79.51 Long term (current) use of inhaled steroids; Z85.118 Personal history of other malignant neoplasm of bronchus and lung
CPT/HCPCS: 45385; 88305; J2003; J2704; J7120

== ENCOUNTER 2025-01-26 08:47 | Outpatient (CLI) | payer OTHER, SELFPAY ==
--- NOTE | ~2025-01-26 | CT_ITS ---
Clinical Indication: Lung cancer CT Scan of the Chest with Contrast: Technique: Contiguous sections were acquired throughout the chest after intravenous administration of 75 cc of Omnipaque 350. Dose reduction technique was used on this scan by utilizing automated exposu re control and iterative reconstruction technique. The dose-length product (DLP) was 151.25 mGy-cm. COMPARISON: 10/20/2024 Findings: There is no evidence of any significant mediastinal, hilar or axillary lymphadenopathy. There is no f illing defect in the pulmonary arterial tree to suggest pulmonary embolus. Ascending aortic aneurysm measures 5.3 cm in diameter. No aortic dissection seen. There is no evidence of pleural or pericardial effusion. Advanced upper lobe emphysema with biapical scarring is unchanged from prior exam. Stable small spicu lated nodules at the left lung apex. Stable cavitary nodule in the lingula (axial and 70). Minimal tr ee-in-bud opacities at the anterior basal right lower lobe are similar to prior exam. Images through the upper abdomen reveal dilatation of the suprarenal abdominal aorta to 3.6 cm in bryan meter.. Impression: No interval change from prior exam. Stable cavitary nodule the lingula. Stable small irregular/spicul ated nodules the left lung apex. Advanced emphysema with biapical scarring. Mild tree-in-bud opacities in the anterior, basal right lower lobe, which could reflect small airways infectious process. 5.3 cm ascending aortic aneurysm. 3.6 cm dilatation of the suprarenal abdominal aorta. Reviewed, dictated and finalized at [facility]. Impression: No interval change from prior exam. Stable cavitary nodule the lingula. Stable small irregular/spiculated nodules the left lung apex. Advanced emphysema with biapical scarring. Mild tree-in-bud opacities in the anterior, basal right lower lobe, which could reflect small airways infectious process. 5.3 cm ascending aortic aneurysm. 3.6 cm dilatation of the suprarenal abdominal aorta.
--- OUTSIDE RECORDS SUMMARY | 2025-01-26 09:09 | XMS_ITS | CONTINUITY OF CARE DOCUMENT ---
Author Name gopal herron Address Unknown Organization [facility] Address [address] [place] [address] Phone [phone] Care Team Providers Care Live Truck Technician Name Role Phone Priscilla ANTONIO, Rj Unavailable TATIANA ANTONIO, NII Unavailable [phone] TATIANA ANTONIO, NII Unavailable PROBLEMS Condition Status Date Provider Notes Hyperkalemia active Chiquita Hernandez Abnormal EKG active Constantine Trujillo MD Tobacco abuse active Consatntine Trujillo MD HTN essential active Constantine Trujillo [...] In-person encounter Office Visit Rj Wells MD [facility] Lung cancer - In-person encounter Office Visit Rj Wells MD [facility] - In-person encounter Office Visit Rj Wells MD [facility] Pulmonary nodule, spiculated, left upper lobe, concerning for malignancyCardiology examinationCOPD - In-person encounter Office Visit Rj Wells MD [facility] Pulmonary nodule, spiculated, left upper lobe, concerning for malignancyAscending aorta dilitationAortic regurgitation, severeAbdominal aortic aneurysm, without rupture, unspecifiedTIA - In-person encounter Office Visit Constantine Trujillo MD [facility] Abnormal EKGTobacco abuseHTN essentialh/o Kidney stonesShortness of breath with exertion VITAL SIGNS Date Observation Value Provider Body Mass Index (Ratio) 17.85 kg/m2 Marilee Wells MD blood pressure, diastolic 88 mm[Hg] Shiva [facility] blood pressure, systolic 120 mm[Hg] Amaris danilo [facility] oxygen saturation, oximetry 97 % [facility] 87 /min Pamela [facility] blood pressure, cuff size regular Shiva nieves [facility] weight E&M 128 [lb_av] [facility]&M 71 [in_i] [facility] Body Mass Index (Ratio) 17.32 kg/m2 Marilee Wells MD blood pressure, diastolic 90 mm[Hg] Stephen Swan blood pressure, systolic 126 mm[Hg] Fantasma ob Delanot oxygen saturation, oximetry 98 % Emanuel Swan pulse rate 78 /min Emanuel Swan weight E&M 124.2 [lb_av] Emanuel Wickt height E&M 71 [in_i] [facility] Body Mass Index (Ratio) 16.87 kg/m2 [...] Zaira Belcher height E&M 71 [in_i] Zaira Talmage Body Mass Index (Ratio) 17.29 kg/m2 Marilee [...] Payer name Policy type / Coverage type [employer] [id number] ADVANCE DIRECTIVES Name Date DISCUSSED - NO [...] L W/EGFR PET/CT Whole Body DLCO - 88305 FRC - 11320 FVC - 85121 CT Chest without con trast DLCO - 74600 FRC - 76732 FVC - 43030 Complete Echo HISTORY OF PROCEDURES Procedure Date Procedure Name Provider Procedure Notes S tatus Complex e/m visit add on Rj Wells MD completed Complex e/m visit add on Rj Wells MD completed Complex e/m visit add on Rj Wells MD completed EKG Rj Wells MD complet ed EKG Constantine Trujillo MD completed
--- OUTSIDE RECORDS SUMMARY | 2025-01-26 09:09 | XMS_ITS | Data Portability ---
Author Organization [place] - [facility], Main Office Address [address] [place] [address] Care Team Providers Care Die Drawing Checker Name Role Phone BARBARA MCDONALD Primary Care Provider [phone] BARBARA MCDONALD Referring Provider PAUL URENA Mainframe Programmer Analyst JINA COREAS Rehabilitation Liaison [phone] [facility] Side Door Man Assessment Encounter Date Assessment Date Assessment LastModified [...] and November 10. Nicotine cessation counseling provided. [place] for quitting nicotine include getting ready, getting [...] in Quit For Life program Registering at [email or web address] Making a call to 0-369-TFVX-NOW ( ). A strong, clear, personalized message [...] failure or relapse. Patient can enroll in [facility]'s smoking cessation class through [place] [...] patient's capacity limits. In this case, we [id number] min daily walking, 2 days a week [...] Organization Details Last Modified Time Details Appointments Follow Up 30 2024 08:00A Satish Urena MD Not available Not available Not available Lab CMP, serum or plasma [address] (Lab), [address] [place], [address], 10/15/2024 10:04:14 lipid panel, serum [address] (Lab), [address] [place], [address], 10/15/2024 10:04:14 CBC w/ auto diff [address] (Lab), [address] [place], [address], 10/15/2024 10:04:14 TSH, serum or plasma [address] (Lab), [address] [place], [address], 10/15/2024 10:04:14 potassium , serum or plasma [address] (Lab), [address] [place], [address], 12/10/2024 09:29:38 CMP, serum or plasma 2023 024 [facility] (Lab), [address] [place], [address], 06/19/2024 16:41:25 lipid panel, serum 2023 024 [facility] (Lab), [address] [place], [address], 06/19/2024 16:41:29 CBC w/ auto diff 2023 024 [facility] (Lab), [address] [place], [address], 06/19/2024 16:36:22 TSH, serum or plasma 2023 024 [facility] (Lab), [address] [place], [address], 06/19/2024 17:11:19 PSA, total, serum or plasma 2023 024 [facility] (Lab), [address] [place], [address], 06/02/2024 18:43:52 CMP, serum or plasma 2023 024 [facility] (Lab), [address] [place], [address], 06/02/2024 18:08:50 lipid panel, serum 2023 024 [facility] (Lab), [address] [place], [address], 06/02/2024 18:08:54 CBC w/ auto diff 2023 024 [facility] (Lab), [address] [place], [address], 06/02/2024 17:50:24 TSH, serum or plasma 2023 024 [facility] (Lab), [address] [place], [address], 06/02/2024 18:43:47 Referral pulmonolo gist referral 2024 025 [email or web address] Paul Urena MD, [address] [place], [address], 10/13/2024 17:46:32 urologist referral - Please call patient to schedule an appointme nt. Thank you. 2024 025 [facility] [address], [place], [address], 10/29/2024 13:35:28 hematolog ist/oncol ogist referral - Please call patient to schedule an appointme nt. Thank you. 2024 025 [email or web address] Hilton Lindquist MD, [address], [place], [address], 01/13/2025 08:49:21 cardiolog ist referral 2024 025 [email or web address] Nhi Wells, [address] , [facility] [address], [place], [address], 10/14/2024 09:56:30 pulmonolo gist referral 2023 024 Paul Urena MD, [address] [place], [address], 06/04/2024 18:39:49 urologist referral 2023 024 TROY Arnold, [address] [facility] [address], [address], 06/19/2024 15:55:24 hematolog ist/oncol ogist referral 2023 024 Hilton Lindquist MD, [address], [place], [address], 07/02/2024 16:01:23 cardiolog ist referral 2023 024 [email or web address] Nhi Wells, [address] , [facility] [address], [address], 06/04/2024 18:39:22 hematolog ist/oncol ogist referral 2023 024 Hilton Lindquist MD, [address], [place], [address], 05/05/2024 09:14:45 cardiolog ist referral 2023 024 [email or web address] Nhi Covarrubias Priscilla, [address], [address], [place], [address], 05/05/2024 09:15:36 pulmonolo gist referral 2023 024 [email or web address] Paul Urena MD, [address] [place], [address], 05/05/2024 09:15:21 Procedures colonosco py screening (PROC) - Please call patient to schedule an appointme nt. Thank you. 2024 025 [email or web address] Aleksey Mercado MD, [address] [facility] [address], [place], [address], 11/11/2024 08:40:56 colonosco py screening (PROC) - Please call patient to schedule. 2023 024 [email or web address] Jina Coreas MD, [address] [facility], [facility] [address], [place], [address], 06/04/2024 18:36:40 colonosco py screening (PROC) - Please call patient to schedule. 2023 024 [email or web address] Jina Coreas MD, [address] [facility], [facility] [address], [place], [address], 12/07/2024 08:46:22 Surgeries None recorded. Imaging US, bladder 2023 024 [email or web address] [facility], [address] [facility] [address], [place], [address], 06/19/2024 15:58:09 Medication Orders albuterol sulfate HFA 90 mcg/actua tion aerosol inhaler 2024 025 [id number], [address] [place], [place], [id number], 10/13/2024 15:02:43 Breztri Aerospher e 160 mcg-9mcg- 4.8mcg/ac tuation HFA aerosol inhaler 2024 025 [facility] #[id number], [address] [place], [place], [id number], 10/13/2024 15:02:42 ondansetr on 4 mg disintegr ating tablet 2024 [facility] #[id number], [address] [place], [place], [id number], 10/13/2024 11:57:21 nifedipin e ER 30 mg tablet,ex tended release 2024 [facility] #[id number], [address] [place], [place], [id number], 10/13/2024 11:57:21 ciproflox acin 500 mg tablet [address], [address] [place], [place], [id number], 10/13/2024 11:15:11 tamsulosi n 0.4 mg capsule 2023 024 [facility] #67346, [address] [place], [place], [id number], 06/19/2024 15:41:41 alprazola m 1 mg tablet [address]68047, [address] [place], [place], [id number], 10/13/2024 11:15:55 Breztri Aerospher e 160 mcg-9mcg- 4.8mcg/ac tuation HFA aerosol inhaler 2023 024 [facility] #[id number], [address] [place], [place], [id number], 06/04/2024 15:06:52 Patient TargetsNo targets recorded. Patient Instructions Encounter Date Encounter Id Patient Instructions Last Modified By Organization Details Last Modified Time 06/19/2024 [id number] 1. The patient will be scheduled in [...] transperineal [email or web address] Not available 07/08/2024 17:41:29 10/13/2024 [id number] complete PFT w/ post bronchodilator spirometry* Not available 10/13/2024 15:02:37 Reason for Referral Mainframe Programmer Analyst Referral for C hronic obstructive pulmonary disease Referring Physician: Barbara Mcdonald Internal Medicine, Encounter Date: 04/30/2024 Side Door Man Referral for Es sential hypertension Referring Physician: Barbara Mcdonald Internal Medicine, Encounter Date: 04/30/2024 Referring Physician: Barbara Mcdonald Internal Medicine, Encounter Date: 04/30/2024 Mainframe Programmer Analyst Referral for C hronic obstructive pulmonary disease Referring Physician: Barbara Mcdonald Internal Medicine, Encounter Date: 06/04/2024 Side Door Man Referral for Es sential hypertension Referring Physician: Barbara Mcdonald Internal Medicine, Encounter Date: 06/04/2024 Referring Physician: Lindsay Long Medicine, Encounter Date: 06/04/2024 Urologist Referral for Prost ate specific antigen above reference range Referring Physician: Barbara Mcdonald Internal Medicine, Encounter Date: 06/04/2024 Mainframe Programmer Analyst Referral for C hronic obstructive pulmonary disease Referring Physician: Barbara Mcdonald Internal Medicine, Encounter Date: 10/13/2024 Side Door Man Referral for Es sential hypertension Referring Physician: Barbara Mcdonald Internal Medicine, Encounter Date: 10/13/2024 Urologist Referral for Prost ate specific antigen above reference range Please call patient to schedule an appointment. Thank you. Referring Physician: Barbara Mcdonald Internal Medicine, Encounter Date: 10/13/2024 Please call patient to sched ule an appointment. Thank you. Referring Physician: Lindsay Long Medicine, Encounter Date: 10/13/2024 Results Created Date Observation Date Name Description Value Unit Range Abnormal Flag Note LastModifiedBy Organization Detail LastModifiedTime 06/02/2006/02/2024 CBC/C OMPLE TE BLD COUNT W/DIF F white blood cells 7.6 x10'3 /uL 4.2-10 .8 Not Available [facility] (Lab) [address] [place], [address], 06/02/2024 17:50:24 06/02/20 24 06/02/2024 CBC/C OMPLE TE BLD COUNT W/DIF F red blood cells 4.97 x10'6 /uL 4.10-5 .80 Not Available [facility] (Lab) [address] [place], [address], 06/02/2024 17:50:24 06/02/20 24 06/02/2024 CBC/C OMPLE TE BLD COUNT W/DIF F hemoglobin 15.8 g/dL 13.2-1 7.0 Not Available [facility] (Lab) [address] [place], [address], 06/02/2024 17:50:24 06/02/20 24 06/02/2024 CBC/C OMPLE TE BLD COUNT W/DIF F hematocrit 46.6 % 39.3-5 0.0 Not Available [facility] (Lab) [address] [place], [address], 06/02/2024 17:50:24 06/02/20 24 06/02/2024 CBC/C OMPLE TE BLD COUNT W/DIF F mean red cell volume 93.8 fL 80.0-9 7.0 Not Available [facility] (Lab) [address] [place], [address], 06/02/2024 17:50:24 06/02/20 24 06/02/2024 CBC/C OMPLE TE BLD COUNT W/DIF F mean red cell hemoglobin 31.8 pg 27.0-3 3.0 Not Available [facility] (Lab) [address] [place], [address], 06/02/2024 17:50:24 06/02/20 24 06/02/2024 CBC/C OMPLE TE BLD COUNT W/DIF F mean RBC HGB concentratio n 33.9 g/dL 31.0-3 6.0 Not Available [facility] (Lab) [address] [place], [address], 06/02/2024 17:50:24 06/02/20 24 06/02/2024 CBC/C OMPLE TE BLD COUNT W/DIF F red cell distribution width 13.2 % 11.8-1 5.5 Not Available [facility] (Lab) [address] [place], [address], 06/02/2024 17:50:24 06/02/20 24 06/02/2024 CBC/C OMPLE TE BLD COUNT W/DIF F platelets 219 x10'3 /uL 150-40 0 Not Available [facility] (Lab) [address] [place], [address], 06/02/2024 17:50:24 06/02/20 24 06/02/2024 CBC/C OMPLE TE BLD COUNT W/DIF F mean platelet volume 8.9 fL 9.0-12 .4 low Not Available [facility] (Lab) [address] [place], [address], 06/02/2024 17:50:24 06/02/20 24 06/02/2024 CBC/C OMPLE TE BLD COUNT W/DIF F neutrophils 63.9 % 39.0-7 2.0 Not Available [facility] (Lab) [address] [place], [address], 06/02/2024 17:50:24 06/02/20 24 06/02/2024 CBC/C OMPLE TE BLD COUNT W/DIF F lymphocytes 23.7 % 16.0-4 7.0 Not Available [facility] (Lab) [address] [place], [address], 06/02/2024 17:50:24 06/02/20 24 06/02/2024 CBC/C OMPLE TE BLD COUNT W/DIF F monocytes 8.7 % 5.0-12 .0 Not Available [facility] (Lab) [address] [place], [address], 06/02/2024 17:50:24 06/02/20 24 06/02/2024 CBC/C OMPLE TE BLD COUNT W/DIF F eosinophils 2.5 % 1.0-7. 0 Not Available [facility] (Lab) [address] [place], [address], 06/02/2024 17:50:24 06/02/20 24 06/02/2024 CBC/C OMPLE TE BLD COUNT W/DIF F basophils 0.7 % 0.0-2. 0 Not Available [facility] (Lab) [address] [place], [address], 06/02/2024 17:50:24 06/02/20 24 06/02/2024 CBC/C OMPLE TE BLD COUNT W/DIF F immature granulocytes 0.5 % 0.00-0 .50 Not Available [facility] (Lab) [address] [place], [address], 06/02/2024 17:50:24 06/02/2006/02/2024 CBC/C OMPLE TE BLD COUNT W/DIF F neutrophils, absolute count 4.82 x10'3 /uL 1.5-8. 0 Not Available [facility] (Lab) [address] [place], [address], 06/02/2024 17:50:24 06/02/20 24 06/02/2024 CBC/C OMPLE TE BLD COUNT W/DIF F lymphocytes, absolute count 1.79 x10'3 /uL 1.07-3 .43 Not Available [facility] (Lab) [address] [place], [address], 06/02/2024 17:50:24 06/02/20 24 06/02/2024 CBC/C OMPLE TE BLD COUNT W/DIF F monocytes, absolute count 0.66 x10'3 /uL 0.29-0 .99 Not Available [facility] (Lab) [address] [place], [address], 06/02/2024 17:50:24 06/02/20 24 06/02/2024 CBC/C OMPLE TE BLD COUNT W/DIF F eosinophils, absolute count 0.19 x10'3 /uL 0.02-0 .53 Not Available [facility] (Lab) [address] [place], [address], 06/02/2024 17:50:24 06/02/20 24 06/02/2024 CBC/C OMPLE TE BLD COUNT W/DIF F basophils, absolute count 0.05 x10'3 /uL 0.01-0 .08 Not Available [facility] (Lab) [address] [place], [address], 06/02/2024 17:50:24 06/02/20 24 06/02/2024 CBC/C OMPLE TE BLD COUNT W/DIF F immature granulocytes ,absolute 0.04 x10'3 /uL 0.00-0 .05 Not Available [facility] (Lab) [address] [place], [address], 06/02/2024 17:50:24 06/02/20 24 06/02/2024 CBC/C OMPLE TE BLD COUNT W/DIF F nucleated red blood cells 0.0 % -0 Not Available [facility] (Lab) [address] [place], [address], 06/02/2024 17:50:24 06/02/20 24 06/02/2024 CBC/C OMPLE TE BLD COUNT W/DIF F NRBC# 0.00 x10'3 /uL Not Available [facility] (Lab) [address] [place], [address], 06/02/2024 17:50:24 06/02/20 24 06/02/2024 COMPR EHENS RISHI METAB OLIC PANEL sodium 140 mmol/ L 137-14 5 Not Available [facility] (Lab) [address] [place], [address], 06/02/2024 18:08:50 06/02/20 24 06/02/2024 COMPR EHENS RISHI METAB OLIC PANEL potassium 5.3 mmol/ L 3.5-5. 1 high Not Available [facility] (Lab) [address] [place], [address], 06/02/2024 18:08:50 06/02/20 24 06/02/2024 COMPR EHENS RISHI METAB OLIC PANEL chloride 105 mmol/ L 98-107 Not Available [facility] (Lab) [address] [place], [address], 06/02/2024 18:08:50 06/02/20 24 06/02/2024 COMPR EHENS RISHI METAB OLIC PANEL carbon dioxide 29 mmol/ L 22-30 Not Available [facility] (Lab) [address] [place], [address], 06/02/2024 18:08:50 06/02/20 24 06/02/2024 COMPR EHENS RISHI METAB OLIC PANEL anion gap 11.3 mmol/ L 14-22 low Not Available [facility] (Lab) [address] [place], [address], 06/02/2024 18:08:50 06/02/20 24 06/02/2024 COMPR EHENS RISHI METAB OLIC PANEL glucose 82 mg/dL 70-99 Not Available [facility] (Lab) [address] [place], [address], 06/02/2024 18:08:50 06/02/20 24 06/02/2024 COMPR EHENS RISHI METAB OLIC PANEL BUN 8 mg/dL 8-19 Not Available [facility] (Lab) [address] [place], [address], 06/02/2024 18:08:50 06/02/20 24 06/02/2024 COMPR EHENS RISHI METAB OLIC PANEL creatinine 1.06 mg/dL 0.66-1 .25 Not Available [facility] (Lab) [address] [place], [address], 06/02/2024 18:08:50 06/02/20 24 06/02/2024 COMPR EHENS RISHI METAB OLIC PANEL GFR >60 Refer ence Range : [place] ge GFR Healt hy Adult : >60 [...] calcu lator is avail able on the [facility] websi te: https ://alicia canas.tru rayo.olga champion/pr ofess ional s/kdo qi/gf r_cal culat or Not Available [facility] (Lab) [address] [place], [address], 06/02/2024 18:08:50 06/02/20 24 06/02/2024 COMPR EHENS RISHI METAB OLIC PANEL alkaline phosphatase 101 U/L 38-126 Not Available [facility] (Lab) [address] [place], [address], 06/02/2024 18:08:50 06/02/20 24 06/02/2024 COMPR EHENS RISHI METAB OLIC PANEL alanine aminotransfe rase 20 U/L 0-50 Not Available [facility] (Lab) [address] [place], [address], 06/02/2024 18:08:50 06/02/20 24 06/02/2024 COMPR EHENS RISHI METAB OLIC PANEL aspartate aminotransfe rase 28 U/L 15-46 Not Available [facility] (Lab) [address] [place], [address], 06/02/2024 18:08:50 06/02/20 24 06/02/2024 COMPR EHENS RISHI METAB OLIC PANEL bilirubin, total 1.10 mg/dL 0.20-1 .30 Not Available [facility] (Lab) [address] [place], [address], 06/02/2024 18:08:50 06/02/20 24 06/02/2024 COMPR EHENS RISHI METAB OLIC PANEL calcium 10.3 mg/dL 8.4-10 .2 high Not Available [facility] (Lab) [address] [place], [address], 06/02/2024 18:08:50 06/02/20 24 06/02/2024 COMPR EHENS RISHI METAB OLIC PANEL total protein 7.0 g/dL 6.3-8. 2 Not Available [facility] (Lab) [address] [place], [address], 06/02/2024 18:08:50 06/02/20 24 06/02/2024 COMPR EHENS RISHI METAB OLIC PANEL albumin 4.1 g/dL 3.4-5. 0 Not Available [facility] (Lab) [address] [place], [address], 06/02/2024 18:08:50 06/02/20 24 06/02/2024 COMPR EHENS RISHI METAB OLIC PANEL globulin 2.9 g/dL 2.6-4. 2 Not Available [facility] (Lab) [address] [place], [address], 06/02/2024 18:08:50 06/02/20 24 06/02/2024 COMPR EHENS RISHI METAB OLIC PANEL A/G ratio 1.4 ratio 1.0-2. 0 Not Available [facility] (Lab) [address] [place], [address], 06/02/2024 18:08:50 06/02/20 24 06/02/2024 LIPID PANEL cholesterol 165 mg/dL 140-19 9 NIH GUDELIA NSUS RECOM MENDA TION FOR ELKE STERO L: ADULT CHILD LOW RISK: <200 <170 BORDE RLINE : <200- 239 ----- HIGH RISK: >240 >200 Not Available [facility] (Lab) [address] [place], [address], 06/02/2024 18:08:54 06/02/20 24 06/02/2024 LIPID PANEL triglyceride s 112 mg/dL 0-150 NIH GUDELIA NSUS REPOR T RECOM MENDA TION FOR TRIGL YCERI KARIS: ADULT CHILD LOW RISK: <150 ----- BODER LINE: 150-1 99 ----- HIGH RISK: >200 ----- Not Available [facility] (Lab) [address] [place], [address], 06/02/2024 18:08:54 06/02/2006/02/2024 LIPID PANEL HDL cholesterol 43 mg/dL 40- Not Available [facility] (Lab) [address] [place], [address], 06/02/2024 18:08:54 06/02/2006/02/2024 LIPID PANEL LDL cholesterol, [...] WILL NOT BE REPOR VÍCTOR. Not Available [facility] (Lab) [address] [place], [address], 06/02/2024 18:08:54 06/02/20 24 06/02/2024 TSH W/REF MAGGIE FT4 TSH with reflex free T4 0.863 uIU/m L 0.465- 4.680 Not Available [facility] (Lab) [address] [place], [address], 06/02/2024 18:43:47 06/02/20 24 06/02/2024 PSA SCREE N PSA medicare screen 4.72 NG/mL 0.00-4 .00 high Not Available [facility] (Lab) [address] [place], [address], 06/02/2024 18:43:52 06/19/20 24 06/19/2024 CBC/C OMPLE TE BLD COUNT W/DIF F white blood cells 7.9 x10'3 /uL 4.2-10 .8 Not Available [facility] (Lab) [address] [place], [address], 06/19/2024 16:36:22 06/19/20 24 06/19/2024 CBC/C OMPLE TE BLD COUNT W/DIF F red blood cells 5.20 x10'6 /uL 4.10-5 .80 Not Available [facility] (Lab) [address] [place], [address], 06/19/2024 16:36:22 06/19/20 24 06/19/2024 CBC/C OMPLE TE BLD COUNT W/DIF F hemoglobin 16.7 g/dL 13.2-1 7.0 Not Available [facility] (Lab) [address] [place], [address], 06/19/2024 16:36:22 06/19/20 24 06/19/2024 CBC/C OMPLE TE BLD COUNT W/DIF F hematocrit 50.4 % 39.3-5 0.0 high Not Available [facility] (Lab) [address] [place], [address], 06/19/2024 16:36:22 06/19/20 24 06/19/2024 CBC/C OMPLE TE BLD COUNT W/DIF F mean red cell volume 96.9 fL 80.0-9 7.0 Not Available [facility] (Lab) [address] [place], [address], 06/19/2024 16:36:22 06/19/20 24 06/19/2024 CBC/C OMPLE TE BLD COUNT W/DIF F mean red cell hemoglobin 32.1 pg 27.0-3 3.0 Not Available [facility] (Lab) [address] [place], [address], 06/19/2024 16:36:22 06/19/20 24 06/19/2024 CBC/C OMPLE TE BLD COUNT W/DIF F mean RBC HGB concentratio n 33.1 g/dL 31.0-3 6.0 Not Available [facility] (Lab) [address] [place], [address], 06/19/2024 16:36:22 06/19/20 24 06/19/2024 CBC/C OMPLE TE BLD COUNT W/DIF F red cell distribution width 13.2 % 11.8-1 5.5 Not Available [facility] (Lab) [address] [place], [address], 06/19/2024 16:36:22 06/19/20 24 06/19/2024 CBC/C OMPLE TE BLD COUNT W/DIF F platelets 247 x10'3 /uL 150-40 0 Not Available [facility] (Lab) [address] [place], [address], 06/19/2024 16:36:22 06/19/20 24 06/19/2024 CBC/C OMPLE TE BLD COUNT W/DIF F mean platelet volume 9.6 fL 9.0-12 .4 Not Available [facility] (Lab) [address] [place], [address], 06/19/2024 16:36:22 06/19/20 24 06/19/2024 CBC/C OMPLE TE BLD COUNT W/DIF F neutrophils 63.8 % 39.0-7 2.0 Not Available [facility] (Lab) [address] [place], [address], 06/19/2024 16:36:22 06/19/20 24 06/19/2024 CBC/C OMPLE TE BLD COUNT W/DIF F lymphocytes 20.8 % 16.0-4 7.0 Not Available [facility] (Lab) [address] [place], [address], 06/19/2024 16:36:22 06/19/20 24 06/19/2024 CBC/C OMPLE TE BLD COUNT W/DIF F monocytes 10.3 % 5.0-12 .0 Not Available [facility] (Lab) [address] [place], [address], 06/19/2024 16:36:22 06/19/20 24 06/19/2024 CBC/C OMPLE TE BLD COUNT W/DIF F eosinophils 3.6 % 1.0-7. 0 Not Available [facility] (Lab) [address] [place], [address], 06/19/2024 16:36:22 06/19/20 24 06/19/2024 CBC/C OMPLE TE BLD COUNT W/DIF F basophils 1.0 % 0.0-2. 0 Not Available [facility] (Lab) [address] [place], [address], 06/19/2024 16:36:22 06/19/20 24 06/19/2024 CBC/C OMPLE TE BLD COUNT W/DIF F immature granulocytes 0.5 % 0.00-0 .50 Not Available [facility] (Lab) [address] [place], [address], 06/19/2024 16:36:22 06/19/20 24 06/19/2024 CBC/C OMPLE TE BLD COUNT W/DIF F neutrophils, absolute count 5.02 x10'3 /uL 1.5-8. 0 Not Available [facility] (Lab) [address] [place], [address], 06/19/2024 16:36:22 06/19/20 24 06/19/2024 CBC/C OMPLE TE BLD COUNT W/DIF F lymphocytes, absolute count 1.64 x10'3 /uL 1.07-3 .43 Not Available [facility] (Lab) [address] [place], [address], 06/19/2024 16:36:22 06/19/20 24 06/19/2024 CBC/C OMPLE TE BLD COUNT W/DIF F monocytes, absolute count 0.81 x10'3 /uL 0.29-0 .99 Not Available [facility] (Lab) [address] [place], [address], 06/19/2024 16:36:22 06/19/20 24 06/19/2024 CBC/C OMPLE TE BLD COUNT W/DIF F eosinophils, absolute count 0.28 x10'3 /uL 0.02-0 .53 Not Available [facility] (Lab) [address] [place], [address], 06/19/2024 16:36:22 06/19/20 24 06/19/2024 CBC/C OMPLE TE BLD COUNT W/DIF F basophils, absolute count 0.08 x10'3 /uL 0.01-0 .08 Not Available [facility] (Lab) [address] [place], [address], 06/19/2024 16:36:22 06/19/20 24 06/19/2024 CBC/C OMPLE TE BLD COUNT W/DIF F immature granulocytes ,absolute 0.04 x10'3 /uL 0.00-0 .05 Not Available [facility] (Lab) [address] [place], [address], 06/19/2024 16:36:22 06/19/20 24 06/19/2024 CBC/C OMPLE TE BLD COUNT W/DIF F nucleated red blood cells 0.0 % -0 Not Available [facility] (Lab) [address] [place], [address], 06/19/2024 16:36:22 06/19/20 24 06/19/2024 CBC/C OMPLE TE BLD COUNT W/DIF F NRBC# 0.00 x10'3 /uL Not Available [facility] (Lab) [address] [place], [address], 06/19/2024 16:36:22 06/19/20 24 06/19/2024 COMPR EHENS RISHI METAB OLIC PANEL sodium 142 mmol/ L 137-14 5 Not Available [facility] (Lab) [address] [place], [address], 06/19/2024 16:41:25 06/19/20 24 06/19/2024 COMPR EHENS RISHI METAB OLIC PANEL potassium 5.1 mmol/ L 3.5-5. 1 Not Available [facility] (Lab) [address] [place], [address], 06/19/2024 16:41:25 06/19/20 24 06/19/2024 COMPR EHENS RISHI METAB OLIC PANEL chloride 104 mmol/ L 98-107 Not Available [facility] (Lab) [address] [place], [address], 06/19/2024 16:41:25 06/19/20 24 06/19/2024 COMPR EHENS RISHI METAB OLIC PANEL carbon dioxide 28 mmol/ L 22-30 Not Available [facility] (Lab) [address] [place], [address], 06/19/2024 16:41:25 06/19/20 24 06/19/2024 COMPR EHENS RISHI METAB OLIC PANEL anion gap 15.1 mmol/ L 14-22 Not Available [facility] (Lab) [address] [place], [address], 06/19/2024 16:41:25 06/19/20 24 06/19/2024 COMPR EHENS RISHI METAB OLIC PANEL glucose 93 mg/dL 70-99 Not Available [facility] (Lab) [address] [place], [address], 06/19/2024 16:41:25 06/19/20 24 06/19/2024 COMPR EHENS RISHI METAB OLIC PANEL BUN 12 mg/dL 8-19 Not Available [facility] (Lab) [address] [place], [address], 06/19/2024 16:41:25 06/19/20 24 06/19/2024 COMPR EHENS RISHI METAB OLIC PANEL creatinine 0.95 mg/dL 0.66-1 .25 Not Available [facility] (Lab) [address] [place], [address], 06/19/2024 16:41:25 06/19/20 24 06/19/2024 COMPR EHENS RISHI METAB OLIC PANEL GFR >60 Refer ence Range : [place] [facility] GFR [facility] hy Adult : >60 [...] calcu lator is avail able on the [facility] websi te: [email or web address] [email or web address] r_cal culat or Not Available [facility] (Lab) [address] [place], [address], 06/19/2024 16:41:25 06/19/20 24 06/19/2024 COMPR EHENS RISHI METAB OLIC PANEL alkaline phosphatase 112 U/L 38-126 Not Available [facility] (Lab) [address] [place], [address], 06/19/2024 16:41:25 06/19/20 24 06/19/2024 COMPR EHENS RISHI METAB OLIC PANEL alanine aminotransfe rase 23 U/L 0-50 Not Available [facility] (Lab) [address] [place], [address], 06/19/2024 16:41:25 06/19/20 24 06/19/2024 COMPR EHENS RISHI METAB OLIC PANEL aspartate aminotransfe rase 32 U/L 15-46 Not Available [facility] (Lab) [address] [place], [address], 06/19/2024 16:41:25 06/19/20 24 06/19/2024 COMPR EHENS RISHI METAB OLIC PANEL bilirubin, total 0.70 mg/dL 0.20-1 .30 Not Available [facility] (Lab) [address] [place], [address], 06/19/2024 16:41:25 06/19/20 24 06/19/2024 COMPR EHENS RISHI METAB OLIC PANEL calcium 9.8 mg/dL 8.4-10 .2 Not Available [facility] (Lab) [address] [place], [address], 06/19/2024 16:41:25 06/19/20 24 06/19/2024 COMPR EHENS RISHI METAB OLIC PANEL total protein 7.4 g/dL 6.3-8. 2 Not Available [facility] (Lab) [address] [place], [address], 06/19/2024 16:41:25 06/19/20 24 06/19/2024 COMPR EHENS RISHI METAB OLIC PANEL albumin 4.5 g/dL 3.4-5. 0 Not Available [facility] (Lab) [address] [place], [address], 06/19/2024 16:41:25 06/19/20 24 06/19/2024 COMPR EHENS RISHI METAB OLIC PANEL globulin 2.9 g/dL 2.6-4. 2 Not Available [facility] (Lab) [address] [place], [address], 06/19/2024 16:41:25 06/19/20 24 06/19/2024 COMPR EHENS RISHI METAB OLIC PANEL A/G ratio 1.6 ratio 1.0-2. 0 Not Available [facility] (Lab) [address] [place], [address], 06/19/2024 16:41:25 06/19/20 24 06/19/2024 LIPID PANEL cholesterol 193 mg/dL 140-19 9 NIH GUDELIA NSUS RECOM MENDA TION FOR ELKE STERO L: ADULT CHILD LOW RISK: <200 <170 BORDE RLINE : <200- 239 ----- HIGH RISK: >240 >200 Not Available [facility] (Lab) [address] [place], [address], 06/19/2024 16:41:29 06/19/20 24 06/19/2024 LIPID PANEL triglyceride s 144 mg/dL 0-150 NIH GUDELIA NSUS REPOR T RECOM MENDA TION FOR TRIGL YCERI KARIS: ADULT CHILD LOW RISK: <150 ----- BODER LINE: 150-1 99 ----- HIGH RISK: >200 ----- Not Available [facility] (Lab) [address] [place], [address], 06/19/2024 16:41:29 06/19/20 24 06/19/2024 LIPID PANEL HDL cholesterol 52 mg/dL 40- Not Available [facility] (Lab) [address] [place], [address], 06/19/2024 16:41:29 06/19/20 24 06/19/2024 LIPID PANEL [...] WILL NOT BE REPOR VÍCTOR. Not Available [facility] (Lab) [address] [place], [address], 06/19/2024 16:41:29 06/19/20 24 06/19/2024 TSH W/REF MAGGIE FT4 TSH with reflex free T4 0.603 uIU/m L 0.465- 4.680 Not Available [facility] (Lab) [address] [place], [address], 06/19/2024 17:11:18 04/21/20 24 01/16/2024 CT, angio gram, abdom en + pelvi s, w/ contr ast No observ ation record ed. BARCODE Not Available 2023 13:53:01 06/19/20 24 06/19/2024 US, bladd er No observ ation record ed. [email or web address] [facility] [address], [place], [address], 06/19/2024 15:14:13 10/13/19 25 01/16/2024 US, echoc ardio gram, trans thora cic, compl ete No observ ation record ed. BARCODE Not Available 2024 15:56:49 Result Notes None recorded. Problems Name Problem SNOMED Code Status Onset Date Resolution Date Notes Provider Name and Address Organization Details Recorded Time History of calculus of kidney 644294940 Active 2020 Not Available [facility] 3 06:08:27 Smoker 43098894 Active 2023 Paul Urena MD [address], [place], [address] , [employer] [facility] [employer] 4 15:47:42 Solitary nodule of lung 192476599 Active 2023 Paul Urena MD [address], [address], [place], [address] , [employer] 4 15:49:25 Severe chronic obstructive pulmonary disease 453493647 Active 2023 Paul Urena MD [address], [place], [address] , [employer] [facility] [employer] 4 15:54:08 Essential hypertension 79487748 Active 2023 Barbara carlisle MD [address], [place], [address] , [employer] [facility] [employer] 4 18:36:22 Prostate specific antigen above reference range 005182042 Active 2023 Barbara carlisle MD [address], [place], [address] , [employer] 4 14:53:00 Hyperlipidemi a 83127209 Active 2023 Barbara carlisle MD [address], [place], [address] , [employer] [place] [employer] [facility] 4 14:55:46 Anxiety 62586746 Active 2023 Reinaldo Arnold MD [address], [place], [address] , [place] [facility] [employer] [facility] 4 15:33:08 Benign prostatic hyperplasia with outflow obstruction 102466876 Active 2023 Reinaldo Arnold MD [address], [place], [address] , [employer] [place] [employer] 4 15:41:13 Erythrocytosi s 108564277 Active 2024 Barbara carlisle MD [address], [place], [address] , [employer] [place] [employer] 5 11:29:23 Malignant neoplasm of lung 212668269 Active 2024 Barbara carlisle MD [address], [place], [address] , [employer] [facility] 5 11:55:45 Adenocarcinom a of lung 240620007 Active 2024 Paul Urena MD [address], [place], [address] , [place] [employer] [facility] 5 15:05:20 Chronic obstructive pulmonary disease 67821159 Active 2024 Barbara carlisle MD [address], [place], [address] , [employer] [place] [employer] [facility] 5 13:20:17 Nausea and vomiting 98713299 Active 2024 Barbara carlisle MD [address], [place], [address] , [place] [employer] 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 Procedures Surgical History Date Name Laterality Status Provider Name and Address Organization Details Recorded Time removal completed Not Available On license of [facility] 08/2022 05:58:49 Back Surgery completed Natalie Garrison MA [facility] 04/27/2024 15:17:56 Back Surgery completed GISEL Lou [facility] 04/27/2024 15:17:57 Back Surgery completed Natalie Garrison MA [facility] 04/27/2024 15:17:58 Imaging Results None recorded. Procedure Notes None recorded. Medical Equipment None [...] active Not Available Not Available Not Avai labandrew Carrolli [employer] 160 mcg-9mcg-4. 8mcg/actuat ion HFA aerosol inhaler INHALE 2 PUFFS BY MOUTH TWICE DAILY active Not Available Not Available No t Available Vitals Date Recorded Heart rate Respiratory rate Provider N arielle and Address Organization Details Last Updated DateTime 10/13/2024 87 /min 14 /min Paul Urena MD [address] [facility], [facility] [address], [place], [address], [facility] [employer] 10/13/2024 15:20:53 Date Recorded Body height Body mass index (BMI) Body weight Body temperature Heart rate Systolic blood pressure Diastolic blood pressure Provider Name and Address Organization Details Last Updated DateTime 5 179.07 cm 18.7 kg/m2 17301.1 9 g 97.7 [degF] 90 /min 124 mm[Hg] 76 mm[Hg] YUNG Sanchez [facility] [employer] 5 11:18:21 Date Recorded Body height Body mass index (BMI) Body weight Heart rate Body temperature Oxygen saturation Oxygen saturation in Arterial blood by Pulse oximetry Systolic blood pressure Diastolic blood pressure Provider Name and Address Organization Details Last Updated DateTime 5 179.07 cm 18.7 kg/m2 43859.1 9 g 87 /min 97.5 [degF] 98 % 98 % 116 mm[Hg] 74 mm[Hg] Matilde Tello MA [facility] [employer] 5 14:41:57 Date Recorded Body height Body mass index (BMI) Body weight Body temperature Heart rate Oxygen saturation Oxygen saturation in Arterial blood by Pulse oximetry Systolic blood pressure Diastolic blood pressure Provider Name and Address Organization Details Last Updated DateTime 4 179.07 cm 17.3 kg/m2 93549.2 7 g 96.4 [degF] 72 /min 96 % 96 % 126 mm[Hg] 76 mm[Hg] Natalie Garrison MA [employer] 4 09:44:05 Date Recorded Body height Body mass index (BMI) Body weight Body temperature Heart rate Systolic blood pressure Diastolic blood pressure Provider Name and Address Organization Details Last Updated DateTime 4 179.07 cm 18.4 kg/m2 55316.0 1 g 97.4 [degF] 78 /min 120 mm[Hg] 80 mm[Hg] YUNG Sanchez [employer] 4 14:34:19 Date Recorded Body height Heart rate Body temperature Body mass index (BMI) Body weight Oxygen saturation Oxygen saturation in Arterial blood by Pulse oximetry Systolic blood pressure Diastolic blood pressure Provider Name and Address Organization Details Last Updated DateTime 4 179.07 cm 90 /min 97.3 [degF] 18.1 kg/m2 71020.8 2 g 96 % 96 % 133 mm[Hg] 87 mm[Hg] Liliana Maynard CMA [employer] 4 15:10:09 Social History Question Answer Notes LastModified by Organizat ion Details LastModified Time Tobacco Smoking Status Current Every Day Smoker Not Available [facility] 10/17/2022 05:55:30 Do You Have An Advance Directive? No [id number] Information not available 10/17/2022 What Is Your Level Of Caffeine Consumption? Heavy [id number].[id number] Information not available 10/17/2022 How Much Tobacco Do You Chew? None MIGRATION.[id number] 6127 Information not available 10/17/2022 In The 14 Days Before Symptom Onset, Have You Had Close Contact With A Laboratory-confir med COVID-19 While That Case Was Ill? No [id number] Information not available 10/17/2022 In The 14 Days Before Symptom Onset, Have You Had Close Contact With A Person Who Is Under Investigation For COVID-19 While That Person Was Ill? No MIGRATION.[id number] Information not available 10/17/2022 What Type Of Diet Are You Following? REGULAR MIGRATION.[id number] Information not available 10/17/2022 Which Illicit Or Recreational Drugs Have You Used? NONE [id number].[id number] 4623 Information not available 10/17/2022 Do You Have An Electrostatic Air Filter? No Information not available 04/27/2024 Do You Have A Humidifier? No Information [...] 14 STARTED SMOKING AROUND 12 YEARS OLD MIGRATION.[id number] Information not available 10/17/2022 Are You Passively Exposed To Smoke? No Information no t available 04/27/2024 How Much Tobacco Do You Smoke? 1 PPD 1.5 Packs Per Day Information not available 10/13/2024 Do You Use Sunscreen Routinely? No MIGRATION.[id number] 7923 Information not available 10/17/2022 Have You Recently Traveled Abroad? No Information not available 04/27/2024 Do You Have Any Dietary Restrictions? No Information not available 04/27/2024 Sex: Unknown Functional Status Question Answer Note LastModified by Organizat ion Details LastModified Time Do you use any illicit or recreational drugs? No Information not available 10/13/2024 Do you or have you ever used any other forms of tobacco or nicotine? No Information not available 06/04/2024 What is your level of alcohol consumption? Occasional MIGRATION.[id number] 0235 Information not available 10/17/2022 Do you or have you ever used smokeless tobacco? Never used smokeless tobacco MIGRATION.[id number] 5988 Information not available 10/17/2022 Are you currently employed? Yes Information not available 10/13/2024 Have you been exposed to chemicals or toxins? No not that aware of Information not available 10/13/2024 What is your occupation? [employer] MIGRATION.280080 5149 Information not available 10/17/2022 Do you or have you ever used e-cigarettes or vape? Never used electronic cigarettes MIGRATION.[id number] 3433 Information not available 10/17/2022 What is your exercise level? None MIGRATION.[id number] 2069 Information not available 10/17/2022 Mental Status Question Answer Note LastModified by Organization D etails LastModified Time Do you feel stressed (tense, restless, nervous, or anxious, or unable to sleep at night)? [id number] Information not available 04/27/2024 Family History Relationship Description Onset Age of this Age Resolved Age Notes LastModified by Organization Details LastModified Time Mother Family history of malignant neoplasm [id number] Not available 10/17/2022 05:58:51 Mother Aneurysm MIGRATION.011 [id number] Not available 10/17/2022 05:58:51 Maternal Grandfather Family history of malignant neoplasm MIGRATION.[id number] Not available 10/17/2022 05:58:52 Medical History Condition Response NERVE DISEASE N BLINDNESS N RHEUMATIC FEVER N KIDNEY STONES N BLADDER PROBLEMS N MRSA N OTHER # 1 N POLIO N LUNG DISEASE/DISORDER N HISTORY OF DRUG ABUSE N RADIATION / CHEMOTHERAPY N COPD N Other # 2 N BLOOD DISEASES N EAR OR HEARING PROBLEMS N MUMPS N SHINGLES N BOWEL PROBLEMS N DEPRESSION (INCLUDING POST ) N STROKE/TIA N ULCERS N BENIGN PROSTATIC [...] pneumococcal polysaccharide PPV23 0 completed Not Available On license of [facility] 10/17/2022 06:18:40 Tdap 0 completed Not Available On license of [facility] 10/17/2022 06:18:40 Influenza, split virus, trivalent, PF 4 completed Barbara Mcdonald MD [address] [place] [address], [place], [address], [facility] [employer] 06/12/2024 23:53:37 Past Encounters Encounter ID Performer Location Encounter Start Date Encounter Closed Date Diagnosis/Indication Diagnosis SNOMED-CT Code Diagnosis ICD10 Code Diagnosis Note [id number] Paul Urena MD [facility] Pulmonolo gy [address] [place] [address] 04/27/2024 14:37:02 04/28/2024 15:19:38 Smoker 80985938 F17.218 F17.219 Z87.891 Solitary n odule of lung 116621792 R91.1 Severe chr onic obstructive pulmonary disease 856561517 J44.9 Dyspnea on exertion 6084 5006 R06.09 R05.9 T78.40XA D89.9 [id number] Barbara carlisle MD [facility] Internal Med [facility] [address] [place] [address], [facility] [address] [place] [address] 04/30/2024 09:26:00 04/30/2024 10:28:20 Screening - NAD 172174531 Z13.9 C-scope: Get this if not done Get yearly flu shot, get Tdap if not doneCan do shingrix vaccineGet RSV vaccine, can do COVID 19 vaccine RTC in 3 months, do labs Essential hypertension 32744410 I10 [facility] Dr Wells 03/31/2024 , f/u in one month On nifedipine ER 30mg dailyGet labs Chronic ob structive pulmonary disease 62758354 J44.9 SmokerOn Karoline Larios n odule of lung 298365018 R91.1 Dr Urena 04/27/2024 Referred to thoracic surgeon by Dr Starr referred to Dr Urena Screening for malignant neoplasm of prostate 828091289 Z12.5 Screening for malignant neoplasm of colon 567930100 Z12.11 [id number] Barbara carlisle MD [facility] Internal [facility] [address] [facility], [facility] [address] [place] [address] 06/04/2024 14:22:36 06/04/2024 15:16:16 Screening - NAD 383625209 Z13.9 C-scope: Get this if not done Get yearly flu shot, get Tdap if not doneCan do shingrix vaccineGet RSV vaccine, can do COVID 19 vaccine RTC in 3 months, do labs, ER if worse, he did verbalize his understand ing of the above Essential hypertension 16995447 I10 [facility] 03/04/2024 [facility] Dr Wells 03/31/2024 , f/u in [facility] Dr Wells 04/27/2024 , f/u in 6 months On nifedipine ER 30mg dailyGet labs Chronic ob structive pulmonary disease 45317332 J44.9 Alice Larios n odule of lung 792600633 R91.[address] 03/12/2204 Dr Urena 04/27/2024 Referred to thoracic surgeon by Dr Urena, Dr Shon Kingsley referred to Dr Urena Screening for malignant neoplasm of colon 008151268 Z12.11 Prostate s pecific antigen above reference range 865730549 R97.20 Get a referral to urologist Hyperkalemia 47615227 E8 7.5 Repeat the K level Hyperlipidemia 50848641 E78.5 More diet and exerciseHe has declined any meds as he feels that this is 'borderlin e'Repeat the labs Administra tion of influenza vaccine 02007890 Z23 [id number] Reinaldo Arnold MD [facility] [place] [address] [facility] [address] [place] [address] 06/19/2024 14:58:36 06/19/2024 15:58:08 Prostate specific antigen above reference range 775302878 R97.20 Anxiety 64496106 F41.9 Benign pro static hyperplasia with outflow obstruction 714249375 N40.1 [id number] Barbara carlisle MD [facility] Internal [facility] [address] [facility] [address] [place] [address] 10/13/2024 10:59:33 10/13/2024 11:56:30 Screening - NAD 553284348 Z13.9 C-scope: Get this if not done, referred 10/13/2024 Get yearly flu shot, get Tdap if not doneCan do shingrix vaccineGet RSV vaccine, can do COVID 19 vaccine RTC in 3 months, do labs, ER if worse, he did verbalize his understand ing of the above Essential hypertension 29648955 I10 [facility] 03/04/[address] [facility] [address] Wells 03/31/2024 , f/u in [facility] Dr Wells 04/27/2024 , f/u in 6 months On nifedipine ER 30mg daily renewed 10/13/2024 Get labs Chronic ob structive pulmonary disease 84034781 J44.9 SmokerOn Karoline n Sriram s Dr Ayanna Larios n odule of lung 038644662 R91.[address] 03/12/2204 Dr Urena 04/27/2024 Referred to thoracic surgeon by Dr Urena, Dr Shon Kingsley referred to Dr Ayanna Lindquist 07/10/2024 , referred to Dr Valderrama, as per Dr Lindquist 10/13/2024 , to get SBRT treatmentH e should see Dr Lindquist Screening for malignant neoplasm of colon 733315711 Z12.11 Prostate s pecific antigen above reference range 573198300 R97.20 Get a referral to urologist Hyperlipidemia 29962328 E78.5 More diet and exerciseHe has declined any meds as he feels that this is 'borderlin e'Repeat the labs Erythrocytosis 388430312 D75.[address] Lindquist Nausea and vomiting 1691999 R11.2 Will get on zofranWill do CT A/P with oncology, did personally speak with Dr Lindquist, today regarding his care Malignant neoplasm of lung 115227887 C34.90 S/p visit with Dr Vela/p radiaton Rx Dr Valderrama, now will have a follow up with Dr Lindquist again [id number] Paul Urena MD [facility] Pulmonolo gy [address] [address] 10/13/2024 14:21:47 10/13/2024 15:24:35 Smoker 77388391 F17.218 F17.219 Z87.891 Severe chr onic obstructive pulmonary disease 131646225 J44.9 Adenocarci noma of lung 213873687 C34.90 Health Concerns Section Related Observation LastModified by Organization Detai ls LastModified Time None Recorded Concern Status LastModified by Organization Details LastModified Time None Recorded Advance Directives Directive N: Payers Encounter Date Sequence Insurance Name Policy Number Policy Martin Covered Member ID Martin Member ID Guarantor Name 04/30/2024 1 [facility] [id number] Prosper Arzola West [id number] Prosper L West 06/04/2024 1 [facility] [id number] Prosper L West [id number] Prosper L West 06/19/2024 1 [facility] [id number] Prosper L West [id number] Prosper L West 10/13/2024 1 [facility] [id number] Prosper L West [id number] Prosper L West 10/13/2024 1 [facility] [id number] Prosper L West [id number] Prosper Arzola West Notes Date Note Type Note Provider Name and Address Organization Details Recorded Time 04/30/2024 text/html OV 04/30/2024:He re to establish care Present hx:HTNCOPDLung nodule Here to discuss above, states that he was seen by Dr Urena and the qa architect, did have a PET CT and is now referred to more testing Barbara Mcdonald MD [address], [place], [address], [facility] [employer] [facility] [employer] [facility] 05/04/2024 17:39:02 06/04/2024 text/html OV 04/30/2024:He re to establish care Present hx:HTNCOPDLung nodule Here to discuss above, states that he was seen by Dr Urena and the qa architect, did have a PET CT and is now referred to more testing OV 06/04/2024: Here for his f/u apt, he is doing well, he did do the labs on 06/02/2024 Barbara Mcdonald MD [address], [place], [address], [facility] [employer] [facility] 06/12/2024 23:55:15 06/19/2024 text/html this patient has [...] Arnold MD [address], [place], [address], [facility] [employer] [facility] 07/08/2024 17:41:34 10/13/2024 text/html Primary care/Referring provider: [...] cold airAlleviating factors: rest Modified Medical Research [employer] [place] [place] ([employer]) Dyspnea Scale - Grade 2Grade 0 [...] history: Albuterol HFA as needed since 02/2024 [facility] 160/9/4.8 mcg 2 puffs BID Other symptoms:Drooling: [...] moderate chance of dozing. Paul Urena MD [address] [place] [address], [place] [address], [place], [address], [facility] [employer] [facility] 10/13/2024 15:21:11 10/13/2024 text/html OV 04/30/2024:He re to establish care Present hx:HTNCOPDLung nodule Here to discuss above, states that he was seen by Dr Urena and the qa architect, did have a PET CT and is [...] food', none today Barbara Mcdonald MD [address] [facility], [address], [place], [address], [facility] [employer] [facility] [employer] [facility] 10/13/2024 12:03:48
--- OUTSIDE RECORDS SUMMARY | 2025-01-26 09:09 | XMS_ITS | Clinical Summary ---
Author Organization [facility] Mallika Paul Address [address] [place] [address] Care Team Providers Care Disc Recordist Name Role Phone Barbara Mcdonald MD Primary [...] Encounters Date Type Department Care Team Description 01/07/2025 External Device Data [facility] ABSTRACTION Provider, Abstract 01/07/2025 External Device Data [facility]CTION Provider, Abstract 01/06/2025 External Device Data [facility]STRACTION Provider, Abstract 01/05/2025 External Device Data [facility]STRACTION Provider, Abstract 11/02/2024 Orders Only [facility] Oncology and Hematology - [place] [address] [place] [address] Hilton Lindquist MD 10/29/2024 2:30 PM CDT Office Visit [facility] On[facility] [address] [place] [address] Hilton Lindquist MD Malignant neoplasm of upper lobe of left lung (CMS/HCC) (Primary Dx) from Last 3 Months Family History Medical [...] 2:44 PM CDT Height 177.8 cm (5' 10) 06/29/2024 2:38 PM CARDIOVASCULAR SURGEON Body Mass Index 18.08 06/29/2024 2:38 PM CARDIOVASCULAR SURGEON Plan of Treatment Upcoming Encounters Date Type Department Care Team (Late st Contact Info) Description 02/03/2025 3:30 PM CDT Office Visit [facility] Oncology [facility] Hemat[facility] [address] [place] [address] Hilton Lindquist MD [address] [facility] [address] [place] [address] Health Maintenance Due Date Last [...] METABOLIC PANEL Routine 10/29/2024 3:44 PM CDT from Last 3 Months Results * COMPREHENSIVE METABOLIC PANEL (10/29/2024 3:44 PM CDT) Blood us Hilton Lindquist MD CHEMISTRY ORDERABLES Final Resu lt from Last 3 Months Insurance LOU MENDES [id number] [id number] Care Teams Disc Recordist Relationship Specialty Start Date End Date Barbara Mcdonald MD PCP - General Internal Medicine 06/10/24
--- OUTSIDE RECORDS SUMMARY | 2025-01-26 09:09 | XMS_ITS | Clinical Summary ---
Author Organization [facility] Address [address] [place] [address] Care Team Providers Care Supervisor [employer] Name Role Phone Barbara Mcdonald MD Primary Care Provider Source Comments [facility],non-owned Affiliates and Associated Physician Practices is amultiple site organization consisting of ambulatory clinics and hospital sitesin [place], [place], [place] and [place]. This disclosure is being madepursuant to the Care Everywhere program and may not contain all information available regarding this patient. Last updated 18.[facility] Allergies No known active allergies Medications * Be aware that medications may not be up to date on this document. Alwaysverify current medications with the patient. NIFEdipine CR osmotic 24hr (Procardia-XL) 30 MG [...] at Not on file Legal Sex Male 8:32 AM CDT Gender Identity Not on file Sexual [...] 11:03 AM CDT Height 179.1 cm (5' 10.5) 05/18/2024 11:03 AM C DT Body Mass [...] on patient's age to complete this topic Insurance [place] [place] [id number] [place] [address] CARE SELF PAY NO INSURANCE Member Subscriber Plan / Payer (Ef fective for All Dates) Name:Duong Dodson Member ID:Not on file Relation to Subscriber:Not on file Name:DUONG DODSON Subscriber ID:Not on file (Home) Address: [address] [place] [address] Payer ID:Not on file Group ID:Not on file Type:Self Pay Address: [facility] Member Subscriber Plan / Payer (Ef fective 2025-Present) Name:Duong Dodson Relation to Subscriber:Self Name:Duong Dodson Payer ID:[id number] (NAIC) Type:HMO Address: [place] [id number] [place] [phone] Care Teams Supervisor [employer] Relationship Specialty Start Date End Date Barbara Mcdonald MD [address] [facility] [address] [place] [id number] PCP - General Internal Medicine 04/29/24
[2025-01-26 09:16] LABS: Estimated Glomerular Filt Rate > 60
== END 2025-01-26 08:48 | disposition home or self-care (01) ==
PROVIDERS: PCP Internal Medicine; Visit Provider Radiology Radiation Oncology
DX: R91.8 Other nonspecific abnormal finding of lung field (principal); J43.9 Emphysema, unspecified; I71.21 Aneurysm of the ascending aorta, without rupture; I71.9 Aortic aneurysm of unspecified site, without rupture; I71.61 Supraceliac aneurysm of the thoracoabdominal aorta, without rupture; C34.90 Malignant neoplasm of unspecified part of unspecified bronchus or lung
CPT/HCPCS: 71260; Q9967

== ENCOUNTER 2025-02-03 15:17 | Outpatient (CLI) | payer OTHER, SELFPAY ==
[2025-02-03 15:31] LABS: Basophils Absolute Auto 0.1 K/mm3 (0.0-0.1); Basophils Percent Auto 0.7 % (0.2-1.2); Eosinophils Absolute Auto 0.2 K/mm3 (0-0.3); Eosinophils Percent Auto 2.3 % (0-4.4); Hemoglobin 14.8 g/dL (14.0-18.0); Immature Granulocyte Absolute 0.04 K/mm3 (0.00-0.031); Immature Granulocyte Percent A 0.5 % (0-0.5); Lymphocytes Absolute Auto 1.39 K/mm3 (0.9-3.2); Lymphocytes Percent Auto 18.9 % (18.3-44.2); Mean Corpuscular HGB Conc 33.6 g/dl (32-36); Mean Corpuscular Hemoglobin 30.8 pg (26-34); Mean Corpuscular Volume 91.5 fl (80-100); Mean Platelet Volume 8.6 fl (7.4-10.4); Monocytes Absolute Auto 0.8 K/mm3 (0.1-0.6); Monocytes Percent Auto 10.6 % (2.6-8.5); Neutrophils Absolute Auto 4.9 K/mm3 (1.3-6.7); Platelet Count Result 212 k/mm3 (150-375); Red Blood Count 4.81 M/mm3 (4.6-6.20); Red Cell Distribution Width 12.5 % (11.5-14.5); White Blood Count 7.4 K/mm3 (4.5-10.0)
[2025-02-03 15:38] LABS: Blood Urea Nitrogen 10 mg/dL (8-26); Carbon Dioxide 26 mmol/L (22-30); Chloride 102 mmol/L (98-109); Estimated Glomerular Filt Rate > 60; Glucose 101 mg/dL (70-105); Ionized Calcium (POC) 1.14 mmol/L (1.11-1.31); Potassium 4.3 mmol/L (3.5-4.9); Sodium 138 mmol/L (138-146)
[2025-02-03 16:55] LABS: Alanine Aminotransferase 13 U/L (6-50); Albumin Level 4.2 g/dL (3.5-5.1); Alkaline Phosphatase 115 U/L (38-126); Anion Gap 7 mmol/L (4-12); Aspartate Amino Transferase 34 U/L (17-59); Bilirubin,Total 0.7 mg/dL (0.2-1.3); Blood Urea Nitrogen 10 mg/dL (9-20); Calcium 9.5 mg/dL (8.4-10.2); Carbon Dioxide 24 mmol/L (22-30); Chloride 105 mmol/L (98-107); Estimated Glomerular Filt Rate > 60; Glucose 101 mg/dL (65-110); Potassium 4.4 mmol/L (3.4-5.0); Sodium 136 mmol/L (137-145); Total Protein 7.5 g/dL (6.3-8.2)
--- OUTSIDE RECORDS SUMMARY | 2025-02-03 17:08 | XMS_ITS | CONTINUITY OF CARE DOCUMENT ---
Author Name gopal herron Address Unknown Organization [facility] Address [address] [place] [address] Phone [phone] Care Team Providers Care Drafter Engineering Name Role Phone Priscilla ANTONIO, Rj Unavailable TATIANA ANTONIO, NII Unavailable TATIANA ANTONIO, NII [...] active Rj Germain Ascending aorta dilitation active jR tyler MD Aortic regurgitation, severe active Rj Wells MD Abdominal aortic aneurysm, w ithout rupture, unspecified active Rj Wells MD TIA active Rj Wells MD Cardiology examination active Rj carlisle MD COPD active Rj Wells MD Lung cancer active Rj Wells MD ENCOUNTERS Date Type Provider Location Encounter Diag nosis - In-person encounter Office Visit Rj Wells MD [facility] Lung cancer - In-person encounter Office Visit Rj Wells MD [facility] - In-person encounter Office Visit Rj Wells MD [facility] Pulmonary nodule, spiculated, left upper lobe, concerning for malignancyCardiology examinationCOPD - In-person encounter Office Visit Rj Wells MD [facility] Pulmonary nodule, spiculated, left upper lobe, concerning for malignancyAscending aorta dilitationAortic regurgitation, severeAbdominal aortic aneurysm, without rupture, unspecifiedTIA - In-person encounter Office Visit Constantine Trujillo MD [facility] Abnormal EKGTobacco abuseHTN essentialh/o Kidney stonesShortness of breath with exertion VITAL SIGNS Date Observation Value Provider Body Mass Index (Ratio) 17.85 kg/m2 Marilee Wells MD blood pressure, diastolic 88 mm[Hg] Shiva [facility] blood pressure, systolic 120 mm[Hg] Amaris danilo [facility] oxygen saturation, oximetry 97 % [facility]min Pamela [facility] blood pressure, cuff size regular Shiva nieves [facility] weight E&M 128 [lb_av] [facility] height E&M 71 [in_i] [facility] Body Mass Index (Ratio) 17.32 [...] Zaira Belcher height E&M 71 [in_i] Zaira [place] Body Mass Index (Ratio) 17.29 kg/m2 Marilee [...] Payer name Policy type / Coverage type [employer] party ID [id number] [id number] ADVANCE DIRECTIVES Name Date DISCUSSED - NO [...] sent to Dr Urena. 6 month f/u. jR Wells MD Cardiology Rj Germain Cardiology Rj [...] L W/EGFR PET/CT Whole Body DLCO - 72832 FRC - 74961 FVC - 78175 CT Chest without con trast DLCO - 81949 FRC - 62874 FVC - 77579 Complete Echo HISTORY OF PROCEDURES Procedure Date Procedure Name Provider Procedure Notes S tatus Complex e/m visit add on Rj Wells MD completed Complex e/m visit add on Rj Wells MD completed Complex e/m visit add on Rj Wells MD completed EKG Rj Wells MD complet ed EKG Constantine Trujillo MD completed
--- OUTSIDE RECORDS SUMMARY | 2025-02-03 17:09 | XMS_ITS | Data Portability ---
Author Organization [place] - [facility] [employer], Main Office Address [address] [place] [address] Care Team Providers Care Rotogravure Press Operator Name Role Phone BARBARA MCDONALD Primary Care Provider BARBARA MCDONALD Referring Provider PAUL URENA Research Assistant Professor JINA COREAS Loss Prevention/Safety District Manager [phone] [facility] Salvage Supervisor Assessment Encounter Date Assessment Date Assessment LastModified [...] and November 10. Nicotine cessation counseling provided. Rawlings for quitting nicotine include getting ready, getting [...] in Quit For Life program Registering at [email or web address] Making a call to 3-123-TPWL-NOW ( ). A strong, clear, personalized message [...] failure or relapse. Patient can enroll in [facility]'s smoking cessation class through America Velásquez RN [...] patient's capacity limits. In this case, we min daily walking, 2 days a week [...] Lab CMP, serum or plasma [address] (Lab), [address] [place], [address], 10/15/2024 10:04:14 lipid panel, serum [address] (Lab), [address] [place], [address], 10/15/2024 10:04:14 CBC w/ auto diff [address] (Lab), [address] [place], [address], 10/15/2024 10:04:14 TSH, serum or plasma [address] (Lab), [address] [place], [address], 10/15/2024 10:04:14 potassium , serum or plasma [address] (Lab), [address] [place], [address], 12/10/2024 09:29:38 CMP, serum or plasma 2023 024 [facility] (Lab), [address] [place], [address], 06/19/2024 16:41:25 lipid panel, serum 2023 024 [facility] (Lab), [address] [place], [address], 06/19/2024 16:41:29 CBC w/ auto diff 2023 024 [facility] (Lab), [address] [place], [address], 06/19/2024 16:36:22 TSH, serum or plasma 2023 024 [facility] (Lab), [address] [place], [address], 06/19/2024 17:11:19 PSA, total, serum or plasma 2023 024 [facility] (Lab), [address] [place], [address], 06/02/2024 18:43:52 CMP, serum or plasma 2023 024 [facility] (Lab), [address] [place], [address], 06/02/2024 18:08:50 lipid panel, serum 2023 024 [facility] (Lab), [address] [place], [address], 06/02/2024 18:08:54 CBC w/ auto diff 2023 024 [facility] (Lab), [address] [place], [address], 06/02/2024 17:50:24 TSH, serum or plasma 2023 024 [facility] (Lab), [address] [place], [address], 06/02/2024 18:43:47 Referral pulmonolo gist referral 2024 025 [email or web address] Paul Urena MD, [address] [place], [address], 10/13/2024 17:46:32 urologist referral - Please call patient to schedule an appointme nt. Thank you. 2024 025 [email or web address] [facility] [address], [place], [address], 01/27/2025 08:57:57 hematolog ist/oncol ogist referral - Please call patient to schedule an appointme nt. Thank you. 2024 025 [email or web address] Hilton Lindquist MD, [address], [place], [address], 01/13/2025 08:49:21 cardiolog ist referral 2024 025 [email or web address] Nhi Wells, [address] , [facility] [address], [place], [address], 10/14/2024 09:56:30 pulmonolo gist referral 2023 024 [email or web address] Paul Urena MD, [address] [place], [address], 06/04/2024 18:39:49 urologist referral 2023 024 TROY Arnold, [address] [facility], [address], 06/19/2024 15:55:24 hematolog ist/oncol ogist referral 2023 024 [email or web address] Hilton Lindquist MD, [address], [place], [address], 07/02/2024 16:01:23 cardiolog ist referral 2023 024 [email or web address] Nhi Wells, [address] , [facility] [address], [address], 06/04/2024 18:39:22 hematolog ist/oncol ogist referral 2023 024 [email or web address] Hilton Lindquist MD, [address], [place], [address], 05/05/2024 09:14:45 cardiolog ist referral 2023 024 [email or web address] Nhi Covarrubias Priscilla, [address], [address], [place], [address], 05/05/2024 09:15:36 pulmonolo gist referral 2023 024 Paul Urena MD, [address] [place], [address], 05/05/2024 09:15:21 Procedures colonosco py screening (PROC) - Please call patient to schedule an appointme nt. Thank you. 2024 025 [email or web address] Aleksey Mercado MD, [address] [facility] [address], [place], [address], 11/11/2024 08:40:56 colonosco py screening (PROC) - Please call patient to schedule. 2023 024 [email or web address] Jina Coreas MD, [address] [facility], [facility] [address], [place], [address], 06/04/2024 18:36:40 colonosco py screening (PROC) - Please call patient to schedule. 2023 024 [email or web address] Jina Coreas MD, [address] [facility], [facility] [address], [place], [address], 12/07/2024 08:46:22 Surgeries None recorded. Imaging US, bladder 2023 024 [email or web address] [facility], [address] [facility] [address], [place], [address], 06/19/2024 15:58:09 Medication Orders albuterol sulfate HFA 90 mcg/actua tion aerosol inhaler 2024 025 [id number], [address] [place], [place], [id number], 10/13/2024 15:02:43 Breztri Aerospher e 160 mcg-9mcg- 4.8mcg/ac tuation HFA aerosol inhaler 2024 025 [facility] #15860, [address] [place], [place], [id number], 10/13/2024 15:02:42 ondansetr on 4 mg disintegr ating tablet 2024 [facility] #26272, [address] [place], [place], [id number], 10/13/2024 11:57:21 nifedipin e ER 30 mg tablet,ex tended release 2024 [facility] #62830, [address] [place], [place], [id number], 10/13/2024 11:57:21 ciproflox acin 500 mg tablet [address], [address] [place], [place], [id number], 10/13/2024 11:15:11 tamsulosi n 0.4 mg capsule 2023 024 [facility] #58799, [address] [place], [place], [id number], 06/19/2024 15:41:41 alprazola m 1 mg tablet [address], [address] [place], [place], [id number], 10/13/2024 11:15:55 Breztri Aerospher e 160 mcg-9mcg- 4.8mcg/ac tuation HFA aerosol inhaler 2023 024 [facility] #87695, [address] [place], [place], [id number], 06/04/2024 15:06:52 Patient TargetsNo targets recorded. Patient Instructions Encounter Date Encounter Id Patient Instructions Last Modified By Organization Details Last Modified Time 06/19/2024 [id number] 1. The patient will be scheduled in [...] transperineal [email or web address] Not available 07/08/2024 17:41:29 10/13/2024 [id number] complete PFT w/ post bronchodilator spirometry* Not available 10/13/2024 15:02:37 Reason for Referral Research Assistant Professor Referral for C hronic obstructive pulmonary disease Referring Physician: Barbara Mcdonald Internal [facility], Encounter Date: 04/30/2024 Salvage Supervisor Referral for Es sential hypertension Referring Physician: Barbara Mcdonald [facility], Encounter Date: 04/30/2024 Referring Physician: Barbara Mcdonald [facility], Encounter Date: 04/30/2024 Research Assistant Professor Referral for C hronic obstructive pulmonary disease Referring Physician: Barbara Mcdonald [facility], Encounter Date: 06/04/2024 Salvage Supervisor Referral for Es sential hypertension Referring Physician: Barbara Mcdonald [facility], Encounter Date: 06/04/2024 Referring Physician: Lindsay Long [facility], Encounter Date: 06/04/2024 Urologist Referral for Prost ate specific antigen above reference range Referring Physician: Barbara Mcdonald [facility], Encounter Date: 06/04/2024 Research Assistant Professor Referral for C hronic obstructive pulmonary disease Referring Physician: Barbara Mcdonald Internal [facility], Encounter Date: 10/13/2024 Salvage Supervisor Referral for Es sential hypertension Referring Physician: [...] 7.6 x10'3 /uL 4.2-10 .8 Not Available [facility] (Lab) [address] [place], [address], 06/02/2024 17:50:24 06/02/20 24 06/02/2024 CBC/C OMPLE TE BLD COUNT W/DIF F red blood cells 4.97 x10'6 /uL 4.10-5 .80 Not Available [facility] (Lab) [address] [place], [address], 06/02/2024 17:50:24 06/02/20 24 06/02/2024 CBC/C OMPLE TE BLD COUNT W/DIF F hemoglobin 15.8 g/dL 13.2-1 7.0 Not Available [facility] (Lab) [address] [place], [address], 06/02/2024 17:50:24 06/02/20 24 06/02/2024 CBC/C OMPLE TE BLD COUNT W/DIF F hematocrit 46.6 % 39.3-5 0.0 Not Available [facility] (Lab) [address] [place], [address], 06/02/2024 17:50:24 06/02/20 24 06/02/2024 CBC/C OMPLE TE BLD COUNT W/DIF F mean red cell volume 93.8 fL 80.0-9 7.0 Not Available [facility] (Lab) [address] [place], [address], 06/02/2024 17:50:24 06/02/20 24 06/02/2024 CBC/C OMPLE TE BLD COUNT W/DIF F mean red cell hemoglobin 31.8 pg 27.0-3 3.0 Not Available [facility] (Lab) [address] [place], [address], 06/02/2024 17:50:24 06/02/20 24 06/02/2024 CBC/C OMPLE TE BLD COUNT W/DIF F mean RBC HGB concentratio n 33.9 g/dL 31.0-3 6.0 Not Available [facility] (Lab) [address] [place], [address], 06/02/2024 17:50:24 06/02/20 24 06/02/2024 CBC/C OMPLE TE BLD COUNT W/DIF F red cell distribution width 13.2 % 11.8-1 5.5 Not Available [facility] (Lab) [address] [place], [address], 06/02/2024 17:50:24 06/02/20 24 06/02/2024 CBC/C OMPLE TE BLD COUNT W/DIF F platelets 219 x10'3 /uL 150-40 0 Not Available [facility] (Lab) [address] [place], [address], 06/02/2024 17:50:24 06/02/20 24 06/02/2024 CBC/C OMPLE TE BLD COUNT W/DIF F mean platelet volume 8.9 fL 9.0-12 .4 low Not Available [facility] (Lab) [address] [place], [address], 06/02/2024 17:50:24 06/02/20 24 06/02/2024 CBC/C OMPLE TE BLD COUNT W/DIF F neutrophils 63.9 % 39.0-7 2.0 Not Available [facility] (Lab) [address] [place], [address], 06/02/2024 17:50:24 06/02/20 24 06/02/2024 CBC/C OMPLE TE BLD COUNT W/DIF F lymphocytes 23.7 % 16.0-4 7.0 Not Available [facility] (Lab) [address] [place], [address], 06/02/2024 17:50:24 06/02/20 24 06/02/2024 CBC/C OMPLE TE BLD COUNT W/DIF F monocytes 8.7 % 5.0-12 .0 Not Available [facility] (Lab) [address] [place], [address], 06/02/2024 17:50:24 06/02/20 24 06/02/2024 CBC/C OMPLE TE BLD COUNT W/DIF F eosinophils 2.5 % 1.0-7. 0 Not Available [facility] (Lab) [address] [place], [address], 06/02/2024 17:50:24 06/02/20 24 06/02/2024 CBC/C OMPLE TE BLD COUNT W/DIF F basophils 0.7 % 0.0-2. 0 Not Available [facility] (Lab) [address] [place], [address], 06/02/2024 17:50:24 06/02/20 24 06/02/2024 CBC/C OMPLE TE BLD COUNT W/DIF F immature granulocytes 0.5 % 0.00-0 .50 Not Available [facility] (Lab) [address] [place], [address], 06/02/2024 17:50:24 06/02/2006/02/2024 CBC/C OMPLE TE BLD COUNT W/DIF F neutrophils, absolute count 4.82 x10'3 /uL 1.5-8. 0 Not Available [facility] (Lab) [address] [place], [address], 06/02/2024 17:50:24 06/02/20 24 06/02/2024 CBC/C OMPLE TE BLD COUNT W/DIF F lymphocytes, absolute count 1.79 x10'3 /uL 1.07-3 .43 Not Available [facility] (Lab) [address] [place], [address], 06/02/2024 17:50:24 06/02/20 24 06/02/2024 CBC/C OMPLE TE BLD COUNT W/DIF F monocytes, absolute count 0.66 x10'3 /uL 0.29-0 .99 Not Available [facility] (Lab) [address] [place], [address], 06/02/2024 17:50:24 06/02/20 24 06/02/2024 CBC/C OMPLE TE BLD COUNT W/DIF F eosinophils, absolute count 0.19 x10'3 /uL 0.02-0 .53 Not Available [facility] (Lab) [address] [place], [address], 06/02/2024 17:50:24 06/02/20 24 06/02/2024 CBC/C OMPLE TE BLD COUNT W/DIF F basophils, absolute count 0.05 x10'3 /uL 0.01-0 .08 Not Available [facility] (Lab) [address] [place], [address], 06/02/2024 17:50:24 06/02/20 24 06/02/2024 CBC/C OMPLE TE BLD COUNT W/DIF F immature granulocytes ,absolute 0.04 x10'3 /uL 0.00-0 .05 Not Available [facility] (Lab) [address] [place], [address], 06/02/2024 17:50:24 06/02/20 24 06/02/2024 CBC/C OMPLE TE BLD COUNT W/DIF F nucleated red blood cells 0.0 % -[address] [facility] (Lab) [address] [place], [address], 06/02/2024 17:50:24 06/02/20 24 06/02/2024 CBC/C OMPLE TE BLD COUNT W/DIF F NRBC# 0.00 x10'3 /uL Not Available [facility] (Lab) [address] [place], [address], 06/02/2024 17:50:24 06/02/20 24 06/02/2024 COMPR EHENS RISHI METAB OLIC PANEL sodium 140 mmol/ L 137-14 5 Not Available [facility] (Lab) [address] [place], [address], 06/02/2024 18:08:50 06/02/20 24 06/02/2024 COMPR EHENS RISHI METAB OLIC PANEL potassium 5.3 mmol/ L 3.5-5. 1 high Not Available [facility] (Lab) [address] [place], [address], 06/02/2024 18:08:50 06/02/20 24 06/02/2024 COMPR EHENS RISHI METAB OLIC PANEL chloride 105 mmol/ L 98-107 Not Available [facility] (Lab) [address] [place], [address], 06/02/2024 18:08:50 06/02/20 24 06/02/2024 COMPR EHENS RISHI METAB OLIC PANEL carbon dioxide 29 mmol/ L 22-30 Not Available [facility] (Lab) [address] [place], [address], 06/02/2024 18:08:50 06/02/20 24 06/02/2024 COMPR EHENS RISHI METAB OLIC PANEL anion gap 11.3 mmol/ L 14-22 low Not Available [facility] (Lab) [address] [place], [address], 06/02/2024 18:08:50 06/02/20 24 06/02/2024 COMPR EHENS RISHI METAB OLIC PANEL glucose 82 mg/dL 70-99 Not Available [facility] (Lab) [address] [place], [address], 06/02/2024 18:08:50 06/02/20 24 06/02/2024 COMPR EHENS RISHI METAB OLIC PANEL BUN 8 mg/dL 8-19 Not Available [facility] (Lab) [address] [place], [address], 06/02/2024 18:08:50 06/02/20 24 06/02/2024 COMPR EHENS RISHI METAB OLIC PANEL creatinine 1.06 mg/dL 0.66-1 .25 Not Available [facility] (Lab) [address] [place], [address], 06/02/2024 18:08:50 06/02/20 24 06/02/2024 COMPR EHENS RISHI METAB OLIC PANEL GFR >60 Refer ence Range : [place] GFR Healt hy Adult : >60 [...] [facility] websi te: https :[email or web address] canas.tru rayo.olga champion/pr ofess ional s/kdo qi/gf r_cal culat or Not Available [facility] (Lab) [address] [place], [address], 06/02/2024 18:08:50 06/02/20 24 06/02/2024 COMPR EHENS RISHI METAB OLIC PANEL alkaline phosphatase 101 U/L 38-126 Not Available [facility] (Lab) [address] [place], [address], 06/02/2024 18:08:50 06/02/20 24 06/02/2024 COMPR EHENS RISHI METAB OLIC PANEL alanine aminotransfe rase 20 U/L 0-[address] [facility] (Lab) [address] [place], [address], 06/02/2024 18:08:50 06/02/20 24 06/02/2024 COMPR EHENS RISHI METAB OLIC PANEL aspartate aminotransfe rase 28 U/L 15-[address] [facility] (Lab) [address] [place], [address], 06/02/2024 18:08:50 06/02/20 24 06/02/2024 COMPR EHENS RISHI METAB OLIC PANEL bilirubin, total 1.10 mg/dL 0.20-1 .30 Not Available [facility] (Lab) [address] [place], [address], 06/02/2024 18:08:50 06/02/20 24 06/02/2024 COMPR EHENS RISHI METAB OLIC PANEL calcium 10.3 mg/dL 8.4-10 .2 high Not Available [facility] (Lab) [address] [place], [address], 06/02/2024 18:08:50 06/02/20 24 06/02/2024 COMPR EHENS RISHI METAB OLIC PANEL total protein 7.0 g/dL 6.3-8. 2 Not Available [facility] (Lab) [address] [place], [address], 06/02/2024 18:08:50 06/02/20 24 06/02/2024 COMPR EHENS RISHI METAB OLIC PANEL albumin 4.1 g/dL 3.4-5. 0 Not Available [facility] (Lab) [address] [place], [address], 06/02/2024 18:08:50 06/02/20 24 06/02/2024 COMPR EHENS RISHI METAB OLIC PANEL globulin 2.9 g/dL 2.6-4. 2 Not Available [facility] (Lab) [address] [place], [address], 06/02/2024 18:08:50 06/02/20 24 06/02/2024 COMPR EHENS RISHI METAB OLIC PANEL A/G ratio 1.4 ratio 1.0-2. 0 Not Available [facility] (Lab) [address] [place], [address], 06/02/2024 18:08:50 06/02/20 24 06/02/2024 LIPID PANEL cholesterol 165 mg/dL 140-19 9 NIH GUDELIA NSUS RECOM MENDA TION FOR ELKE STERO L: ADULT CHILD LOW RISK: <200 <170 BORDE RLINE : <200- 239 ----- HIGH RISK: >240 >200 Not Available [facility] (Lab) [address] [place], [address], 06/02/2024 18:08:54 06/02/20 24 06/02/2024 LIPID PANEL triglyceride s 112 mg/dL 0-150 NIH GUDELIA NSUS REPOR T RECOM MENDA TION FOR TRIGL YCERI KARIS: ADULT CHILD LOW RISK: <150 ----- BODER LINE: 150-1 99 ----- HIGH RISK: >200 ----- Not Available [facility] (Lab) [address] [place], [address], 06/02/2024 18:08:54 06/02/2006/02/2024 LIPID PANEL HDL cholesterol 43 mg/dL 40- Not Available [facility] (Lab) [address] [place], [address], 06/02/2024 18:08:54 06/02/2006/02/2024 LIPID PANEL LDL cholesterol, [...] WILL NOT BE REPOR VÍCTOR. Not Available [facility] (Lab) [address] [place], [address], 06/02/2024 18:08:54 06/02/20 24 06/02/2024 TSH W/REF MAGGIE FT4 TSH with reflex free T4 0.863 uIU/m L 0.465- 4.680 Not Available [facility] (Lab) [address] [place], [address], 06/02/2024 18:43:47 06/02/20 24 06/02/2024 PSA SCREE N PSA medicare screen 4.72 NG/mL 0.00-4 .00 high Not Available [facility] (Lab) [address] [place], [address], 06/02/2024 18:43:52 06/19/20 24 06/19/2024 CBC/C OMPLE TE BLD COUNT W/DIF F white blood cells 7.9 x10'3 /uL 4.2-10 .8 Not Available [facility] (Lab) [address] [place], [address], 06/19/2024 16:36:22 06/19/20 24 06/19/2024 CBC/C OMPLE TE BLD COUNT W/DIF F red blood cells 5.20 x10'6 /uL 4.10-5 .80 Not Available [facility] (Lab) [address] [place], [address], 06/19/2024 16:36:22 06/19/20 24 06/19/2024 CBC/C OMPLE TE BLD COUNT W/DIF F hemoglobin 16.7 g/dL 13.2-1 7.0 Not Available [facility] (Lab) [address] [place], [address], 06/19/2024 16:36:22 06/19/20 24 06/19/2024 CBC/C OMPLE TE BLD COUNT W/DIF F hematocrit 50.4 % 39.3-5 0.0 high Not Available [facility] (Lab) [address] [place], [address], 06/19/2024 16:36:22 06/19/20 24 06/19/2024 CBC/C OMPLE TE BLD COUNT W/DIF F mean red cell volume 96.9 fL 80.0-9 7.0 Not Available [facility] (Lab) [address] [place], [address], 06/19/2024 16:36:22 06/19/20 24 06/19/2024 CBC/C OMPLE TE BLD COUNT W/DIF F mean red cell hemoglobin 32.1 pg 27.0-3 3.0 Not Available [facility] (Lab) [address] [place], [address], 06/19/2024 16:36:22 06/19/20 24 06/19/2024 CBC/C OMPLE TE BLD COUNT W/DIF F mean RBC HGB concentratio n 33.1 g/dL 31.0-3 6.0 Not Available [facility] (Lab) [address] [place], [address], 06/19/2024 16:36:22 06/19/20 24 06/19/2024 CBC/C OMPLE TE BLD COUNT W/DIF F red cell distribution width 13.2 % 11.8-1 5.5 Not Available [facility] (Lab) [address] [place], [address], 06/19/2024 16:36:22 06/19/20 24 06/19/2024 CBC/C OMPLE TE BLD COUNT W/DIF F platelets 247 x10'3 /uL 150-40 0 Not Available [facility] (Lab) [address] [place], [address], 06/19/2024 16:36:22 06/19/20 24 06/19/2024 CBC/C OMPLE TE BLD COUNT W/DIF F mean platelet volume 9.6 fL 9.0-12 .4 Not Available [facility] (Lab) [address] [place], [address], 06/19/2024 16:36:22 06/19/20 24 06/19/2024 CBC/C OMPLE TE BLD COUNT W/DIF F neutrophils 63.8 % 39.0-7 2.0 Not Available [facility] (Lab) [address] [place], [address], 06/19/2024 16:36:22 06/19/20 24 06/19/2024 CBC/C OMPLE TE BLD COUNT W/DIF F lymphocytes 20.8 % 16.0-4 7.0 Not Available [facility] (Lab) [address] [place], [address], 06/19/2024 16:36:22 06/19/20 24 06/19/2024 CBC/C OMPLE TE BLD COUNT W/DIF F monocytes 10.3 % 5.0-12 .0 Not Available [facility] (Lab) [address] [place], [address], 06/19/2024 16:36:22 06/19/20 24 06/19/2024 CBC/C OMPLE TE BLD COUNT W/DIF F eosinophils 3.6 % 1.0-7. 0 Not Available [facility] (Lab) [address] [place], [address], 06/19/2024 16:36:22 06/19/20 24 06/19/2024 CBC/C OMPLE TE BLD COUNT W/DIF F basophils 1.0 % 0.0-2. 0 Not Available [facility] (Lab) [address] [place], [address], 06/19/2024 16:36:22 06/19/20 24 06/19/2024 CBC/C OMPLE TE BLD COUNT W/DIF F immature granulocytes 0.5 % 0.00-0 .50 Not Available [facility] (Lab) [address] [place], [address], 06/19/2024 16:36:22 06/19/20 24 06/19/2024 CBC/C OMPLE TE BLD COUNT W/DIF F neutrophils, absolute count 5.02 x10'3 /uL 1.5-8. 0 Not Available [facility] (Lab) [address] [place], [address], 06/19/2024 16:36:22 06/19/20 24 06/19/2024 CBC/C OMPLE TE BLD COUNT W/DIF F lymphocytes, absolute count 1.64 x10'3 /uL 1.07-3 .43 Not Available [facility] (Lab) [address] [place], [address], 06/19/2024 16:36:22 06/19/20 24 06/19/2024 CBC/C OMPLE TE BLD COUNT W/DIF F monocytes, absolute count 0.81 x10'3 /uL 0.29-0 .99 Not Available [facility] (Lab) [address] [place], [address], 06/19/2024 16:36:22 06/19/20 24 06/19/2024 CBC/C OMPLE TE BLD COUNT W/DIF F eosinophils, absolute count 0.28 x10'3 /uL 0.02-0 .53 Not Available [facility] (Lab) [address] [place], [address], 06/19/2024 16:36:22 06/19/20 24 06/19/2024 CBC/C OMPLE TE BLD COUNT W/DIF F basophils, absolute count 0.08 x10'3 /uL 0.01-0 .08 Not Available [facility] (Lab) [address] [place], [address], 06/19/2024 16:36:22 06/19/20 24 06/19/2024 CBC/C OMPLE TE BLD COUNT W/DIF F immature granulocytes ,absolute 0.04 x10'3 /uL 0.00-0 .05 Not Available [facility] (Lab) [address] [place], [address], 06/19/2024 16:36:22 06/19/20 24 06/19/2024 CBC/C OMPLE TE BLD COUNT W/DIF F nucleated red blood cells 0.0 % -[address] [facility] (Lab) [address] [place], [address], 06/19/2024 16:36:22 06/19/20 24 06/19/2024 CBC/C OMPLE TE BLD COUNT W/DIF F NRBC# 0.00 x10'3 /uL Not Available [facility] (Lab) [address] [place], [address], 06/19/2024 16:36:22 06/19/20 24 06/19/2024 COMPR EHENS RISHI METAB OLIC PANEL sodium 142 mmol/ L 137-14 5 Not Available [facility] (Lab) [address] [place], [address], 06/19/2024 16:41:25 06/19/20 24 06/19/2024 COMPR EHENS RISHI METAB OLIC PANEL potassium 5.1 mmol/ L 3.5-5. 1 Not Available [facility] (Lab) [address] [place], [address], 06/19/2024 16:41:25 06/19/20 24 06/19/2024 COMPR EHENS RISHI METAB OLIC PANEL chloride 104 mmol/ L 98-107 Not Available [facility] (Lab) [address] [place], [address], 06/19/2024 16:41:25 06/19/20 24 06/19/2024 COMPR EHENS RISHI METAB OLIC PANEL carbon dioxide 28 mmol/ L 22-30 Not Available [facility] (Lab) [address] [place], [address], 06/19/2024 16:41:25 06/19/20 24 06/19/2024 COMPR EHENS RISHI METAB OLIC PANEL anion gap 15.1 mmol/ L 14-22 Not Available [facility] (Lab) [address] [place], [address], 06/19/2024 16:41:25 06/19/20 24 06/19/2024 COMPR EHENS RISHI METAB OLIC PANEL glucose 93 mg/dL 70-99 Not Available [facility] (Lab) [address] [place], [address], 06/19/2024 16:41:25 06/19/20 24 06/19/2024 COMPR EHENS RISHI METAB OLIC PANEL BUN 12 mg/dL 8-19 Not Available [facility] (Lab) [address] [place], [address], 06/19/2024 16:41:25 06/19/20 24 06/19/2024 COMPR EHENS RISHI METAB OLIC PANEL creatinine 0.95 mg/dL 0.66-1 .25 Not Available [facility] (Lab) [address] [place], [address], 06/19/2024 16:41:25 06/19/20 24 06/19/2024 COMPR EHENS RISHI METAB OLIC PANEL GFR >60 Refer ence Range : [place] GFR Healt hy Adult : >60 [...] [facility] websi te: https ://alicia w.tru redmondy.o rg/pr ofess ional s/kdo qi/gf r_cal culat or Not Available [facility] (Lab) [address] [place], [address], 06/19/2024 16:41:25 06/19/20 24 06/19/2024 COMPR EHENS RISHI METAB OLIC PANEL alkaline phosphatase 112 U/L 38-126 Not Available [facility] (Lab) [address] [place], [address], 06/19/2024 16:41:25 06/19/20 24 06/19/2024 COMPR EHENS RISHI METAB OLIC PANEL alanine aminotransfe rase 23 U/L 0-[address] [facility] (Lab) [address] [place], [address], 06/19/2024 16:41:25 06/19/20 24 06/19/2024 COMPR EHENS RISHI METAB OLIC PANEL aspartate aminotransfe rase 32 U/L 15-[address] [facility] (Lab) [address] [place], [address], 06/19/2024 16:41:25 06/19/20 24 06/19/2024 COMPR EHENS RISHI METAB OLIC PANEL bilirubin, total 0.70 mg/dL 0.20-1 .30 Not Available [facility] (Lab) [address] [place], [address], 06/19/2024 16:41:25 06/19/20 24 06/19/2024 COMPR EHENS RISHI METAB OLIC PANEL calcium 9.8 mg/dL 8.4-10 .2 Not Available [facility] (Lab) [address] [place], [address], 06/19/2024 16:41:25 06/19/20 24 06/19/2024 COMPR EHENS RISHI METAB OLIC PANEL total protein 7.4 g/dL 6.3-8. 2 Not Available [facility] (Lab) [address] [place], [address], 06/19/2024 16:41:25 06/19/20 24 06/19/2024 COMPR EHENS RISHI METAB OLIC PANEL albumin 4.5 g/dL 3.4-5. 0 Not Available [facility] (Lab) [address] [place], [address], 06/19/2024 16:41:25 06/19/20 24 06/19/2024 COMPR EHENS RISHI METAB OLIC PANEL globulin 2.9 g/dL 2.6-4. 2 Not Available [facility] (Lab) [address] [place], [address], 06/19/2024 16:41:25 06/19/20 24 06/19/2024 COMPR EHENS RISHI METAB OLIC PANEL A/G ratio 1.6 ratio 1.0-2. 0 Not Available [facility] (Lab) [address] [place], [address], 06/19/2024 16:41:25 06/19/20 24 06/19/2024 LIPID PANEL cholesterol 193 mg/dL 140-19 9 NIH GUDELIA NSUS RECOM MENDA TION FOR ELKE STERO L: ADULT CHILD LOW RISK: <200 <170 BORDE RLINE : <200- 239 ----- HIGH RISK: >240 >200 Not Available [facility] (Lab) [address] [place], [address], 06/19/2024 16:41:29 06/19/20 24 06/19/2024 LIPID PANEL triglyceride s 144 mg/dL 0-150 NIH GUDELIA NSUS REPOR T RECOM MENDA TION FOR TRIGL YCERI KARIS: ADULT CHILD LOW RISK: <150 ----- BODER LINE: 150-1 99 ----- HIGH RISK: >200 ----- Not Available [facility] (Lab) [address] [place], [address], 06/19/2024 16:41:29 06/19/20 24 06/19/2024 LIPID PANEL HDL cholesterol 52 mg/dL 40- Not Available [facility] (Lab) [address] [place], [address], 06/19/2024 16:41:29 06/19/20 24 06/19/2024 LIPID PANEL [...] WILL NOT BE REPOR VÍCTOR. Not Available [facility] (Lab) [address] [place], [address], 06/19/2024 16:41:29 06/19/20 24 06/19/2024 TSH W/REF MAGGIE FT4 TSH with reflex free T4 0.603 uIU/m L 0.465- 4.680 Not Available [facility] (Lab) [address] [place], [address], 06/19/2024 17:11:18 04/21/20 24 01/16/2024 CT, angio gram, abdom en + pelvi s, w/ contr ast No observ ation record ed. BARCODE Not Available 2023 13:53:01 06/19/20 24 06/19/2024 US, bladd er No observ ation record ed. [email or web address] [facility] [address], [place], [address], 06/19/2024 15:14:13 10/13/19 25 01/16/2024 US, echoc ardio gram, trans thora cic, compl ete No observ ation record ed. BARCODE Not Available 2024 15:56:49 01/27/20 25 01/26/2025 imagi ng/di agnos tic resul t No observ ation record ed. [facility] [address], [place], [address], 01/26/2025 10:50:17 Result Notes None recorded. Problems Name Problem SNOMED Code Status Onset Date Resolution Date Notes Provider Name and Address Organization Details Recorded Time History of calculus of kidney 819102177 Active 2020 Not Available [facility] 3 06:08:27 Smoker 63884639 Active 2023 Paul Urena MD [address], [address], [place], [address] , [employer] 4 15:47:42 Solitary nodule of lung 752647203 Active 2023 Paul Urena MD [address], [address], [place], [address] , [employer] 4 15:49:25 Severe chronic obstructive pulmonary disease 166340358 Active 2023 Paul Urena MD [address], [address], [place], [address] , [employer] 4 15:54:08 Essential hypertension 02896905 Active 2023 Barbara carlisle MD [address], [address], [place], [address] , [employer] [facility] [employer] 4 18:36:22 Prostate specific antigen above reference range 605283306 Active 2023 Barbara carlisle MD [address], [address], [place], [address] , [employer] [facility] 4 14:53:00 Hyperlipidemi a 84677363 Active 2023 Barbara carlisle MD [address], [address], [place], [address] , [place] [facility] [place] [employer] [facility] 4 14:55:46 Anxiety 74505223 Active 2023 Reinaldo Arnold MD [address], [address], [place], [address] , [employer] 4 15:33:08 Benign prostatic hyperplasia with outflow obstruction 523994421 Active 2023 Reinaldo Arnold MD [address], [address], [place], [address] , [employer] [facility] 4 15:41:13 Erythrocytosi s 366129636 Active 2024 Barbara carlisle MD [address], [place], [address] , [employer] [facility] 5 11:29:23 Malignant neoplasm of lung 649103403 Active 2024 Barbara carlisle MD [address], [place], [address] , [employer] [facility] 5 11:55:45 Adenocarcinom a of lung 726509354 Active 2024 Paul Urena MD [address], [address], [place], [address] , [employer] [facility] 5 15:05:20 Chronic obstructive pulmonary disease 68436943 Active 2024 Barbara carlisle MD [address], [address], [place], [address] , [employer] [place] [employer] [facility] 5 13:20:17 Nausea and vomiting 67442047 Active 2024 Barbara carlisle MD [address] [facility], [facility] [address], [place], [address] , [employer] 13:20:17 Notes:2-D echocardiogram EF 50%, mild MR, [...] catheterization 2023 Transbronchial biopsy 2023 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 Procedures Surgical History Date Name Laterality Status Provider Name and Address Organization Details Recorded Time removal completed Not Available [facility] 08/2022 05:58:49 Back Surgery completed Natalie Garrison [place] [employer] [facility] [employer] 04/27/2024 15:17:56 Back Surgery completed Natalie Garrison [place] [employer] [facility] [employer] [facility] 04/27/2024 15:17:57 Back Surgery completed Natalie Garrison [place] [employer] [facility] 04/27/2024 15:17:58 Imaging Results None recorded. Procedure [...] Not Available Not Available Not [employer] labandrew [employer] Aerosphere 160 mcg-9mcg-4. 8mcg/actuat ion HFA aerosol inhaler INHALE 2 PUFFS BY MOUTH TWICE DAILY active Not Available Not Available No t Available Vitals Date Recorded Heart rate Respiratory rate Provider N arielle and Address Organization Details Last Updated DateTime 10/13/2024 87 /min 14 /min Paul Urena MD [address] [facility], [facility] [address], [place], [address], [employer] [facility] [employer] 10/13/2024 15:20:53 Date Recorded Body height Body mass index (BMI) Body weight Body temperature Heart rate Systolic blood pressure Diastolic blood pressure Provider Name and Address Organization Details Last Updated DateTime 5 179.07 cm 18.7 kg/m2 03462.1 9 g 97.7 [degF] 90 /min 124 mm[Hg] 76 mm[Hg] YUNG Sanchez [employer] [facility] [employer] 5 11:18:21 Date Recorded Body height Body mass index (BMI) Body weight Heart rate Body temperature Oxygen saturation Oxygen saturation in Arterial blood by Pulse oximetry Systolic blood pressure Diastolic blood pressure Provider Name and Address Organization Details Last Updated DateTime 5 179.07 cm 18.7 kg/m2 94374.1 9 g 87 /min 97.5 [degF] 98 % 98 % 116 mm[Hg] 74 mm[Hg] Matilde Tello MA [facility] [employer] 5 14:41:57 Date Recorded Body height Body mass index (BMI) Body weight Body temperature Heart rate Oxygen saturation Oxygen saturation in Arterial blood by Pulse oximetry Systolic blood pressure Diastolic blood pressure Provider Name and Address Organization Details Last Updated DateTime 4 179.07 cm 17.3 kg/m2 58594.2 7 g 96.4 [degF] 72 /min 96 % 96 % 126 mm[Hg] 76 mm[Hg] Natalie Garrison MA [facility] [employer] [facility] 4 09:44:05 Date Recorded Body height Body mass index (BMI) Body weight Body temperature Heart rate Systolic blood pressure Diastolic blood pressure Provider Name and Address Organization Details Last Updated DateTime 4 179.07 cm 18.4 kg/m2 87173.0 1 g 97.4 [degF] 78 /min 120 mm[Hg] 80 mm[Hg] YUNG Sanchez [facility] [employer] [facility] 4 14:34:19 Date Recorded Body height Heart rate Body temperature Body mass index (BMI) Body weight Oxygen saturation Oxygen saturation in Arterial blood by Pulse oximetry Systolic blood pressure Diastolic blood pressure Provider Name and Address Organization Details Last Updated DateTime 4 179.07 cm 90 /min 97.3 [degF] 18.1 kg/m2 98698.8 2 g 96 % 96 % 133 mm[Hg] 87 mm[Hg] Liliana Maynard CMA [facility] [employer] [facility] 4 15:10:09 Social History Question Answer Notes LastModified by Organizat ion Details LastModified Time Tobacco Smoking Status Current Every Day Smoker Not Available [facility] 10/17/2022 05:55:30 Do You Have An Advance Directive? No [id number] Information not available 10/17/2022 What Is Your Level Of Caffeine Consumption? Heavy [id number].[id number] Information not available 10/17/2022 How Much Tobacco Do You Chew? None MIGRATION.[id number] Information not available 10/17/2022 In The 14 Days Before Symptom Onset, Have You Had Close Contact With A Laboratory-confir med COVID-19 While That Case Was Ill? No MIGRATION.[id number] Information not available 10/17/2022 In The 14 Days Before Symptom Onset, Have You Had Close Contact With A Person Who Is Under Investigation For COVID-19 While That Person Was Ill? No MIGRATION.[id number] Information not available 10/17/2022 What Type Of Diet Are You Following? REGULAR MIGRATION.[id number] Information not available 10/17/2022 Which Illicit Or Recreational Drugs Have You Used? NONE MIGRATION.[id number] Information not available 10/17/2022 Do You Have [...] 14 STARTED SMOKING AROUND 12 YEARS OLD MIGRATION.[id number] Information not available 10/17/2022 Are You Passively Exposed To Smoke? No Information no t available 04/27/2024 How Much Tobacco Do You Smoke? 1 PPD 1.5 Packs Per Day Information not available 10/13/2024 Do You Use Sunscreen Routinely? No MIGRATION.[id number] Information not available 10/17/2022 Have You Recently [...] is your level of alcohol consumption? Occasional MIGRATION.[id number] 8243 Information not available 10/17/2022 Do you or have you ever used smokeless tobacco? Never used smokeless tobacco MIGRATION.324097 3437 Information not available 10/17/2022 Are you currently employed? Yes Information not available 10/13/2024 Have you been exposed to chemicals or toxins? 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 Never used electronic cigarettes MIGRATION.230317 5053 Information not available 10/17/2022 What is your exercise level? None MIGRATION.[id number] 6610 Information not available 10/17/2022 Mental Status Question Answer Note LastModified by Organization D etails LastModified Time Do you feel stressed (tense, restless, nervous, or anxious, or unable to sleep at night)? [id number] Information not available 04/27/2024 Family History Relationship Description Onset Age of this Age Resolved Age Notes LastModified by Organization Details LastModified Time Mother Family history of malignant neoplasm [id number] Not available 10/17/2022 05:58:51 Mother Aneurysm MIGRATION.470 [id number] Not available 10/17/2022 05:58:51 Maternal Grandfather Family history of malignant neoplasm MIGRATION.[id number] Not available 10/17/2022 05:58:52 Medical History Condition [...] pneumococcal polysaccharide PPV23 0 completed Not Available [facility] 10/17/2022 06:18:40 Tdap 0 completed Not Available [facility] 10/17/2022 06:18:40 Influenza, split virus, trivalent, PF 4 completed Barbara Mcdonald MD [address] [place] [address], [place], [address], [facility] [employer] 06/12/2024 23:53:37 Past Encounters Encounter ID Performer Location Encounter Start Date Encounter Closed Date Diagnosis/Indication Diagnosis SNOMED-CT Code Diagnosis ICD10 Code Diagnosis Note [id number] Paul Urena MD [facility] Pulmonolo gy [place] [address] [facility] [address] [place] [address] 04/27/2024 14:37:02 04/28/2024 15:19:38 Smoker 16398612 F17.218 F17.219 Z87.891 Solitary n odule of lung 784396166 R91.1 Severe chr onic obstructive pulmonary disease 949422332 J44.9 Dyspnea on exertion 6084 5006 R06.09 R05.9 T78.40XA D89.9 [id number] Barbara carlisle MD [facility] Internal Med [facility] [address] [facility] [address] [place] [address] 04/30/2024 09:26:00 04/30/2024 10:28:20 Screening - NAD 142730884 Z13.9 C-scope: Get this if not done Get yearly flu shot, get Tdap if not doneCan do shingrix vaccineGet RSV vaccine, can do COVID 19 vaccine RTC in 3 months, do labs Essential hypertension 87158409 I10 [facility] Dr Wells 03/31/2024 , f/u in one month On nifedipine ER 30mg dailyGet labs Chronic ob structive pulmonary disease 25577144 J44.9 Alice Larios n odasaf of lung 710209852 R91.1 Dr Urena 04/27/2024 Referred to thoracic surgeon by Dr Starr referred to Dr Urena Screening for malignant neoplasm of prostate 751381901 Z12.5 Screening for malignant neoplasm of colon 776736368 Z12.11 [id number] Barbara carlisle MD [facility] Internal Med [facility] [address] [facility], [facility] [address] [place] [address] 06/04/2024 14:22:36 06/04/2024 15:16:16 Screening - NAD 375561608 Z13.9 C-scope: Get this if not done Get yearly flu shot, get Tdap if not doneCan do shingrix vaccineGet RSV vaccine, can do COVID 19 vaccine RTC in 3 months, do labs, ER if worse, he did verbalize his understand ing of the above Essential hypertension 80638797 I10 [facility] 03/04/[address] [facility] [address] Wells 03/31/2024 , f/u [facility] Dr Wells 04/27/2024 , f/u in 6 months On nifedipine ER 30mg dailyGet labs Chronic ob structive pulmonary disease 50110478 J44.9 Alice Larios n odasaf of lung 134171913 R91.[address] 03/12/2204 Dr Urena 04/27/2024 Referred to thoracic surgeon by Dr Urena, Dr Shon Kingsley referred to Dr Urena Screening for malignant neoplasm of colon 103881696 Z12.11 Prostate s pecific antigen above reference range 552020828 R97.20 Get a referral to urologist Hyperkalemia 60031548 E8 7.5 Repeat the K level Hyperlipidemia 08465416 E78.5 More diet and exerciseHe has declined any meds as he feels that this is 'borderlin e'Repeat the labs Administra tion of influenza vaccine 40371642 Z23 [id number] Reinaldo Arnold MD S[facility] [address] [facility] [address] [place] [address] 06/19/2024 14:58:36 06/19/2024 15:58:08 Prostate specific antigen above reference range 399816091 R97.20 Anxiety 29345556 F41.9 Benign pro static hyperplasia with outflow obstruction 488058324 N40.1 [id number] Barbara carlisle MD [facility] Internal Med [facility] [address] [place] [address] 10/13/2024 10:59:33 10/13/2024 11:56:30 Screening - NAD 495312275 Z13.9 C-scope: Get this if not done, referred 10/13/2024 Get yearly flu shot, get Tdap if not doneCan do shingrix vaccineGet RSV vaccine, can do COVID 19 vaccine RTC in 3 months, do labs, ER if worse, he did verbalize his understand ing of the above Essential hypertension 16528603 I10 [facility] 03/04/[address] [facility] [address] Wells 03/31/2024 , f/u in [facility] Dr Wells 04/27/2024 , f/u in 6 months On nifedipine ER 30mg daily renewed 10/13/2024 Get labs Chronic ob structive pulmonary disease 63489133 J44.9 SmokerOn Karoline [address] Urena Solitary n odule of lung 588195212 R91.[address] 03/12/2204 Dr Urena 04/27/2024 Referred to thoracic surgeon by Dr Urena, Dr Shon Kingsley referred to Dr Ayanna Lindquist 07/10/2024 , referred to Dr Valderrama, as per Dr Lindquist 10/13/2024 , to get SBRT treatmentH e should see Dr Lindquist Screening for malignant neoplasm of colon 828636824 Z12.11 Prostate s pecific antigen above reference range 174525813 R97.20 Get a referral to urologist Hyperlipidemia 80187975 E78.5 More diet and exerciseHe has declined any meds as he feels that this is 'borderlin e'Repeat the labs Erythrocytosis 731591123 D75.[address] Lindquist Nausea and vomiting 1693 1999 R11.2 Will get on zofranWill do CT A/P with oncology, did personally speak with Dr Lindquist, today regarding his care Malignant neoplasm of lung 616055124 C34.90 S/p visit with Dr Vela/p radiaton Rx Dr Valderrama, now will have a follow up with Dr Lindquist again [id number] Paul Urena MD S[facility] Pulmonolo [facility] [place] [address] [facility] [address] [place] [address] 10/13/2024 14:21:47 10/13/2024 15:24:35 Smoker 58745070 F17.218 F17.219 Z87.891 Severe chr onic obstructive pulmonary disease 858464836 J44.9 Adenocarci noma of lung 385165499 C34.90 Health Concerns Section Related Observation LastModified by Organization Detai ls LastModified Time None Recorded Concern Status LastModified by Organization Details LastModified Time None Recorded Advance Directives Directive N: Payers Insurance Date Sequence Insurance Name Policy Number Policy Martin Covered Member ID Martin Member ID Guarantor Name 01/09/2025 1 [facility] [id number] Prosper Dodson [id number] Prosper Dodson Notes Date Note Type Note Provider Name and Address Organization Details Recorded Time 04/30/2024 text/html OV 04/30/2024:He re to establish care Present hx:HTNCOPDLung nodule Here to discuss above, states that he was seen by Dr Urena and the take out waiter, did have a PET CT and is now referred to more testing Barbara Mcdonald MD [address] [facility] [address], [place], [address], [place] [employer] 05/04/2024 17:39:02 06/04/2024 text/html OV 04/30/2024:He re to establish care Present hx:HTNCOPDLung nodule Here to discuss above, states that he was seen by Dr Urena and the take out waiter, did have a PET CT and is now referred to more testing OV 06/04/2024: Here for his f/u apt, he is doing well, he did do the labs on 06/02/2024 Barbara Mcdonald MD [address] [employer], [address], [place], [address], [employer] 06/12/2024 23:55:15 06/19/2024 text/html this patient has [...] gross hematuria. Reinaldo Arnold MD [address], [place], [address], [employer] 07/08/2024 17:41:34 10/13/2024 text/html Primary care/Referring provider: [...] cold airAlleviating factors: rest Modified [employer] [place] (mMRC) Dyspnea Scale - Grade 2Grade 0 [...] history: Albuterol HFA as needed since 02/2024 [facility] aerosphere 160/9/4.8 mcg 2 puffs BID Other symptoms:Drooling: [...] moderate chance of dozing. Paul Urena MD [address] [place] [address], [facility] [address], [place], [address], [place] [facility] [employer] 10/13/2024 15:21:11 10/13/2024 text/html OV 04/30/2024:He re to establish care Present hx:HTNCOPDLung nodule Here to discuss above, states that he was seen by Dr Urena and the take out waiter, did have a PET CT and is [...] fast food', none today Barbara Mcdonald MD [address] [place] [address], [facility] [address], [place], [address], [place] [facility] [employer] [facility] 10/13/2024 12:03:48
--- OUTSIDE RECORDS SUMMARY | 2025-02-03 17:09 | XMS_ITS | Clinical Summary ---
Author Organization [facility] [employer] Address [address] [facility] [place] [address] Care Team Providers Care Calibration Laboratory Technician Name Role Phone Barbara Mcdonald MD Primary Care Provider Source Comments [facility] [employer],non-owned Affiliates and Associated Physician Practices is amultiple site organization consisting of ambulatory clinics and hospital sitesin [place]. This disclosure is being madepursuant to the Care Everywhere program and may not contain all information available regarding this patient. Last updated 18.[facility] [employer] Allergies No known active allergies Medications * [...] complete this topic [place] [place] [id number] [place] [address] CARE SELF PAY NO INSURANCE Member Subscriber Plan / Payer (Ef fective for All Dates) Name:Duong Dodson Member ID:Not on file Relation to Subscriber:Not on file Name:DUONG DODSON Subscriber ID:Not on file (Home) Address: [address] [place] [address] Payer ID:Not on file Group ID:Not on file Type:Self Pay Address: [facility] Member Subscriber Plan / Payer (Ef fective 2025-Present) Name:Duong Dodson Relation to Subscriber:Self Name:Duong Dodosn Payer ID:[id number] (NAIC) Type:HMO Address: [place] [id number] [place] [id number] Care Teams Calibration Laboratory Technician Relationship Specialty Start Date End Date Barbara Mcdonald MD [address] [facility] [address] [place] [id number] PCP - General Internal Medicine 04/29/24
== END 2025-02-03 15:18 | disposition home or self-care (01) ==
LOC: ANHLAB 15:18
PROVIDERS: PCP Internal Medicine; Visit Provider Internal Medicine Hematology & Oncology
DX: C34.12 Malignant neoplasm of upper lobe, left bronchus or lung (principal)
CPT/HCPCS: 36415; 80047; 80053; 85025